=== PATIENT | female | born 1940 | race Caucasian/White ===

== ENCOUNTER 2017-08-13 21:44 | Observation (INO) | payer MEDICARE ==
[2017-08-14] MEDS ORDERED: Ondansetron ODT 4 MG TAB SL PRN (00:28)
[2017-08-14] MEDS ORDERED: Ondansetron HCl/PF 4 MG/2 ML Vial IVP PRN (00:28)
[2017-08-14] MEDS ORDERED: Acetaminophen 325 MG TAB PO PRN ×2 (00:28→07:30)
[2017-08-14] MEDS ORDERED: Dextrose 5 % And 0.9 % NaCl 1,000 ML IV SCH (00:30)
[2017-08-14 01:04] VITALS: BMI 38.5
[2017-08-14] MEDS ORDERED: Dextrose 50% Abboject 50 ML SYRINGE ONE (05:57)
[2017-08-14] MEDS ORDERED: Dextrose 50% Abboject 50 ML SYRINGE SLOW IVP SCH (06:15)
[2017-08-14] MEDS ORDERED: Dextrose 5% in Water 1,000 ML IV SCH (06:15)
[2017-08-14] MEDS ORDERED: Dextrose 10% in Water 1,000 ML IV SCH (06:30)
[2017-08-14] MEDS ORDERED: Dextrose 50% Abboject 50 ML SYRINGE SLOW IVP PRN (07:30)
[2017-08-14] MEDS ORDERED: Ondansetron ODT 4 MG TAB PO PRN (07:30)
[2017-08-14] MEDS ORDERED: Dextrose 5% in Water 1,000 ML IV PRN (07:30)
--- NOTE | 2017-08-14 08:16 | HP ---
Transferred from [place], referred to [facility] by [facility]. PRIMARY CARE PROVIDER: Dr. Campbell ADMITTING DIAGNOSES: Hypoglycemia, nasal fracture. HISTORY OF PRESENT ILLNESS: The patient is alert, oriented x3. She states she is very dehydrated, h as had no liquids for 2 days and she is remarkably uncooperative with questioning. When asked about her medical problems she says "she has everything" Based on emergency room records, she was first se en in the [place] ER for a fall from standing and discharged home. She returned the same day with merlyn luation of hypoglycemia. Apparently had fallen in a parking lot, has been unable to wake her up, fou nd her glucose to be very low. The patient was unable to describe onset of symptoms at that time, sh e received glucagon and then D50 in the emergency room with a failure of her mental status to improve . In the emergency room second visit in [place] her CBC was really unremarkable except for a minor an emia of 11.6 grams of hemoglobin. Her blood sugars were 59 and 57 and eventually increased to 148, c reatinine kinase was modestly elevated at 181, creatinine 1.26, BUN 31, CO2 32, sodium, potassium and chloride normal. Urinalysis was clear. She was transferred to [facility] where she was found to have serial blood sugars of 102, 80 and 143, admitted to the hospital where she currentl y is. As I mentioned before, as I attempted to discuss with her, she just kept saying that she was d ehydrated and the IV fluids she was getting was a joke and that she knew what was wrong with her and her final statement was, "the reason I don't come to the hospital is you people can kill me". PAST MEDICAL HISTORY: She kept saying everything, but I did get out of her that she has diabetes ras litus type 2, insulin-dependent, that she has a cardiomyopathy from Adriamycin given for breast cance r 30 years ago, she had a right mastectomy and an axillary dissection, has subsequently received chem otherapy. MEDICATIONS: The only medication I was able to get out of her is Lantus, she refused to help me any further She did say she took tramadol. Her old records revealed glyburide, metformin, clonazepam, Ambien, torsemide, spironolactone, lisinopril, levothyroxine, Prevacid, Lamotrigine, Combivent, Lantu s 175 units in the p.m. She told me she took 22 in the morning, digoxin, Cymbalta, Flexeril, Plavix, Clemastine, Coreg and Lipitor. These have not been confirmed. ALLERGIES: She states she is allergic to ALL INHALED POLLENS. Her medical allergies listed in the c figueredo are CODEINE and VERAPAMIL. PAST SURGICAL HISTORY: I was able to get out of her she has had a total knee replacement, bilateral and sinus surgery in the past. FAMILY HISTORY: Mother and father both , she states she does not know why. SOCIAL HISTORY: , full code status. No tobacco, no alcohol. No family at bedside. REVIEW OF SYSTEMS: Attempted, as I said before, she is remarkably uncooperative. GENERAL: She says she has had multiple falls, I was not able to get out of her whether she had dizzi ness. EYES: She gave me no history there. ENT: She gave me no history there. CARDIAC: She said she had had no chest pain or smothering spells. RESPIRATIONS: She has no cough or wheezing. GASTROINTESTINAL: She says she has had no nausea, vomiting, abdominal pain or diarrhea. GENITOURINARY: She states she could not make any urine because she was severely dehydrated. MUSCULOSKELETAL: Refused to comment. NEUROLOGICAL: Refused to comment. PSYCHIATRIC: Refused to comment. SKIN: Refused to comment. HEME/LYMPH: Refused to comment. PHYSICAL EXAMINATION: GENERAL: Currently she is alert, oriented. VITAL SIGNS: Blood pressure 136/71, pulse 93, respirations 20, O2 sat 93 on room air, temperature 98 .9. HEENT: Revealed a bloody nose. Pupils grossly equal, round, and reactive. Extraocular movements gr ossly intact. Tympanic membranes; she would not let me examine her ears. Nose revealed dried blood. Oral mucous membranes are dry. NECK: No jugular venous distention, adenopathy or thyromegaly. CHEST: Clear to auscultation and percussion. HEART: Had a regular rate and rhythm. First and second heart sounds were clear. I appreciated no m urmurs or gallops. ABDOMEN: Soft, bowel sounds are normal. There is no hepatosplenomegaly, no mass, no rebound. EXTREMITIES: She had trace edema with no cyanosis or clubbing. PULSES: Carotid, radial, femoral, and dorsalis pedis pulses were palpable. SKIN: Warm and dry. The only lesion noted was her nose. HEME/LYMPH: No tender or swollen lymph nodes in axilla, inguinal or cervical area. NEUROLOGIC: Cranial nerves II-XII are intact. Deep tendon reflexes grossly symmetric. Moves all ex tremities. EKG shows paced rhythm, dual chamber pacing. X-RAY FINDINGS: Chest x-ray: Pacemaker in left upper chest, surgical clips in the right axilla from previous surgery, cardiomegaly, questionable pulmonary vascular congestion, reviewed by me. LABORATORY DATA: Reviewed as given in the present illness. ASSESSMENT: 1. Multiple falls. 2. Hypoglycemia. 3. Diabetes mellitus type 2, insulin-dependent. 4. Cardiomyopathy. 5. Chronic kidney disease stage 3. Accu-Cheks q.4h. will be given. At this time her insulin will be held until we get a firm list of me dicines. She will be placed in the hospital on an observation basis. She will be fed with a consist ent carbohydrate diet. She will be given D5 1/4 normal saline. CBC and basic metabolic profile will be repeated in the morning or later today if appropriate.
[2017-08-14] MEDS: D5 1/4 NS 1,000 ML IV SCH ×3 (08:46→22:02)
[2017-08-14] MEDS ORDERED: clonazePAM 0.5 MG TAB PO PRN (09:24)
[2017-08-14] MEDS ORDERED: Zolpidem Tartrate 5 MG TAB PO PRN (09:51)
[2017-08-14] MEDS: Cyclobenzaprine 10 MG TAB PO PRN ×2 (12:07→22:02)
[2017-08-14] MEDS: traMADol HCl 50 MG TAB PO PRN ×3 (12:07→22:02)
[2017-08-14] MEDS ORDERED: traMADol HCl 50 MG TAB PO PRN (12:36)
[2017-08-14] MEDS ORDERED: [UNRECOGNIZED DRUG - OTHER] PO SCH (21:00)
[2017-08-14] MEDS ORDERED: Carvedilol 25 MG TAB PO SCH (21:00)
[2017-08-14] MEDS ORDERED: Atorvastatin Calcium 40 MG TAB PO SCH (21:00)
[2017-08-14] MEDS: DULoxetine 60 MG CAP PO SCH (21:46)
[2017-08-15 05:29] LABS: Anion Gap 8 mmol/L (10-20); BUN (Urea Nitrogen) 11 mg/dL (9.8-20.1); Calc. Creatinine Clearance 126 mL/min (70-130); Calcium 10.1 mg/dL (7.8-10.44); Carbon Dioxide 30 mmol/L (23-31); Chloride 106 mmol/L (98-107); Estimated GFR-MDRD 87
[2017-08-15] MEDS ORDERED: Levothyroxine Sodium 100 MCG TAB PO SCH (06:00)
[2017-08-15 06:11] LABS: Band 1 % (5-11); Mean Platelet Volume 7.1 fL (7.4-10.4); Neutrophil 38 % (42-75); Red Blood Cell (RBC) Count 3.78 mill/uL (4.20-5.40); White Blood Cell (WBC) Count 5.7 thou/uL (4.8-10.8)
[2017-08-15] MEDS ORDERED: Budesonide 0.5 MG/2 ML NEB NEB SCH (07:00)
[2017-08-15] MEDS ORDERED: Non-Formulary Item 1 EACH (Glyburide/Metformin Hcl [Glyburide/Metformin] 1 TABLET) PO SCH (08:00)
[2017-08-15] MEDS ORDERED: metFORMIN 500 MG TAB PO SCH (08:00)
[2017-08-15] MEDS ORDERED: glyBURIDE 2.5 MG TAB PO SCH (08:00)
[2017-08-15] MEDS ORDERED: ICOSAPENT ETHYL PO SCH (08:00)
[2017-08-15 08:17] VITALS: BP 116/60; TEMP 98.5
[2017-08-15] MEDS: D5 1/4 NS 1,000 ML IV SCH (08:40)
[2017-08-15] MEDS ORDERED: Non-Formulary Item 1 EACH (Ipratropium-Albuterol [Combivent] 2 PUFF) INH SCH (09:00)
[2017-08-15] MEDS ORDERED: Spironolactone 25 MG TAB PO SCH ×2 (09:00)
[2017-08-15] MEDS ORDERED: Clopidogrel Bisulfate 75 MG TAB PO SCH (09:00)
[2017-08-15] MEDS ORDERED: Torsemide 20 MG TAB PO SCH ×2 (09:00)
[2017-08-15] MEDS ORDERED: lamoTRIgine 100 MG TAB PO SCH (09:00)
[2017-08-15] MEDS ORDERED: Digoxin 0.125 MG TAB PO SCH (09:00)
[2017-08-15] MEDS ORDERED: Lisinopril 10 MG TAB PO SCH (09:00)
[2017-08-15] MEDS ORDERED: OMEGA ACID ETHYL ESTERS PO SCH ×2 (09:00)
[2017-08-15] MEDS ORDERED: Montelukast Sodium 10 mg Tablet PO SCH (09:00)
[2017-08-15] MEDS ORDERED: Loratadine 10 MG TAB PO SCH (09:00)
[2017-08-15] MEDS ORDERED: Pregabalin 75 MG CAP PO SCH (09:00)
[2017-08-15] MEDS ORDERED: Carvedilol 25 MG TAB PO SCH (09:00)
[2017-08-15] MEDS: DULoxetine 60 MG CAP PO SCH (10:20)
--- NOTE | 2017-08-15 11:14 | DIS ---
TRANSFER OF CARE NOTE DATE OF ADMISSION: 08/13/2017 DATE OF DISCHARGE: 08/15/2017 DISCHARGE DISPOSITION: Home. PRIMARY CARE PROVIDER: Dr. Campbell FINAL DIAGNOSES: 1. Hypoglycemia. 2. Falls. 3. Altered mental status. 4. Diabetes mellitus type 2 with chronic kidney disease stage 3. 5. Cardiomyopathy. 6. Ill-defined psychiatric problem. 7. History of breast cancer post-resection and chemotherapy. DISCHARGE MEDICATIONS: Lantus 210 units a day has been held. Tramadol 100 mg p.o. t.i.d. p.r.n., Du oNeb 3 mL q.6 p.r.n., Combivent 2 puffs q.i.d., Demadex 40 mg a day, spironolactone 25 mg a day, lis inopril 30 mg a day, Flexeril 10 mg t.i.d. p.r.n., digoxin 125 mcg a day, Lamotrigine 200 mg a day, I mdur 30 mg a day, clemastine fumarate 2.68 mg p.o. b.i.d., Coreg 25 mg twice a day, Pulmicort 0.5 mg nebulized daily, Prevacid 30 mg a day, Vascepa 2 grams b.i.d., Lipitor 80 mg a day, levothyroxine 20 0 mcg a day, glyburide/metformin 1.25/250 once a day, trazodone 100 mg at bedtime, Lyrica 75 mg 3 asya es a day, Cymbalta 60 mg a day. ALLERGIES: CODEINE, ORANGE JUICE and VERAPAMIL. PENDING AT THE TIME OF DISCHARGE: Nothing. CODE STATUS: FULL. HOSPITAL COURSE: The patient transferred to [facility] from [facility] after fal ling, suffering a nasal fracture, noted to have marked hypoglycemia. She was a difficult historian a nd it took a while to get her medicine list from her. Her initial laboratory at [facility] reve aled blood sugars below 60, creatinine 1.26, BUN 31. CK 181. CBC was essentially unremarkable. Her insulin was held. She was fed given D5 after being given D50 and D10. Subsequently, with her insul in being held her blood sugars are 203, 142, 63, 98. Her Hemoglobin A1c was 7. She is being dischar [facility] home which she is agreeable with. She has been told to not take her Lantus to see Dr. Jenni gonzalez within the next 1-2 days to discuss continuing therapy. CONSULTATIONS: None. PROCEDURES: None. CONDITION AT THE TIME OF DISCHARGE: In addition to the laboratory, she had a facial bone study which showed some comminuted, but not displaced nasal fractures. She has marked bruising on her face, but has no active bleeding. I do not think she needs any further evaluation, but she is comfortable wit h seeing Dr. Campbell to decide whether she needs to see ENT or not.
== END 2017-08-15 13:43 | disposition home or self-care (01) ==
LOC: ERS 21:44 → 2SE 22:45
PROVIDERS: ADMIT Internal Medicine; ATTEND Internal Medicine
DX: E11.649 Type 2 diabetes mellitus with hypoglycemia without coma (principal); E11.22 Type 2 diabetes mellitus with diabetic chronic kidney disease; N18.3 Chronic kidney disease, stage 3 (moderate); R41.82 Altered mental status, unspecified; I42.9 Cardiomyopathy, unspecified; F99 Mental disorder, not otherwise specified; Z88.5 Allergy status to narcotic agent; Z88.8 Allergy status to other drugs, medicaments and biological substances; Z91.018 Allergy to other foods; Z79.4 Long term (current) use of insulin; Z79.899 Other long term (current) drug therapy; Z98.890 Other specified postprocedural states; Z91.81 History of falling; Z85.3 Personal history of malignant neoplasm of breast; Z92.21 Personal history of antineoplastic chemotherapy
CPT/HCPCS: 80048; 82962 ×3; 83036; 85025; 96361; 96365; 96366; 96375; 99285; G0378; 36415; 36416; A4216

== ENCOUNTER 2017-08-21 18:07 | Emergency (ER) | payer MEDICARE ==
--- NOTE | 2017-08-21 21:56 | RAD ---
PORTABLE CHEST 08/21/17 PROVIDED CLINICAL HISTORY: Altered mental status. FINDINGS: Comparison 08/13/17. The cardiac and mediastinal silhouette is unchanged in appearance. The left subclavian cardiac pacing device is redemonstrated. No focal consolidation, pleural fluid or pneumothorax apparent. IMPRESSION: No evidence for an acute cardiopulmonary process. POS: [facility]
--- NOTE | 2017-08-21 21:59 | CT ---
CT OF BRAIN 08/21/17 PROVIDED CLINICAL HISTORY: Fall. FINDINGS: Comparison 08/13/17. The ventricular system appears normal in size and morphology. There is no evidence for intracranial h emorrhage or mass effect. The extracranial soft tissues and osseous structures demonstrate No acute a bnormality. IMPRESSION: No evidence for intracranial hemorrhage or mass effect. POS: [facility]
--- NOTE | 2017-08-21 22:01 | CT ---
CT CERVICAL SPINE 08/21/17 PROVIDED CLINICAL HISTORY: FALL. FINDINGS: There is no evidence for fracture or traumatic subluxation. Advanced multilevel degenerative changes are seen. 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 No prev ertebral soft tissue swelling apparent. The visualized lung apices appear clear. IMPRESSION: No evidence for fracture or traumatic subluxation. POS: [facility]
--- NOTE | 2017-08-21 22:17 | CT ---
CT FACIAL BONES 08/21/17 PROVIDED CLINICAL HISTORY: Face pain status post fall. FINDINGS: Correlation is made with prior brain CT of 08/13/17. Comminuted nondisplaced fracture involving the right and left aspects of the nasal bone is redemonstr ated, similar to prior study. No additional fracture is evident. The globes and other orbital content s appear unremarkable. IMPRESSION: Nasal bone fracture is redemonstrated. No evidence for an acute osseous abnormality. POS: [facility]
[2017-08-21 22:22] LABS: Hematocrit 37.9 % (36.0-47.0); Mean Platelet Volume 6.9 fL (7.4-10.4); Red Blood Cell (RBC) Count 4.09 mill/uL (4.20-5.40); White Blood Cell (WBC) Count 6.5 thou/uL (4.8-10.8)
[2017-08-21 22:29] LABS: Neutrophil 31 % (42-75)
[2017-08-21 22:39] LABS: ALT (SGPT) 26 U/L (8-55); AST (SGOT) 22 U/L (5-34); Alkaline Phosphatase 50 U/L (40-150); Anion Gap 14 mmol/L (10-20); BUN (Urea Nitrogen) 24 mg/dL (9.8-20.1); Bilirubin, Total 0.4 mg/dL (0.2-1.2); Calc. Creatinine Clearance 0 mL/min (70-130); Calcium 10.8 mg/dL (7.8-10.44); Carbon Dioxide 26 mmol/L (23-31); Chloride 102 mmol/L (98-107); Estimated GFR-MDRD 56; Globulin 3.6 g/dL (2.4-3.5); Protein, Total 7.7 g/dL (6.0-8.3)
[2017-08-21 22:43] LABS: Troponin I Less than 0.010 ng/mL (< 0.028)
[2017-08-22 03:56] LABS: Bilirubin Negative (Negative); Blood, Urine Negative (Negative); Glucose, Urine (Dipstick) Negative (Negative); Ketone, Urine Negative (Negative); Nitrite Negative (Negative); Protein, Urine (Dipstick) Negative (Neg-Trace); Urobilinogen 0.2 mg/dL (0.2-1.0)
[2017-08-22 03:59] LABS: Bacteria/HPF None Seen HPF (None Seen); Hyaline Casts/LPF 0-3 HYALINE CAST LPF (0-3 Hyaline); RBC/HPF 0-3 HPF (0-3)
== END 2017-08-22 04:28 ==
LOC: ERS 18:07
DX: S02.2XXA Fracture of nasal bones, initial encounter for closed fracture (principal); E78.5 Hyperlipidemia, unspecified; I11.0 Hypertensive heart disease with heart failure; I50.9 Heart failure, unspecified; E03.9 Hypothyroidism, unspecified; E11.9 Type 2 diabetes mellitus without complications; F31.9 Bipolar disorder, unspecified; Z87.891 Personal history of nicotine dependence; Z79.899 Other long term (current) drug therapy; Z91.81 History of falling; W19.XXXA Unspecified fall, initial encounter
CPT/HCPCS: 70450; 70486; 71010; 72125; 80053; 81003; 81015; 82553; 84484; 85025; 87086; 93005

== ENCOUNTER 2017-11-17 22:59 | Inpatient (IN) | payer MEDICARE ==
[2017-11-17 23:41] LABS: #Basophils 0.1 thou/uL (0.0-0.2); #Lymphocytes 0.6 thou/uL (1.20-3.40); #Monocytes 0.5 thou/uL (0.11-0.59); #Neutrophils 7.7 thou/uL (1.40-6.50); %Basophils 0.7 % (0.0-1.0); %Eosinophils 0.3 % (0.0-10.0); %Lymphocytes 7.1 % (21.0-51.0); %Monocytes 5.7 % (0.0-10.0); %Neutrophils 86.1 % (42.0-75.0); Hemoglobin 12.3 g/dL (12.0-16.0); Mean Corpuscular HGB CONC 32.9 g/dL (32.0-36.0); Mean Corpuscular Hemoglobin 29.9 pg (27.0-31.0); Mean Corpuscular Volume 90.7 fl (81.0-99.0); Mean Platelet Volume 7.3 fL (7.4-10.4); Platelet Count 169 thou/uL (130-400); RBC Distribution Width 12.9 % (11.5-14.5); Red Blood Cell (RBC) Count 4.13 mill/uL (4.20-5.40)
[2017-11-17] MEDS ORDERED: Acetaminophen 500 MG TAB ONE (23:50)
[2017-11-17 23:53] LABS: ALT (SGPT) 24 U/L (8-55); AST (SGOT) 31 U/L (5-34); Albumin 3.9 g/dL (3.4-4.8); Alkaline Phosphatase 70 U/L (40-150); Anion Gap 19 mmol/L (10-20); BUN (Urea Nitrogen) 27 mg/dL (9.8-20.1); Bilirubin, Total 0.6 mg/dL (0.2-1.2); Calc. Creatinine Clearance 0 mL/min (70-130); Carbon Dioxide 18 mmol/L (23-31); Chloride 99 mmol/L (98-107); Estimated GFR-MDRD 35; Globulin 3.5 g/dL (2.4-3.5); Potassium 4.7 mmol/L (3.5-5.1); Protein, Total 7.4 g/dL (6.0-8.3); Sodium 131 mmol/L (136-145)
[2017-11-17 23:54] LABS: Bilirubin Negative (Negative); Blood, Urine Moderate (Negative); Clarity CLOUDY (Clear); Glucose, Urine (Dipstick) >=1000 mg/dL (Negative); Leukocyte Moderate (Negative); Nitrite Negative (Negative); Protein, Urine (Dipstick) 100 mg/dL (Neg-Trace); Specific Gravity, Urine 1.027 (1.002-1.036); Urobilinogen 0.2 mg/dL (0.2-1.0); pH, Urine 5.5 (5.0-9.0)
[2017-11-17 23:55] LABS: Glucose 584 mg/dL (83-110)
[2017-11-17 23:57] LABS: Bacteria/HPF Rare-Few HPF (None Seen); Pathc Cast-AUWi Flag 1.62 (0-2.49); Squamous Epithelial 0-3 HPF (0-3)
[2017-11-17 23:57] LABS: Actual Bicarbonate (HCO3a) 20.1 mEq/L (22-26); Base Excess (BEa) -4.4 mEq/L (0 (+/-) 2.5); CO2 Tension 34.9 mmHg (35.0-45.0); Hematocrit-ABG 40.2 % (36.0-47.0); Hemoglobin (Hb) 11.8 g/dL (12.0-16.0); O2 Tension (PaO2) 90.6 mmHg (80.0-100.0); pH, Arterial 7.38 (7.35-7.45)
[2017-11-17 23:58] LABS: Analyzer IN Cardio ER; Calcium, Ionized 1.3 mmol/L (1.12-1.30); Puncture Site RR
[2017-11-18 00:10] LABS: Crystals/HPF 1+ AMORPH URATES HPF (Negative); Hyaline Casts/LPF NONE SEEN LPF (0-3 Hyaline)
[2017-11-18] MEDS ORDERED: Magnesium Sulfate 2 GM/100 ML BAG ONE (00:11)
[2017-11-18] MEDS ORDERED: Bacitracin Zinc 1 Packet ONE (00:29)
[2017-11-18] MEDS ORDERED: Sodium Chloride 0.9% 1,000 ML IV SCH ×3 (01:59→10:15)
[2017-11-18] MEDS ORDERED: traMADol HCl 50 MG TAB PO PRN ×2 (03:20→03:52)
[2017-11-18] MEDS ORDERED: Cyclobenzaprine 10 MG TAB PO PRN (03:20)
[2017-11-18] MEDS ORDERED: Non-Formulary Item 1 EACH (Trazodone [Trazodone] 100 MG) PO PRN (03:20)
[2017-11-18] MEDS ORDERED: HumaLOG 300 UNITS/3 ML VIAL SC PRN (03:22)
[2017-11-18] MEDS ORDERED: Dextrose 50% Abboject 50 ML SYRINGE SLOW IVP PRN (03:22)
[2017-11-18] MEDS ORDERED: Dextrose 5% in Water 1,000 ML IV PRN (03:22)
[2017-11-18 03:26] LABS: Lactic Acid 3.3 mmol/L (0.5-2.2)
[2017-11-18] MEDS ORDERED: Gentamicin 80 MG/2 ML VIAL IVPB SCH (03:30)
[2017-11-18] MEDS ORDERED: GENTAMICIN IVPB PRN (03:35)
[2017-11-18] MEDS ORDERED: Magnesium 2 GM/NS 0.9% 100 ML 2 GM in Premix Bag 1 BAG IVPB SCH (03:45)
[2017-11-18] MEDS ORDERED: Gentamicin Sulfate 380 MG in Sodium Chloride 0.9% 100 ML IVPB SCH (03:45)
[2017-11-18] MEDS: Sodium Chloride 0.9% 1,000 ML IV SCH ×3 (04:31→23:57)
[2017-11-18 04:33] LABS: #Lymphocytes 1.3 thou/uL (1.20-3.40); #Monocytes 0.5 thou/uL (0.11-0.59); #Neutrophils 10.6 thou/uL (1.40-6.50); %Basophils 0.1 % (0.0-1.0); %Eosinophils 0.2 % (0.0-10.0); %Lymphocytes 10.3 % (21.0-51.0); %Monocytes 4.3 % (0.0-10.0); %Neutrophils 85.1 % (42.0-75.0); Hemoglobin 11.8 g/dL (12.0-16.0); Mean Corpuscular HGB CONC 33.5 g/dL (32.0-36.0); Mean Corpuscular Hemoglobin 30.2 pg (27.0-31.0); Mean Corpuscular Volume 90.2 fl (81.0-99.0); Mean Platelet Volume 7.4 fL (7.4-10.4); Platelet Count 162 thou/uL (130-400); RBC Distribution Width 12.9 % (11.5-14.5); Red Blood Cell (RBC) Count 3.91 mill/uL (4.20-5.40); White Blood Cell (WBC) Count 12.4 thou/uL (4.8-10.8)
[2017-11-18 04:35] LABS: Hemoglobin A1c 7.2 % (4.0-6.0)
[2017-11-18] MEDS: Budesonide 0.5 MG/2 ML NEB NEB SCH (04:49)
[2017-11-18 04:50] LABS: Digoxin 0.29 ng/mL (0.8-2.0)
[2017-11-18 04:51] LABS: ALT (SGPT) 23 U/L (8-55); AST (SGOT) 28 U/L (5-34); Albumin 3.6 g/dL (3.4-4.8); Alkaline Phosphatase 59 U/L (40-150); Anion Gap 16 mmol/L (10-20); BUN (Urea Nitrogen) 26 mg/dL (9.8-20.1); Bilirubin, Total 0.4 mg/dL (0.2-1.2); Calc. Creatinine Clearance 62 mL/min (70-130); Calcium 9.8 mg/dL (7.8-10.44); Carbon Dioxide 20 mmol/L (23-31); Chloride 99 mmol/L (98-107); Estimated GFR-MDRD 43; Globulin 3.5 g/dL (2.4-3.5); Glucose 411 mg/dL (83-110); Magnesium 2.1 mg/dL (1.6-2.6); Potassium 4.3 mmol/L (3.5-5.1); Protein, Total 7.1 g/dL (6.0-8.3); Sodium 131 mmol/L (136-145)
[2017-11-18 04:59] LABS: Troponin I 1.652 ng/mL (< 0.028)
[2017-11-18] MEDS ORDERED: Nitroglycerin 0.4 MG TAB (25 Tab Bottle) SL PRN (05:06)
--- NOTE | 2017-11-18 05:07 | HP ---
CHIEF COMPLAINT: Decreased mental status. HISTORY OF PRESENT ILLNESS: This is a 77-year-old female with a known history of significant cardiovascular disease along with a permanent pacemaker with overdrive pacing for ventricular tachycardia, depressed systolic ejection fraction, insulin-dependent diabetes, who presents with decreased mental status. At the time of my evaluation, patient is actually already awake, conversant, and is able to recall entirety of her history. It appears that her initial decreased mental status has been resolved. She was initially transferred to our facility from an outlying emergency department as well. It appears that at this outside facility, she is felt to have urinary tract infection. The patient does recall a history of burning with urination for the past 4 days. She had been trying to self-treat at home with cranberry juice. At the time of my evaluation, the patient is complaining predominantly of chronic shortness of breath for which she typically uses combivent at home; she hasn't received her daily dose yet. She is requesting to use her Combivent and requesting to be placed back on her cardiac medication regimen as she states, " I have the bad heart." REVIEW OF SYSTEMS: As per HPI. Constitutional: The patient denies any overt fevers and chills at home, although she is documented to have a fever in the emergency department upon arrival of 104.5. HEENT: Patient denies any new headaches or vision changes or any recent episodes of dizziness. Cardiovascular : Denies any overt chest pressure, chest pain, shortness of breath as noted above, right now. No recent cough, congestion, postnasal drip. Respiratory: As per above with some shortness of breath. No overt wheezing. Gastrointestinal: Denies any nausea, vomiting, abdominal pain. Denies any diarrhea or constipation issues. Genitourinary: Endorses dysuria as above. Does not notice a significant change in the amount of urine output or the odor of her urine. Musculoskeletal: Denies any new arthralgias or myalgias. PAST MEDICAL HISTORY: As per above. 1. Insulin-dependent type 2 diabetes. 2. Breast cancer, status post right mastectomy, axillary dissection, and chemotherapy. 3. Patient thinks that her heart disease and her diabetes were all secondary to her chemotherapy some years ago. 4. Pulmonary disease, which she states is secondary to her lung disease without diagnosis, but she has a prior echo that demonstrates an EF of 35%, so I suspect she has a component of cardiovascular disease. 5. History of ventricular tachycardia was appropriate, status post permanent pacemaker, is currently overdrive paced. 6. Status post permanent pacemaker. 7. Status post mastectomy. 8. Status post sinus surgery. 9. Status post total knee replacement. HOME MEDICATIONS: Please see the EMR for full details. Patient denies any changes to her home medication regimen in the last month. Does not recall the full list, but is able to tell me that she does use Combivent. She needs her lisinopril, digoxin, carvedilol for her heart. ALLERGIES: CODEINE, which causes emesis, ORANGE JUICE causes nausea and unknown reaction to VERAPAMIL. FAMILY HISTORY: Patient does not provide family history of recurrent infections or cardiovascular disease. SOCIAL HISTORY: Patient denies any alcohol, tobacco, or illicit drug use. She is and indicates her will be her medical decision maker, if she is unable to make her own medical decisions. At this point in time, she is not sure if she wishes to be FULL CODE OR NOT, but has said she "does not want to be a science experiment." Patient currently is presumed to be FULL CODE until she states otherwise. It does not appear that she has any preexisting out of hospital DNR or advanced directive paperwork completed. PHYSICAL EXAMINATION: VITAL SIGNS: Temperature of 98.2, heart rate 110, respirations 20, satting 96% on 2 liters nasal cannula, blood pressure 116/62. GENERAL: Patient is awake, conversant, in no acute distress, lying in the hospital bed. HEENT: Moist mucous membranes. Equal ocular motions are intact. Cranial nerves II-XII grossly intact. Normocephalic, atraumatic. CARDIOVASCULAR: S1, S2. Pulses 2+ bilateral in upper extremities. No pitting pedal edema. Soft heart tones. RESPIRATORY: Diminished throughout. No overt wheezes, rales, or rhonchi. Marginal air movement. Patient currently having very mild conversational dyspnea. ABDOMEN: Positive bowel sounds, large, nontender to palpation. NEUROLOGIC: Moving all 4 extremities and able to self-reposition in the bed without difficulty or assistance. LABORATORY DATA AND IMAGING: WBC 9.0, hemoglobin 12.2, hematocrit 37.4, platelets 164. ABG: pH is 7.38, pCO2 of 34.9 on 2 liters nasal cannula. Chemistry: Sodium 131, potassium 4.7, chloride 99, bicarbonate 18, BUN 27, creatinine 1.47, glucose 584. Lactic acid 4.4, magnesium 1.4, total bilirubin 0.6, AST 31, ALT 24, alkaline phosphatase 70. BNP 213.2. UA significant for 100 of protein, greater than 1000 glucose, moderate blood, and moderate leukoesterase, rbc's 11-20, wbc's greater than 50. Beta-hydroxybutyrate 0.14. Chest x-ray on 11/17/2017, no formal read available at the time of my evaluation demonstrates some cardiomegaly pacemaker noted with some prominent vascular congestion bilaterally. ASSESSMENT AND PLAN: This is 77-year-old lady who initially presented with altered mental status. 1. Altered mental status secondary to sepsis suspected source of urinary tract infection, currently significantly improved. Patient's mental status is currently significantly improved. I would even go as far as to say mostly resolved. Likely termite control representative of metabolic encephalopathy secondary to sepsis. 2. Sepsis with an elevated lactate, temperature, and tachycardia. On presentation to the emergency department, currently significantly improved. Continue with IV fluid and empiric antibiotics. Suspected source is the patient 's urine. Patient does tell me she has a personal history of methicillin- resistant Staphylococcus aureus in the past. We will continue on empiric gentamicin and vancomycin. I would like to deescalate antibiotics as soon as possible. Urine culture has already been obtained. Blood cultures are pending as well. Trend lactate. Patient has reasonably poor skin turgor. No peripheral cyanosis of her digits. 3. Hyperglycemia in the setting of insulin-dependent diabetes. Patient has elevated blood sugars 584 that have been persistent. Patient is insulin- dependent, but patient is not in diabetic ketoacidosis at this point in time. We will initiate IV insulin to improve blood glucose control. Once within reason, patient could be transitioned back to her home regimen, this was discussed with the patient. 4. History of ventricular tachycardia and permanent pacemaker that appears to be overdrive paced at this point in time. Patient is currently on telemetry with no further episodes of V-tach while in the IM so far. Patient does also have some noted hypomagnesemia on admission. She will be given magnesium with repeat daily magnesium-serum concentration monitoring. 5. History of congestive heart failure, currently appears to be stable. Cautious IV fluids. Continue the patient on her home regimen otherwise, I appreciate Cardiology consult. 6. History of pulmonary disease. Patient is evasive when discussing whether or not she truly has chronic obstructive pulmonary disease or emphysema, but states that she thinks it is related to her chemotherapy. We will closely monitor her respiratory status. Resume her home Combivent and DuoNebs. I appreciate Pulmonary and senior electrical project manager consultation with further guidance on her acute illness and respiratory status. 7. Elevated creatinine, unclear if this represents the patient's baseline. Cautious hydration and recheck BMP in the morning with a low threshold to request a renal consultation if needed. 8. Hypothyroidism. Check a TSH. Continue patient on her home levothyroxine. 9. Acute kidney injury. Hold home lisinopril. Patient is presumed FULL CODE, admitted inpatient to the [facility]. DIET: Cardiac. ACTIVITY: As tolerated. Deep venous thrombosis prophylaxis with Lovenox. Greater than 30 minutes critical care time spent coordinating admission for the patient. Thank you for asking me to care for the patient. Questions or concerns, please contact me at [facility]. ANDRE
[2017-11-18] MEDS ORDERED: Heparin 25,000 units/D5W 500 ML IVPB SCH (05:15)
[2017-11-18] MEDS ORDERED: Heparin 10,000 UNITS/ 10 ML VIAL SLOW IVP SCH (05:15)
[2017-11-18 05:58] LABS: Hemoglobin 12.2 g/dL (12.0-16.0); Platelet Count 129 thou/uL (130-400)
[2017-11-18] MEDS ORDERED: Levothyroxine Sodium 100 MCG TAB PO SCH (06:00)
[2017-11-18 06:15] LABS: PTT 33.4 SEC (22.9-36.1)
--- NOTE | 2017-11-18 06:20 | PDOC.EVN ---
Event Note - Event Note Event Note: pt with sudden episode of shaking and accompanying back pain pt states back pain consisstent with known hx of back pain and that she often "wakes up with this" referring to the back pain but has NOT had the accompanying whole body shaking since last august when they took her off lyrica this is approx 20 min s/p breathing treatment which she feels helped pt is still a&ox3 elev HR (120s) elev SBP (170s) during this episode intermittent resolution of shaking with resumption of home regimen
[2017-11-18 06:34] LABS: Troponin I 1.794 ng/mL (< 0.028)
[2017-11-18] MEDS ORDERED: Promethazine HCl 25 MG/ML VIAL IM/IV PRN (06:46)
--- NOTE | 2017-11-18 06:56 | RAD ---
PORTABLE UPRIGHT FRONTAL CHEST RADIOGRAPH: 11/17/2017 HISTORY: Hypoglycemia. Altered mental status. COMPARISON: 08/21/2017 FINDINGS: Stable multilead AICD inserted via a left-sided approach. No pneumothorax or pleural fluid. No foca l consolidation or alveolar edema. Mild pulmonary vascular prominence noted. There is bilateral donaldo ulder degenerative change. There are multiple clips in the right axilla. IMPRESSION: No acute findings. POS: [facility]
[2017-11-18] MEDS: Lorazepam 2 MG/ML VIAL SLOW IVP SCH ×2 (07:35→09:28)
[2017-11-18] MEDS ORDERED: Carvedilol 25 MG TAB PO SCH (08:00)
[2017-11-18] MEDS ORDERED: ICOSAPENT ETHYL 1 GM PO SCH (08:00)
[2017-11-18] MEDS ORDERED: Spironolactone 25 MG TAB PO SCH (08:00)
[2017-11-18 08:16] LABS: Free T4 (Free Thyroxine) 1.14 ng/dL (0.70-1.48)
[2017-11-18] MEDS ORDERED: Heparin 5,000 UNITS/ML VIAL SC SCH (09:00)
[2017-11-18] MEDS ORDERED: Torsemide 20 MG TAB PO SCH (09:00)
[2017-11-18] MEDS ORDERED: Digoxin 0.125 MG TAB PO SCH (09:00)
[2017-11-18] MEDS ORDERED: OMEGA ACID ETHYL ESTERS PO SCH (09:00)
[2017-11-18] MEDS ORDERED: Non-Formulary Item 1 EACH (Lamotrigine [Lamotrigine] 200 MG) PO SCH (09:00)
[2017-11-18] MEDS ORDERED: [UNRECOGNIZED DRUG - OTHER] PO SCH (09:00)
[2017-11-18] MEDS ORDERED: Pregabalin 75 MG CAP PO SCH (09:00)
[2017-11-18] MEDS ORDERED: Non-Formulary Item 1 EACH (Lansoprazole [Prevacid] 30 MG) PO SCH (09:00)
[2017-11-18] MEDS ORDERED: Loratadine 10 MG TAB PO SCH (09:00)
[2017-11-18] MEDS ORDERED: LISINOPRIL 30 MG PO SCH (09:00)
[2017-11-18] MEDS: cefTRIAXone\\ROCEPHIN 2 GM in Sodium Chloride 0.9% 100 ML IVPB SCH (09:28)
[2017-11-18] MEDS ORDERED: Norepinephrine 8 MG/0.9% NS 250 ML IVPB SCH (10:15)
[2017-11-18 10:26] LABS: INR-International Normal Ratio 1.1; Prothrombin Time 14.3 SEC (12.0-14.7)
[2017-11-18] MEDS ORDERED: Midazolam HCl 2 mg/2 ml Vial ONE (10:49)
--- NOTE | 2017-11-18 10:49 | CON ---
DATE OF CONSULTATION: 11/18/2017 CONSULTING PHYSICIAN: Dr. Dunn from the hospitalist group. Following encompassed one-hour critical care time. Total time for my consultation, 70 minutes, of th is 70 minutes greater than 50% of the time was spent either with the patient or on the patient's unit . CHIEF COMPLAINT: Decreased mental status. HISTORY OF PRESENT ILLNESS: This is a 77-year-old female, who was admitted to the hospitalist group last night with altered mental status, which was thought secondary to sepsis. She was also noted to be profoundly hyperglycemic when she was brought in. Intermittently, during the night, she has been having episodes of altered mental status where she has been agitated to the point where the staff in the IMCU thought she needed to be intubated. When I saw her, she actually could answer some question s and did not appear to be in any overt respiratory distress. PAST MEDICAL HISTORY: 1. Insulin-dependent diabetes mellitus, but type 2 in nature. 2. Breast cancer, requiring right mastectomy with axillary node dissection and subsequent chemothera py. 3. Heart disease. 4. Low EF, approximately 35%. 5. Some type of chronic pulmonary disease - is seeing Dr. Bradford at [facility] in the past. Records not available for review. 6. Ventricular tachycardia. 7. Pacemaker placement. 8. Sinus surgery. 9. Total knee replacement. MEDICATIONS PRIOR TO ADMISSION: Tramadol 50 mg 2 tablets 3 times daily as needed, atorvastatin 80 mg daily, Flexeril 10 mg t.i.d., digoxin 125 mcg daily, Vascepa 2 capsules twice daily, isosorbide mono nitrate 30 mg daily, DuoNeb every 6 hours as needed, Combivent 2 puffs every 6 hours as needed, lisin opril 30 mg daily, Synthroid 200 mcg daily, lamotrigine 200 mg daily, Aldactone 25 mg daily, trazodon e 100 mg nightly, Demadex 2 tablets daily, Lyrica 75 mg t.i.d., Prevacid 30 mg daily, fexofenadine 18 0 mg daily, Pulmicort 0.5 mg daily, Coreg 25 mg b.i.d. ALLERGIES: INHALED POLLENS, CODEINE, and VERAPAMIL. SOCIAL HISTORY: Apparently does not smoke, does not consume alcohol. She is . clayton ntly not here to speak. REVIEW OF SYSTEMS: Twelve-point review of systems cannot be obtained, because the patient is uncoope rative and refuses to give answers. PHYSICAL EXAMINATION: VITAL SIGNS: Temperature 98.2, pulse 112, respirations 24, O2 sat 96% on 3 liters, blood pressure 11 6/62. GENERAL: She is actually awake and sometimes answers questions. HEENT: Pupils react. Sclerae icteric. Oropharynx dry. NECK: No JVD. LUNGS: Fairly clear without wheezing or rhonchi. CARDIOVASCULAR: S1 and S2, slightly tachycardic and irregularly irregular. ABDOMEN: Soft, nontender, nondistended. EXTREMITIES: No clubbing, cyanosis, or edema. NEUROLOGIC EXAM: Moves all 4 extremities. SKIN: No obvious lesions. LABORATORY AND X-RAY FINDINGS: White blood cell count 12.4, hemoglobin 11.9, hematocrit 35.3, platel et count 129. PTT 33.4, pH 7.3, pCO2 of 34, pO2 of 90. Sodium 131, potassium 4.3, chloride 99, CO2 of 20, anion gap 16, BUN 26, creatinine 1.2, glucose 411. TSH 0.003. Urinalysis showed glucosuria, too numerous to count white blood cells. Toxicology showed digoxin level 0.29, beta-hydroxybutyrate is 0.14. Chest x-ray demonstrates chronic interstitial changes, pacemaker noted. No acute mass or i nfiltrate. ASSESSMENT: 1. Sepsis syndrome - urosepsis. 2. Hyperglycemia - nonketotic hyperosmolar hyperglycemia. 3. History of ventricular tachycardia. 4. History of congestive heart failure. 5. Question of underlying chronic obstructive pulmonary disease. 6. Depressed TSH on a patient currently on levothyroxine. 7. Slightly elevated BUN and creatinine. PLAN: 1. Judicious hydration. 2. Insulin drip. 3. I would go ahead and cover her empirically with antibiotic therapy - given her renal insufficienc y, I would avoid aminoglycosides, and instead probably lean towards cephalosporin. 4. She is not in need of intubation at this time, but we will continue to monitor for this. 5. Decrease the dose of levothyroxine. 6. Follow with you.
[2017-11-18] MEDS ORDERED: Sedation Protocol FS ONE (11:04)
[2017-11-18] MEDS ORDERED: Vecuronium 10 MG VIAL IVP PRN (11:04)
[2017-11-18] MEDS ORDERED: CCU Electrolyte Replacement 1 EACH FS ONE (11:04)
[2017-11-18] MEDS ORDERED: Midazolam HCl 2 mg/2 ml Vial SLOW IVP SCH (11:15)
[2017-11-18] MEDS ORDERED: Succinylcholine Chloride 200 MG/10 ML VIAL IVP SCH (11:15)
[2017-11-18] MEDS ORDERED: Potassium Chloride 20 MEQ TAB PO PRN (11:16)
[2017-11-18] MEDS ORDERED: Fentanyl BOLUS 250 ML IVPB PRN (11:16)
[2017-11-18] MEDS ORDERED: Potassium Chloride 40 MEQ in Sodium Chloride 0.9% 250 ML 250 ML IVPB PRN (11:16)
[2017-11-18] MEDS ORDERED: Magnesium Oxide 400 MG TAB PO PRN ×2 (11:16)
[2017-11-18] MEDS ORDERED: Magnesium 2 GM/NS 0.9% 100 ML 2 GM in Premix Bag 1 BAG IVPB PRN (11:16)
[2017-11-18] MEDS ORDERED: Potassium Phosphate 9 MMOL in Sodium Chloride 0.9% 100 ML IVPB PRN (11:16)
[2017-11-18] MEDS ORDERED: CCU ELECTROLYTE REPLACEMENT PROTOCOL FS PRN (11:16)
[2017-11-18] MEDS ORDERED: DISCONTINUE PREVIOUS NARCOTIC PAIN MEDICATIONS AND BENZODIAZEPINES FS SCH (11:16)
[2017-11-18] MEDS ORDERED: Morphine 2 MG/ML SYRINGE SLOW IVP PRN (11:16)
[2017-11-18] MEDS ORDERED: fentaNYL Citrate/PF 2,000 MCG in Sodium Chloride 0.9% 60 ML IV SCH (11:16)
[2017-11-18] MEDS ORDERED: Potassium Phosphate 12 MMOL in Sodium Chloride 0.9% 250 ML 250 ML IV PRN (11:16)
[2017-11-18] MEDS ORDERED: Potassium Phosphate 15 MMOL in Sodium Chloride 0.9% 250 ML 250 ML IV PRN (11:16)
[2017-11-18] MEDS ORDERED: Propofol 1,000 MG/100 ML VIAL IV ONE (11:18)
[2017-11-18] MEDS ORDERED: Morphine 4 MG/ML VIAL SLOW IVP PRN (11:30)
--- NOTE | 2017-11-18 11:46 | OP ---
DATE OF SERVICE: 11/18/2017 PROCEDURE: Central line placement, right femoral. PREOPERATIVE DIAGNOSIS: Poor IV access, need for vasopressor. POSTOPERATIVE DIAGNOSES: Successful central line placement. Consent obtained from the patient's [facility] verbally over the phone by Dr. Lawson. DESCRIPTION OF PROCEDURE: The patient's right groin was scrubbed with chlorhexidine and draped steri yolie. It took four nurses to hold the patient and she was thrashing during the procedure. The entry site was first identified with ultrasound and then anesthetized with 1% lidocaine without epinephrin e. Using the modified Seldinger technique, the right femoral vein was entered on the first attempt a nd central line was placed. Three ports flushed venous blood. The line was sutured into position. Sterile barrier with protective antibiotic codeine was placed on top of the central line. The proced ure was tolerated well. PROCEDURE (2): Endotracheal intubation. PREOPERATIVE DIAGNOSIS: Delirium with agitation interfering with medical therapy. POSTOPERATIVE DIAGNOSIS: Delirium with agitation interfering with medical therapy. ANESTESIA: She was given a total of 4 mg of Versed and 100 mg succinylcholine. Succinylcholine was actually given after the intubation. Using a GlideScope, I first attempted to intubate her orally with a 7.5 endotracheal tube, but could not get the tube to go to the vocal cord. I downsized it to a 7.0 endotracheal tube and this was eas jud passed to the vocal cords. The tube was secured at 22 cm at the lip. The placement was confirme d by auscultation and by monitoring O2 sats. Postoperative x-ray is pending.
[2017-11-18] MEDS ORDERED: Succinylcholine Chloride 200 MG/10 ML VIAL ONE (11:56)
[2017-11-18 11:59] LABS: Base Excess (BEa) -6.9 mEq/L (0 (+/-) 2.5); CO2 Tension 39.6 mmHg (35.0-45.0); Hematocrit-ABG 30.7 % (36.0-47.0); Hemoglobin (Hb) 9.9 g/dL (12.0-16.0)
[2017-11-18 12:00] LABS: Calcium, Ionized 1.2 mmol/L (1.12-1.30); Puncture Site LRA
[2017-11-18 12:01] LABS: Actual Bicarbonate (HCO3a) 16.8 mEq/L (22-26); CO2 Tension 33.5 mmHg (35.0-45.0); O2 Tension (PaO2) 79.8 mmHg (80.0-100.0); pH, Arterial 7.32 (7.35-7.45)
[2017-11-18 12:02] LABS: Base Excess (BEa) -8.4 mEq/L (0 (+/-) 2.5); Calcium, Ionized 1.2 mmol/L (1.12-1.30); Hematocrit-ABG 37.9 % (36.0-47.0); Hemoglobin (Hb) 11.1 g/dL (12.0-16.0); Puncture Site LFA
[2017-11-18 12:03] LABS: ALV-art Gradient 163.525 (0-20)
[2017-11-18] MEDS: Levothyroxine 100 MCG SDV IVP SCH (13:00)
--- NOTE | 2017-11-18 13:33 | RAD ---
SINGLE VIEW CHEST: HISTORY: Intubated patient with respiratory failure. COMPARISON: 11/17/2017 FINDINGS: A single view of the chest shows a normal sized cardiomediastinal silhouette. There is an endotrache al tube with its tip just below the lower border of the clavicles. An NG tube courses off the inferi or aspect of the film. There is a left subclavian pacemaker, unchanged in position. There is no stephani dence of consolidation, mass, or pleural effusion. Surgical clips are seen in the right axilla. Deg enerative changes are seen in the spine and shoulders. IMPRESSION: Appropriate position of lines and tubes. POS: [facility]
[2017-11-18] MEDS: Lorazepam 2 MG/ML VIAL SLOW IVP PRN ×2 (14:15→23:39)
[2017-11-18] MEDS ORDERED: Norepinephrine 8 MG, Admixture Fee 1 EACH in Sodium Chloride 0.9% 250 ML 250 ML IVPB PRN (14:36)
[2017-11-18] MEDS: Famotidine 40 MG/4 ML VIAL SLOW IVP SCH (18:00)
--- NOTE | 2017-11-18 18:38 | CON ---
DATE OF CONSULTATION: 11/18/2017 REASON FOR CONSULTATION: Cardiomyopathy and a recent sepsis. PRIMARY PROMOTIONS EXECUTIVE PRODUCER: Dr. Marito Burroughs. HISTORY OF PRESENT ILLNESS: Ms. Sommer is a 77-year-old woman who recently was admitted for mental status changes. She also developed respiratory failure and has since required intubation. The histo ry is limited to the chart. No family available. She has been diagnosed with urosepsis causing hypo tension. PAST MEDICAL HISTORY: Hyperlipidemia, diabetes mellitus, noncardiomyopathy with an angiogram perform ed in 2013 with a mild CAD present. Last echo dated 04/02/2017 with LVEF of 30% to 35%. Ventricular tachycardia, hypercholesterolemia, asthma, status post ICD. ALLERGIES: None. HOME MEDICATIONS: Include Ultram, DuoNeb, vitamin D3, Raisa, torsemide, Pulmicort, trazodone, Adva ir, Aldactone, lisinopril, Lipitor, Synthroid, Coreg, Combivent, Lantus, Prevacid, Flexeril, Glucovan ce, Cymbalta, Vascepa, digoxin, isosorbide. REVIEW OF SYSTEMS: Unobtainable. She is currently intubated. PHYSICAL EXAMINATION: GENERAL: Patient is a pleasant female who is in no acute distress. The patient appears her stated a ge. She is currently intubated and sedated. VITAL SIGNS: Blood pressure 116/70, pulse 95, temperature afebrile. She is currently on Levophed. NEUROLOGIC: The patient is alert and oriented times 3 with no focal neurologic deficits. HEENT: Sclerae without icterus. Mouth has moist mucous membranes with normal pallor. NECK: No JVD. Carotid upstroke brisk. No bruits bilaterally. LUNGS: Clear to auscultation with unlabored respirations. BACK: No scoliosis or kyphosis. CARDIAC: Regular rate and rhythm with normal S1 and S2. No S3 or S4 noted. No significant rubs, murmurs, thrills, or gallops noted throughout the precordium. PMI is not displa cara. There is no parasternal heave. ABDOMEN: Soft, nontender, nondistended. No peritoneal signs present. No hepatosplenomegaly. No ab normal striae. EXTREMITIES: 2+ femoral and 2+ dorsalis pedis pulses. No cyanosis, clubbing, or edema. SKIN: No gross abnormalities. PERTINENT LABORATORY DATA: Hemoglobin 11.8, troponin 1.794, creatinine 1.47. IMPRESSION: 1. Elevated troponin. 2. Sepsis requiring pressure support. 3. Respiratory failure. 4. Nonischemic cardiomyopathy. RECOMMENDATIONS: Ms. Sommer's last angio was in 2013. She may have developed underlying coronary a rtery disease that is worse over the last 4 years, although her elevated troponin likely related to d emand ischemia. At this point, we would continue supportive care. We would recommend heparin x24 ho urs. We will discontinue in a.m. then proceed with DVT prophylaxis. She is on antibiotic therapy an d pressor support. Further recommendations per Dr. Marito Burroughs in a.m.
--- NOTE | 2017-11-18 20:04 | EKG ---
Test Reason : STAT Blood Pressure : / mmHG Vent. Rate : 117 BPM Atrial Rate : 117 BPM P-R Int : 144 ms QRS Dur : 108 ms QT Int : 332 ms P-R-T Axes : 065 -56 070 degrees QTc Int : 463 ms Atrial-sensed ventricular-paced rhythm with frequent Premature ventricular complexes Biventricular pacemaker detected Abnormal ECG When compared with ECG of 21-AUG-2017 21:14, Premature ventricular complexes are now Present Vent. rate has increased BY 44 BPM Confirmed by DESMOND ZHENG, SNeal ([id number]) on 11/18/2017 8:03:35 PM Referred By: PETRA Confirmed By:DR. Terri LOGAN MD
[2017-11-18] MEDS ORDERED: Atorvastatin Calcium 40 MG TAB PO SCH (21:00)
[2017-11-18] MEDS: Propofol 1,000 MG/100 ML VIAL IV PRN (22:15)
[2017-11-18] MEDS ORDERED: Vancomycin HCl 1 GM in Premix Bag 1 BAG IVPB SCH (23:59)
[2017-11-19] MEDS: Lorazepam 2 MG/ML VIAL SLOW IVP PRN ×4 (02:33→15:01)
[2017-11-19 06:08] LABS: ALT (SGPT) 906 U/L (8-55); AST (SGOT) 627 U/L (5-34); Alkaline Phosphatase 50 U/L (40-150); Anion Gap 9 mmol/L (10-20); BUN (Urea Nitrogen) 20 mg/dL (9.8-20.1); Bilirubin, Total 0.3 mg/dL (0.2-1.2); Calc. Creatinine Clearance 87 mL/min (70-130); Calcium 8.8 mg/dL (7.8-10.44); Carbon Dioxide 23 mmol/L (23-31); Cardiac Risk 7.9 (Less than 4.5); Chloride 110 mmol/L (98-107); Cholesterol 119 mg/dl (< 200 Desired); Estimated GFR-MDRD 63; Globulin 2.9 g/dL (2.4-3.5); Glucose 153 mg/dL (83-110); HDL Cholesterol 15 mg/dL (>60 Neg Risk); LDL Cholesterol, Calculated 67 mg/dL; Magnesium 2.1 mg/dL (1.6-2.6); Potassium 4.1 mmol/L (3.5-5.1); Protein, Total 5.9 g/dL (6.0-8.3); Sodium 138 mmol/L (136-145); Triglycerides 185 mg/dL (Less than 150)
[2017-11-19] MEDS: Propofol 1,000 MG/100 ML VIAL IV PRN ×3 (06:16→23:09)
[2017-11-19 06:22] LABS: #Lymphocytes 2.9 thou/uL (1.20-3.40); #Monocytes 0.8 thou/uL (0.11-0.59); #Neutrophils 6.6 thou/uL (1.40-6.50); %Basophils 0.3 % (0.0-1.0); %Eosinophils 0.3 % (0.0-10.0); %Lymphocytes 28.1 % (21.0-51.0); %Monocytes 7.4 % (0.0-10.0); %Neutrophils 63.9 % (42.0-75.0); Mean Corpuscular HGB CONC 32.9 g/dL (32.0-36.0); Mean Corpuscular Volume 91.1 fl (81.0-99.0); PLT Morphology Comment Appears Decreased; Platelet Count 116 thou/uL (130-400); RBC Distribution Width 13.3 % (11.5-14.5); Red Blood Cell (RBC) Count 3.32 mill/uL (4.20-5.40); White Blood Cell (WBC) Count 10.4 thou/uL (4.8-10.8)
[2017-11-19] MEDS: Budesonide 0.5 MG/2 ML NEB NEB SCH (07:25)
[2017-11-19 07:45] LABS: Actual Bicarbonate (HCO3a) 20.4 mEq/L (22-26); Base Excess (BEa) -4.4 mEq/L (0 (+/-) 2.5); CO2 Tension 36.3 mmHg (35.0-45.0); Hematocrit-ABG 28.7 % (36.0-47.0); Hemoglobin (Hb) 9.6 g/dL (12.0-16.0); O2 Tension (PaO2) 87.1 mmHg (80.0-100.0); pH, Arterial 7.37 (7.35-7.45)
[2017-11-19 07:46] LABS: Calcium, Ionized 1.3 mmol/L (1.12-1.30); Puncture Site L.R.
[2017-11-19 07:47] LABS: ALV-art Gradient 152.725 (0-20)
[2017-11-19] MEDS: Sodium Chloride 0.9% 1,000 ML IV SCH ×2 (08:02→15:17)
--- NOTE | 2017-11-19 08:32 | RAD ---
CHEST 1 VIEW: Date: 11/19/17 HISTORY: Ventilated patient. COMPARISON: Chest radiograph from prior day. FINDINGS: The patient is intubated with endotracheal tube tip at the level of the clavicles in good position. E nteric tube tip below diaphragm, although out of field of view. Cardiac silhouette and mediastinal contours are similar. There is nodular appearance of the hilum domitila aterally. Right axillary surgical clips. Severe degenerative disease of both shoulders. No new air space consolidation. IMPRESSION: No significant change in radiographic appearance of chest. POS: [facility]
--- NOTE | 2017-11-19 09:00 | PRG ---
DATE OF SERVICE: 11/19/2017 Thirty-five minutes critical care time. The patient remains intubated on mechanical ventilation. She will wake up and move around, but will not follow commands specifically. PHYSICAL EXAMINATION: VITAL SIGNS: Temperature is 98.4 with a T-max of 101.3, pulse 91, blood pressure 110/61. Total inta ke for 24 hours 6746, output 1925. She has been weaned off the Levophed drip this morning. NEURO: Neurologically pupils are reactive. Sclerae icteric. She has a gag reflex. She moves all 4 extremities. She is currently on propofol drip. HEENT: Otherwise, unremarkable. NECK: No JVD, no bruits. LUNGS: Clear. CARDIOVASCULAR: S1, S2 regular. ABDOMEN: Soft, nontender, no hepatosplenomegaly. EXTREMITIES: No clubbing, cyanosis, or edema. SKIN: No acute lesions. LABORATORY: White blood cell count 10.4, hematocrit 30.2, platelet count 116 with 63% neutrophils, P TT was 65.8. ABG; pH 7.37, pCO2 36, pO2 87, SIMV rate 14, tidal volume 500, PEEP 5, pressure 15, FiO 2 40%. Sodium 138, potassium 4.1, chloride 110, CO2 of 23, BUN 20, creatinine 0.8, glucose 153, AST 627, ALT 906, triglyceride level 185. Free T4 1.14. ASSESSMENT: 1. Septic shock secondary to urosepsis. 2. Acute respiratory failure requiring mechanical ventilation. 3. Uncontrolled type 2 diabetes mellitus with hyperosmolar nonketotic state when she presented. 4. Low ejection fraction - approximately 35%. 5. Elevated liver function tests likely secondary to the hypotension and ischemic hepatitis. 6. Elevated troponin. 7. History of ventricular tachycardia. 8. Depressed TSH with normal T4. PLAN: 1. Stop the heparin drip and start Lovenox for DVT prophylaxis. 2. Cut back on the hydration and start tube feeds. . 3. Check acute hepatitis panel, although I do not think this is viral hepatitis. 4. Probably leave intubated for another 24 hours until her mental status is more reliable. 5. Continue IV antibiotics.
[2017-11-19] MEDS: Digoxin 0.5 MG/2 ML AMP SLOW IVP SCH (09:24)
[2017-11-19] MEDS: cefTRIAXone\\ROCEPHIN 2 GM in Sodium Chloride 0.9% 100 ML IVPB SCH (09:24)
[2017-11-19] MEDS: Enoxaparin Sodium 40 MG/0.4 ML SYRINGE SC SCH (09:24)
[2017-11-19] MEDS: Levothyroxine 100 MCG SDV IVP SCH (09:24)
[2017-11-19] MEDS: Famotidine 40 MG/4 ML VIAL SLOW IVP SCH (09:49)
[2017-11-19 09:56] LABS: Hep B Surf Ag Non-Reactive S/CO (NonReactive); Hep C IgG Ab Non-Reactive (NonReactive); Hep C Index 0.09 S/CO (0-0.79)
[2017-11-19 09:57] LABS: Hep A IgM AB Non-Reactive (NonReactive); Hep A IgM S/CO 0.06 S/CO (0-0.79)
[2017-11-19 09:58] LABS: HBCM Index 0.08 S/CO (0-0.79); Hepatitis B Core IGM Abs Non-Reactive (NonReactive)
--- NOTE | 2017-11-19 10:09 | PRG ---
DATE OF SERVICE: 11/19/2017 SUBJECTIVE: Ms. Sommer is intubated and sedated. REVIEW OF SYSTEMS: Not obtainable. PHYSICAL EXAMINATION: VITAL SIGNS: Blood pressure 126/63 and pulse 98 and regular. LUNGS: Clear. CARDIAC: Normal S1 and normal S2. No murmur, rub, or gallop. ABDOMEN: Soft, nontender. EXTREMITIES: Warm and dry. No clubbing, cyanosis, or edema. PERTINENT LABORATORY: AST has gone up to 627 and the ALT 906. Alkaline phosphatase is 50. Hemoglobin is 10 and WBC 10.4. ASSESSMENT: 1. History of congestive heart failure, systolic, chronic. 2. Respiratory failure. 3. ?Sepsis. 4. Dramatic increase in liver function tests. 5. Previous pacemaker/defibrillator. PLAN: 1. The patient is on low-dose anticoagulation, but the PTT is very high at 65.8. 2. Does not appear to be volume overloaded currently. 3. Continue to monitor. 4. Intravenous antibiotics. 5. She is on norepinephrine. 6. We will review echocardiogram. 7. Blood culture so far negative.
--- NOTE | 2017-11-19 20:25 | PDOC.PN ---
- Subjective Encounter Start Date: 11/19/17 Encounter Start Time: 17:30 -: non-verbal Subjective: f/u acute hypoxic resp failure, septic shock due to likely UTI with E. coli -: tx with Rocephin and Vancomycin. Remains mech ventilated with agitation. - Objective Resuscitation Status: Resuscitation Status FULL:Full Resuscitation MAR Reviewed: Yes Vital Signs & Weight: Vital Signs (12 hours) Temp Pulse Pulse Pulse Resp BP BP 11/19/17 20:00 30 H 11/19/17 19:00 99.5 F 35 H 11/19/17 18:13 106 H 44 H 11/19/17 18:00 42 H 11/19/17 16:14 107 H 146/71 H 11/19/17 16:00 100.2 F H 42 H 11/19/17 15:00 41 H 11/19/17 14:00 38 H 11/19/17 13:00 27 H 11/19/17 12:00 99.4 F 38 H 11/19/17 11:00 29 H 11/19/17 10:00 108 H 23 H 127/68 11/19/17 09:24 91 11/19/17 08:50 90 87 108/56 L BP Pulse Ox Pulse Ox Pulse Ox 11/19/17 20:00 11/19/17 19:00 11/19/17 18:13 97 11/19/17 18:00 11/19/17 16:14 11/19/17 16:00 11/19/17 15:00 11/19/17 14:00 11/19/17 13:00 11/19/17 12:00 11/19/17 11:00 11/19/17 10:00 11/19/17 09:24 11/19/17 08:50 126/63 98 97 Weight Admit Weight 220 lb 0.341 oz Weight 220 lb 0.341 oz Most Recent Monitor Data Heart Rate from ECG 99 NIBP 132/70 NIBP BP-Mean 83 Respiration from ECG 29 SpO2 97 I&O: 11/18/17 11/19/17 11/20/17 06:59 06:59 06:59 Intake Total 4000 4746 1175.9 Output Total 1925 1315 Balance 4000 2821 -139.1 Result Diagrams: 11/19/17 05:25 11/19/17 05:25 Additional Labs: Accuchecks 11/19/17 11/19/17 11/19/17 19:43 18:13 17:20 POC Glucose 157 H 152 H 140 H 11/19/17 11/19/17 11/19/17 16:06 15:15 14:15 POC Glucose 136 H 148 H 149 H 11/19/17 11/19/17 11/19/17 13:09 12:04 11:02 POC Glucose 156 H 151 H 158 H 11/19/17 11/19/17 11/19/17 10:15 09:34 08:34 POC Glucose 167 H 164 H 164 H 11/19/17 11/19/17 11/19/17 07:23 06:18 05:28 POC Glucose 165 H 138 H 149 H 11/19/17 11/19/17 11/19/17 03:57 03:13 02:08 POC Glucose 146 H 148 H 145 H 11/19/17 11/19/17 11/18/17 01:18 00:01 23:37 POC Glucose 145 H 126 H 128 H 11/18/17 11/18/17 11/18/17 22:17 21:07 20:01 POC Glucose 130 H 116 H 112 H 11/18/17 11/18/17 19:04 18:17 POC Glucose 138 H 164 H Microbiology 11/17/17 23:15 Nasal swab Influenza Types A,B Direct EIA - Final 11/18/17 04:13 Venous blood - Right Hand Blood Culture - Preliminary Specimen has been received and culture in progress. No Growth to date. 11/18/17 03:42 Venous blood - Left Hand Blood Culture - Preliminary Specimen has been received and culture in progress. No Growth to date. 11/17/17 23:43 Urine Straight Catheter Urine Culture - Preliminary Escherichia coli 11/17/17 23:28 Venous blood - Left Hand Blood Culture - Preliminary Specimen has been received and culture in progress. No Growth to date. 11/17/17 23:18 Venous blood - Left Hand Blood Culture - Preliminary Specimen has been received and culture in progress. No Growth to date. Laboratory Tests 11/17/17 11/17/17 11/17/17 23:18 23:18 23:28 WBC Hemoglobin A1c Lactic Acid 4.4 H* Total Bilirubin 0.6 AST 31 ALT 24 Troponin I Free T4 Free T3 TSH 3rd Generation Digoxin B-Hydroxybutyrate 0.14 Hepatitis A IgM Ab Hep Bs Antigen Hep B Core IgM Ab Hepatitis C Antibody 11/18/17 11/18/17 11/18/17 02:57 04:13 04:13 WBC Hemoglobin A1c Lactic Acid 3.3 H Total Bilirubin 0.4 AST 28 ALT 23 Troponin I 1.652 H* Free T4 Free T3 TSH 3rd Generation Digoxin B-Hydroxybutyrate Hepatitis A IgM Ab Hep Bs Antigen Hep B Core IgM Ab Hepatitis C Antibody 11/18/17 11/18/17 11/18/17 04:13 04:13 04:13 WBC 12.4 H Hemoglobin A1c 7.2 H Lactic Acid Total Bilirubin AST ALT Troponin I Free T4 Free T3 TSH 3rd Generation Digoxin 0.29 L B-Hydroxybutyrate Hepatitis A IgM Ab Hep Bs Antigen Hep B Core IgM Ab Hepatitis C Antibody 11/18/17 11/18/17 11/18/17 04:13 04:13 05:32 WBC Hemoglobin A1c Lactic Acid Total Bilirubin AST ALT Troponin I 1.794 H* Free T4 1.14 Free T3 1.86 TSH 3rd Generation 0.0030 L Digoxin B-Hydroxybutyrate Hepatitis A IgM Ab Hep Bs Antigen Hep B Core IgM Ab Hepatitis C Antibody 11/19/17 11/19/17 05:25 08:34 WBC Hemoglobin A1c Lactic Acid Total Bilirubin 0.3 AST 627 H ALT 906 H Troponin I Free T4 Free T3 TSH 3rd Generation Digoxin B-Hydroxybutyrate Hepatitis A IgM Ab Non-Reactive Hep Bs Antigen Non-Reactive Hep B Core IgM Ab Non-Reactive Hepatitis C Antibody Non-Reactive Radiology Reviewed by me: Yes (PCXR - no acute infiltrates, lines/tubes in place ) EKG Reviewed by me: Yes (Tele - SR) Phys Exam - Physical Examination sedate on [facility] ventilation ETT/OGT in place HEENT: oral pharynx no lesions Neck: no JVD, supple Respiratory: no wheezing, clear to auscultation bilateral Cardiovascular: RRR Gastrointestinal: soft, non-tender, no distention, positive bowel sounds Musculoskeletal: no edema, pulses present Neurological: moves all 4 limbs sedate on [facility] vent Skin: normal turgor, cap refill <2 seconds Deviation from normal: Price with carmen urine Dx/Plan (1) Septic shock due to Escherichia coli Code(s): A41.51 - SEPSIS DUE TO ESCHERICHIA COLI [E. COLI]; R65.21 - SEVERE SEPSIS WITH SEPTIC SHOCK Status: Acute Comment: Continue Rocephin and Vancomycin, sepsis protocol, low-volume E. coli on Ucx, await final blood cx results (2) Acute respiratory failure with hypoxia Code(s): J96.01 - ACUTE RESPIRATORY FAILURE WITH HYPOXIA Status: Acute Comment: Continue SIMV @40% FIO2, wean per protocol, Pulmonology following (3) Shock liver Code(s): K72.00 - ACUTE AND SUBACUTE HEPATIC FAILURE WITHOUT COMA Status: Acute Comment: Suspected given septic shock, serial monitoring, acute hepatitis panel neg, consider RUQ sono if trending up in next 24h (4) Acute metabolic encephalopathy Code(s): G93.41 - METABOLIC ENCEPHALOPATHY Status: Acute Comment: Unclear if multifactorial including metabolic component, serial monitoring (5) DM hyperosmolarity type II, uncontrolled Code(s): E11.00 - TYPE 2 DIAB W HYPROSM W/O NONKET HYPRGLY-HYPROS COMA ([facility]); E11.65 - TYPE 2 DIABETES MELLITUS WITH HYPERGLYCEMIA Status: Chronic Comment : A1C 7.2, ISS, Insulin gtt, serial accuchecks (6) SULEMAN (acute kidney injury) Code(s): N17.9 - ACUTE KIDNEY FAILURE, UNSPECIFIED Status: Acute Comment: Continue IVF's, avoid nephrotoxic meds and limit contrast exposure (7) CKD (chronic kidney disease) stage 3, GFR 30-59 ml/min Code(s): N18.3 - CHRONIC KIDNEY DISEASE, STAGE 3 (MODERATE) Status: Chronic (8) Cardiomyopathy Code(s): I42.9 - CARDIOMYOPATHY, UNSPECIFIED Status: Acute Comment: EF 25-30 % range, no current acute CHF decompensation (9) Elevated troponin I level Code(s): R74.8 - ABNORMAL LEVELS OF OTHER SERUM ENZYMES Status: Acute Comment: Likely due to demand ischemic state in context of septic shock - Plan continue antibiotics, social worker palliative care, DVT proph w/SCDs Continue critical care and support -: Wean mech ventilation as clinically tolerated and per protocol -: Continue Rocephin/Vancomyin -: Await final Blood cx results -: PCXR in am * Am lab: CMP, CBC, ABG, Mg++
[2017-11-19 23:17] LABS: Vancomycin, Trough 3.2 ug/mL
[2017-11-19] MEDS ORDERED: Vancomycin HCl 1 GM in Premix Bag 1 BAG IVPB SCH (23:59)
[2017-11-19] MEDS ORDERED: Vancomycin HCl 1.5 GM in Sodium Chloride 0.9% 250 ML 300 ML IVPB SCH (23:59)
[2017-11-20] MEDS: Lorazepam 2 MG/ML VIAL SLOW IVP PRN ×2 (00:09→11:09)
[2017-11-20 04:43] LABS: #Lymphocytes 1.5 thou/uL (1.20-3.40); #Monocytes 0.5 thou/uL (0.11-0.59); %Basophils 0.1 % (0.0-1.0); %Eosinophils 0.5 % (0.0-10.0); %Lymphocytes 25.1 % (21.0-51.0); %Monocytes 8.9 % (0.0-10.0); %Neutrophils 65.4 % (42.0-75.0); Hemoglobin 9.4 g/dL (12.0-16.0); Mean Corpuscular HGB CONC 32.8 g/dL (32.0-36.0); Mean Corpuscular Hemoglobin 29.9 pg (27.0-31.0); Mean Corpuscular Volume 91.2 fl (81.0-99.0); Mean Platelet Volume 8.4 fL (7.4-10.4); Platelet Count 100 thou/uL (130-400); RBC Distribution Width 13.1 % (11.5-14.5); Red Blood Cell (RBC) Count 3.14 mill/uL (4.20-5.40); White Blood Cell (WBC) Count 6.1 thou/uL (4.8-10.8)
[2017-11-20 04:49] LABS: ALT (SGPT) 1074 U/L (8-55); AST (SGOT) 511 U/L (5-34); Albumin 2.9 g/dL (3.4-4.8); Alkaline Phosphatase 67 U/L (40-150); Anion Gap 9 mmol/L (10-20); BUN (Urea Nitrogen) 14 mg/dL (9.8-20.1); Bilirubin, Total 0.4 mg/dL (0.2-1.2); Calc. Creatinine Clearance 106 mL/min (70-130); Calcium 9.5 mg/dL (7.8-10.44); Carbon Dioxide 25 mmol/L (23-31); Chloride 114 mmol/L (98-107); Estimated GFR-MDRD 80; Globulin 2.9 g/dL (2.4-3.5); Glucose 154 mg/dL (83-110); Potassium 4.5 mmol/L (3.5-5.1); Protein, Total 5.8 g/dL (6.0-8.3); Sodium 143 mmol/L (136-145)
[2017-11-20] MEDS: Sodium Chloride 0.9% 1,000 ML IV SCH (05:06)
[2017-11-20] MEDS: Propofol 1,000 MG/100 ML VIAL IV PRN ×4 (05:10→23:36)
[2017-11-20] MEDS: Budesonide 0.5 MG/2 ML NEB NEB SCH (06:39)
[2017-11-20 07:28] LABS: Actual Bicarbonate (HCO3a) 22.2 mEq/L (22-26); Base Excess (BEa) -2.6 mEq/L (0 (+/-) 2.5); CO2 Tension 38.4 mmHg (35.0-45.0); Hematocrit-ABG 27.6 % (36.0-47.0); Hemoglobin (Hb) 9.6 g/dL (12.0-16.0); pH, Arterial 7.38 (7.35-7.45)
[2017-11-20 07:29] LABS: Calcium, Ionized 1.3 mmol/L (1.12-1.30); Puncture Site L.R.
[2017-11-20] MEDS ORDERED: Dextrose 5% in Water 1,000 ML IV PRN (07:41)
[2017-11-20] MEDS ORDERED: Dextrose 50% Abboject 50 ML SYRINGE SLOW IVP PRN (07:41)
[2017-11-20] MEDS ORDERED: Sodium Chloride 0.45% 1,000 ML IV SCH (07:45)
--- NOTE | 2017-11-20 08:28 | PRG ---
DATE OF SERVICE: 11/20/2017 The patient remains intubated on mechanical ventilation. There have been no acute issues overnight. PHYSICAL EXAMINATION: VITAL SIGNS: Her temperature is 99.5 with a T-max of 100.2, pulse 96, blood pressure 121/68. 24 surya r intake 2078, output 2365. HEENT: Pupils react. Sclerae icteric. Oropharynx clear. NECK: No JVD. LUNGS: Fairly clear. CARDIAC: S1, S2, slightly tachycardic without murmur. ABDOMEN: Soft, nontender, nondistended. EXTREMITIES: No clubbing, cyanosis. She has trace edema. LABORATORY DATA: Sodium 143, potassium 4.5, chloride 114, CO2 25, BUN 14, creatinine 0.7, glucose 15 4, AST 511, ALT 1074. Albumin 2.9, pH 7.38, pCO2 38, pO2 112 on SIMV rate 10, tidal volume 500, PEEP 5, pressure support 10, FiO2 40%. White blood cell count 6.1, hemoglobin 9.4, hematocrit 28.6, plat elet count 100. Her urine culture is growing out E. coli which is sensitive to all organisms. ASSESSMENT: 1. Acute respiratory failure requiring mechanical ventilation. 2. Urosepsis. 3. Septic shock which has resolved. 4. Low ejection fraction - approximately 35%. 5. Uncontrolled type 2 diabetes mellitus at the time of admission, which is now improved. 6. Elevated liver function tests, which are likely secondary to hypotension at the time of admission and ischemic hepatitis - serologies for viral hepatitis are all negative. 7. Elevated troponin. 8. History of ventricular tachycardia. PLAN: 1. The plan today would be to lighten her sedation and see if we could move towards extubating the p atient. I have stopped the vancomycin as she is not growing anything on cultures that would need van comycin for coverage. 2. Change IV fluids to half normal saline. 3. Add Reglan as it appears she is not tolerating her tube feeds well. 4. Stop the insulin drip and start subcutaneous insulin and decrease Accu-Cheks to q.4h. The above encompassed 35 minutes critical care time.
[2017-11-20] MEDS: Metoclopramide HCl 10 MG/2 ML VIAL IVP SCH ×3 (09:06→19:46)
--- NOTE | 2017-11-20 09:17 | RAD ---
FRONTAL RADIOGRAPH CHEST: Date: 11-20-17 Comparison: 11-19-17 History: Ventilated CCU patient. FINDINGS: Endotracheal tube and nasogastric tube in stable proper position. Stable prominence of the cardiac si lhouette. Patchy opacity persists in the right perihilar region and the left lung base. There is no p neumothorax evident. There is a stable multi-lead AICD. Aeration has slightly worsened within the lef t lung base when compared to the prior exam. IMPRESSION: Lines and tubes as above. Hazy nonspecific increased pulmonary parenchymal opacity in the right perih ilar region in the right lung base as detailed above. POS: [facility]
[2017-11-20] MEDS: Furosemide 20 MG/2 ML VIAL SLOW IVP SCH (09:23)
[2017-11-20] MEDS: Insulin Detemir 100 UNITS/ML 40 UNITS in Pre-Filled Syringe 1 EACH SC SCH (09:24)
[2017-11-20] MEDS: Enoxaparin Sodium 40 MG/0.4 ML SYRINGE SC SCH (09:25)
[2017-11-20] MEDS: Digoxin 0.5 MG/2 ML AMP SLOW IVP SCH (09:25)
[2017-11-20] MEDS: cefTRIAXone\\ROCEPHIN 2 GM in Sodium Chloride 0.9% 100 ML IVPB SCH (09:31)
[2017-11-20] MEDS: Levothyroxine 100 MCG SDV IVP SCH (09:32)
[2017-11-20] MEDS: Famotidine 40 MG/4 ML VIAL SLOW IVP SCH (09:36)
--- NOTE | 2017-11-20 11:22 | PRG ---
DATE OF SERVICE: 11/18/2017 CARDIOLOGY FOLLOWUP SUBJECTIVE: Ms. Sommer is sedated now. She is off all the pressors. She looks comfortable. PHYSICAL EXAMINATION: VITAL SIGNS: Her blood pressure 119/64, pulse 96, it is sinus. LUNGS: Clear. CARDIAC: Normal S1 and normal S2. ABDOMEN: Soft, nontender. EXTREMITIES: Mild edema. SKIN: Warm and dry. PERTINENT LABORATORY DATA: Potassium is 4.5 and hemoglobin is 9.4. ASSESSMENT: 1. Sepsis pattern, improved. 2. Respiratory failure. 3. History of congestive heart failure. PLAN: 1. We will give a dose of intravenous Lasix and probably has received a lot of fluid in the last few days in view of the septic shock. 2. We will check iron levels and anemia may benefit from intravenous iron. 3. Liver function test is slightly improved that was probably related to hypoperfusion I suspect. T he AST is slightly better and ALT is not improved. Bilirubin is still in the normal range.
[2017-11-20] MEDS ORDERED: Vancomycin HCl 1 GM in Premix Bag 1 BAG IVPB SCH (12:00)
[2017-11-20] MEDS: Insulin Regular 300 UNITS/3 ML VIAL SC PRN ×4 (13:42→23:53)
--- NOTE | 2017-11-20 19:37 | PDOC.PN ---
- Subjective Encounter Start Date: 11/20/17 Encounter Start Time: 19:00 Subjective: f/u for septic shock likely due to UTI with E. coli and acute resp failure -: on mech ventilation. Remains unweanable after trial off Propofol. Agitates -: easily per nursing. Off Insulin gtt and glucose stabilizing. - Objective Resuscitation Status: Resuscitation Status FULL:Full Resuscitation MAR Reviewed: Yes Vital Signs & Weight: Vital Signs (12 hours) Temp Pulse Pulse Pulse Resp BP BP 11/20/17 19:08 100 28 H 11/20/17 18:00 17 11/20/17 17:19 94 140/71 11/20/17 16:00 99.2 F 18 11/20/17 14:50 112 H 116 H 115/65 11/20/17 14:00 18 11/20/17 13:17 110 H 11/20/17 13:16 109 H 36 H 11/20/17 12:00 18 11/20/17 11:04 107 H 141/77 H 11/20/17 10:09 121 H 11/20/17 10:00 32 H 11/20/17 09:25 98 11/20/17 08:00 98.6 F 107 H 18 BP Pulse Ox Pulse Ox Pulse Ox 11/20/17 19:08 98 11/20/17 18:00 11/20/17 17:19 11/20/17 16:00 11/20/17 14:50 166/91 H 97 98 11/20/17 14:00 11/20/17 13:17 11/20/17 13:16 98 11/20/17 12:00 11/20/17 11:04 11/20/17 10:09 11/20/17 10:00 11/20/17 09:25 11/20/17 08:00 110 H Weight Admit Weight 220 lb 0.341 oz Weight 220 lb 0.341 oz Most Recent Monitor Data Heart Rate from ECG 105 NIBP 130/72 NIBP BP-Mean 95 Respiration from ECG 31 SpO2 98 I&O: 11/19/17 11/20/17 11/21/17 06:59 06:59 06:59 Intake Total 4746 2789.9 1761.3 Output Total 1925 2365 2750 Balance 2821 424.9 -988.7 Result Diagrams: 11/20/17 04:28 11/20/17 04:28 Additional Labs: Accuchecks 11/20/17 11/20/17 11/20/17 17:36 12:21 09:01 POC Glucose 201 H 200 H 168 H 11/20/17 11/20/17 11/20/17 06:12 04:07 03:20 POC Glucose 170 H 149 H 138 H 11/20/17 11/20/17 11/20/17 02:19 01:22 00:23 POC Glucose 158 H 132 H 136 H 11/19/17 11/19/17 11/19/17 23:10 22:10 21:41 POC Glucose 112 H 115 H 114 H 11/19/17 11/19/17 20:24 19:43 POC Glucose 123 H 157 H Microbiology 11/17/17 23:43 Urine Straight Catheter Urine Culture - Final Escherichia coli 11/17/17 23:15 Nasal swab Influenza Types A,B Direct EIA - Final 11/18/17 04:13 Venous blood - Right Hand Blood Culture - Preliminary Specimen has been received and culture in progress. No Growth to date. 11/18/17 04:13 Venous blood - Right Hand Blood Culture - Preliminary NO GROWTH AT 48 HOURS 11/18/17 03:42 Venous blood - Left Hand Blood Culture - Preliminary Specimen has been received and culture in progress. No Growth to date. 11/18/17 03:42 Venous blood - Left Hand Blood Culture - Preliminary NO GROWTH AT 48 HOURS 11/17/17 23:43 Urine Straight Catheter Urine Culture - Preliminary Escherichia coli 11/17/17 23:28 Venous blood - Left Hand Blood Culture - Preliminary Specimen has been received and culture in progress. No Growth to date. 11/17/17 23:28 Venous blood - Left Hand Blood Culture - Preliminary NO GROWTH AT 48 HOURS 11/17/17 23:18 Venous blood - Left Hand Blood Culture - Preliminary Specimen has been received and culture in progress. No Growth to date. 11/17/17 23:18 Venous blood - Left Hand Blood Culture - Preliminary NO GROWTH AT 48 HOURS Laboratory Tests 11/17/17 11/17/17 11/17/17 23:18 23:18 23:28 WBC Hemoglobin A1c Lactic Acid 4.4 H* Total Bilirubin 0.6 AST 31 ALT 24 Alkaline Phosphatase Troponin I Free T4 Free T3 TSH 3rd Generation Digoxin B-Hydroxybutyrate 0.14 Hepatitis A IgM Ab Hep Bs Antigen Hep B Core IgM Ab Hepatitis C Antibody 11/18/17 11/18/17 11/18/17 02:57 04:13 04:13 WBC Hemoglobin A1c Lactic Acid 3.3 H Total Bilirubin 0.4 AST 28 ALT 23 Alkaline Phosphatase Troponin I 1.652 H* Free T4 Free T3 TSH 3rd Generation Digoxin B-Hydroxybutyrate Hepatitis A IgM Ab Hep Bs Antigen Hep B Core IgM Ab Hepatitis C Antibody 11/18/17 11/18/17 11/18/17 04:13 04:13 04:13 WBC 12.4 H Hemoglobin A1c 7.2 H Lactic Acid Total Bilirubin AST ALT Alkaline Phosphatase Troponin I Free T4 Free T3 TSH 3rd Generation Digoxin 0.29 L B-Hydroxybutyrate Hepatitis A IgM Ab Hep Bs Antigen Hep B Core IgM Ab Hepatitis C Antibody 11/18/17 11/18/17 11/18/17 04:13 04:13 05:32 WBC Hemoglobin A1c Lactic Acid Total Bilirubin AST ALT Alkaline Phosphatase Troponin I 1.794 H* Free T4 1.14 Free T3 1.86 TSH 3rd Generation 0.0030 L Digoxin B-Hydroxybutyrate Hepatitis A IgM Ab Hep Bs Antigen Hep B Core IgM Ab Hepatitis C Antibody 11/19/17 11/19/17 11/20/17 05:25 08:34 04:28 WBC Hemoglobin A1c Lactic Acid Total Bilirubin 0.3 AST 627 H 511 H ALT 906 H 1074 H Alkaline Phosphatase 67 Troponin I Free T4 Free T3 TSH 3rd Generation Digoxin B-Hydroxybutyrate Hepatitis A IgM Ab Non-Reactive Hep Bs Antigen Non-Reactive Hep B Core IgM Ab Non-Reactive Hepatitis C Antibody Non-Reactive Radiology Reviewed by me: Yes (PCXR - hazy densities R lung base/perihilar region, lines/tubes in place) EKG Reviewed by me: Yes (Tele - SR in 90's) Phys Exam - Physical Examination sedate, mech ventilation HEENT: oral pharynx no lesions Neck: no JVD, supple Respiratory: no wheezing, clear to auscultation bilateral Cardiovascular: RRR Gastrointestinal: soft, non-tender, no distention, positive bowel sounds Musculoskeletal: no edema, pulses present ext movement with stimulation/agitation or tube adjustments Neurological: moves all 4 limbs Skin: normal turgor, cap refill <2 seconds Dx/Plan (1) Septic shock due to Escherichia coli Code(s): A41.51 - SEPSIS DUE TO ESCHERICHIA COLI [E. COLI]; R65.21 - SEVERE SEPSIS WITH SEPTIC SHOCK Status: Acute Comment: Sepsis resolving, Continue Rocephin, sepsis protocol, low-volume E. coli on Ucx, await final blood cx results (2) Acute respiratory failure with hypoxia Code(s): J96.01 - ACUTE RESPIRATORY FAILURE WITH HYPOXIA Status: Acute Comment: Continue SIMV @40% FIO2, wean per protocol, Pulmonology following (3) Shock liver Code(s): K72.00 - ACUTE AND SUBACUTE HEPATIC FAILURE WITHOUT COMA Status: Acute Comment: Improved, Suspected given septic shock, serial monitoring, acute hepatitis panel neg, consider RUQ sono if trending up in next 24h (4) Acute metabolic encephalopathy Code(s): G93.41 - METABOLIC ENCEPHALOPATHY Status: Acute Comment: Unclear if multifactorial including metabolic component, serial monitoring (5) DM hyperosmolarity type II, uncontrolled Code(s): E11.00 - TYPE 2 DIAB W HYPROSM W/O NONKET HYPRGLY-HYPROS COMA ([facility]); E11.65 - TYPE 2 DIABETES MELLITUS WITH HYPERGLYCEMIA Status: Chronic Comment : A1C 7.2, ISS, Detemir 40u sc qam, serial accuchecks (6) SULEMAN (acute kidney injury) Code(s): N17.9 - ACUTE KIDNEY FAILURE, UNSPECIFIED Status: Acute Comment: resolving, Continue IVF's, avoid nephrotoxic meds and limit contrast exposure (7) CKD (chronic kidney disease) stage 3, GFR 30-59 ml/min Code(s): N18.3 - CHRONIC KIDNEY DISEASE, STAGE 3 (MODERATE) Status: Chronic (8) Cardiomyopathy Code(s): I42.9 - CARDIOMYOPATHY, UNSPECIFIED Status: Acute Comment: EF 25-30 % range, no current acute CHF decompensation (9) Elevated troponin I level Code(s): R74.8 - ABNORMAL LEVELS OF OTHER SERUM ENZYMES Status: Acute Comment: Likely due to demand ischemic state in context of septic shock - Plan continue antibiotics, social sciences professor, respiratory therapy, DVT proph w/SCDs Continue critical support -: Mech ventilation with attempts at weaning per Pulmonology -: Continue Rocephin 2gm IV daily -: Vancomycin d/c'd -: PCXR in am * AM lab: CMP, CBC, Mg++, Iron studies
[2017-11-21] MEDS: Metoclopramide HCl 10 MG/2 ML VIAL IVP SCH ×4 (02:04→20:48)
[2017-11-21] MEDS: Insulin Regular 300 UNITS/3 ML VIAL SC PRN ×4 (03:47→21:08)
[2017-11-21 04:14] LABS: #Eosinphils 0.1 thou/uL (0.0-0.7); #Lymphocytes 1.3 thou/uL (1.20-3.40); #Monocytes 0.6 thou/uL (0.11-0.59); #Neutrophils 2.6 thou/uL (1.40-6.50); %Basophils 0.2 % (0.0-1.0); %Eosinophils 1.5 % (0.0-10.0); %Lymphocytes 28.1 % (21.0-51.0); %Monocytes 12.3 % (0.0-10.0); %Neutrophils 57.8 % (42.0-75.0); Hemoglobin 9.2 g/dL (12.0-16.0); Mean Corpuscular HGB CONC 33.4 g/dL (32.0-36.0); Mean Corpuscular Hemoglobin 30.4 pg (27.0-31.0); Mean Corpuscular Volume 90.9 fl (81.0-99.0); Platelet Count 117 thou/uL (130-400); RBC Distribution Width 13.1 % (11.5-14.5); Red Blood Cell (RBC) Count 3.04 mill/uL (4.20-5.40); White Blood Cell (WBC) Count 4.5 thou/uL (4.8-10.8)
[2017-11-21 04:17] LABS: Iron 34 ug/dL (50-170); Iron Binding Capacity, Total 169 mcg/dL (265-497)
[2017-11-21] MEDS: Propofol 1,000 MG/100 ML VIAL IV PRN (04:17)
[2017-11-21 04:18] LABS: ALT (SGPT) 707 U/L (8-55); AST (SGOT) 130 U/L (5-34); Albumin 2.8 g/dL (3.4-4.8); Alkaline Phosphatase 58 U/L (40-150); Anion Gap 9 mmol/L (10-20); BUN (Urea Nitrogen) 16 mg/dL (9.8-20.1); Bilirubin, Total 0.3 mg/dL (0.2-1.2); Calc. Creatinine Clearance 102 mL/min (70-130); Calcium 9.5 mg/dL (7.8-10.44); Carbon Dioxide 26 mmol/L (23-31); Chloride 113 mmol/L (98-107); Estimated GFR-MDRD 76; Globulin 2.9 g/dL (2.4-3.5); Glucose 233 mg/dL (83-110); Iron 35 ug/dL (50-170); Magnesium 1.7 mg/dL (1.6-2.6); Potassium 4.1 mmol/L (3.5-5.1); Protein, Total 5.7 g/dL (6.0-8.3); Sodium 144 mmol/L (136-145)
[2017-11-21] MEDS: Budesonide 0.5 MG/2 ML NEB NEB SCH (05:56)
[2017-11-21 06:21] LABS: Actual Bicarbonate (HCO3a) 23.9 mEq/L (22-26); Base Excess (BEa) -0.5 mEq/L (0 (+/-) 2.5); CO2 Tension 38.4 mmHg (35.0-45.0); Hemoglobin (Hb) 9.5 g/dL (12.0-16.0); O2 Tension (PaO2) 105.3 mmHg (80.0-100.0); pH, Arterial 7.41 (7.35-7.45)
[2017-11-21 06:22] LABS: Analyzer IN Cardio ER; Calcium, Ionized 1.4 mmol/L (1.12-1.30)
[2017-11-21] MEDS: Enoxaparin Sodium 40 MG/0.4 ML SYRINGE SC SCH (08:43)
[2017-11-21] MEDS: Furosemide 20 MG/2 ML VIAL SLOW IVP SCH ×2 (08:43→14:38)
[2017-11-21] MEDS: Famotidine 40 MG/4 ML VIAL SLOW IVP SCH ×2 (08:43→21:05)
[2017-11-21] MEDS: Digoxin 0.5 MG/2 ML AMP SLOW IVP SCH (08:44)
[2017-11-21] MEDS: Levothyroxine 100 MCG SDV IVP SCH (08:44)
[2017-11-21] MEDS ORDERED: Furosemide 40 MG/4 ML VIAL SLOW IVP SCH (08:45)
--- NOTE | 2017-11-21 09:03 | PRG ---
DATE OF SERVICE: 11/21/2017 Forty five minutes critical care time. SUBJECTIVE: The patient remains intubated on mechanical ventilation. Attempts were made to wean her yesterday, but she did develop respiratory distress and severe agitation during those trials. PHYSICAL EXAMINATION: VITAL SIGNS: Temperature 98.8, pulse 100, blood pressure 143/75. A 24 hour intake 3236, output 3695 , weight 220 pounds. HEENT: Pupils react. Sclerae anicteric. Oropharynx clear. NECK: No adenopathy or JVD. LUNGS: Clear. CARDIAC: S1 and S2 regular without murmur. ABDOMEN: Soft and nontender. EXTREMITIES: No edema. LABORATORY DATA AND IMAGING DATA: White blood cell count 4.5, hemoglobin 9.2, hematocrit 27.6, plate let count 117. A pH 7.41, pCO2 of 30, pO2 105 on SIMV rate 10, tidal of 500, PEEP 5, pressure suppor t 10, and FIO2 40%. Sodium 144, potassium 4.1, chloride 113, CO2 26, BUN 16, creatinine 0.7, glucose 233, AST 130, ALT 707. Chest x-ray shows no acute changes. IMPRESSION: 1. Acute respiratory failure secondary to sepsis syndrome. 2. Urosepsis. 3. Resolved septic shock. 4. Low ejection fraction. 5. Diabetes mellitus type 2. 6. Elevated liver function tests, which are secondary to shock liver and appeared to be improving. 7. Elevated troponin. 8. History of ventricular tachycardia. PLAN: I will make another attempt today to try to extubate her by weaning her sedation. If for some reason she becomes too agitated or develops respiratory distress, then I think Precedex may need to be used for of sedative instead. Further disposition to follow.
[2017-11-21] MEDS: cefTRIAXone\\ROCEPHIN 2 GM in Sodium Chloride 0.9% 100 ML IVPB SCH (09:12)
[2017-11-21] MEDS: Insulin Detemir 100 UNITS/ML 40 UNITS in Pre-Filled Syringe 1 EACH SC SCH (09:12)
--- NOTE | 2017-11-21 09:48 | RAD ---
PORTABLE CHEST: HISTORY: Respiratory distress. COMPARISON: 11/20/2017 FINDINGS: Endotracheal and NG tubes are in satisfactory position. Heart size is enlarged with a pacemaker in p lace. Parenchymal lung changes are similar to the prior exam. Postoperative changes of the right ax illa and right breast region are again noted. IMPRESSION: Essentially stable exam. POS: LORENZO
[2017-11-21] MEDS ORDERED: Furosemide 20 MG/2 ML VIAL SLOW IVP SCH (13:30)
[2017-11-21] MEDS: Lisinopril 5 MG TAB PO SCH ×2 (13:50→21:21)
[2017-11-21] MEDS: Enalaprilat Dihydrate 1.25 MG/ML VIAL SLOW IVP SCH ×2 (13:50→17:28)
[2017-11-21] MEDS: Spironolactone 25 MG TAB PO SCH ×2 (13:50→17:29)
[2017-11-21] MEDS: Metoprolol Tartrate 5 MG/5 ML VIAL IVP SCH ×2 (13:51→20:02)
--- NOTE | 2017-11-21 14:22 | PRG ---
DATE OF SERVICE: 11/21/2017 SUBJECTIVE: Ms. Sommer is on the ventilator. When she tried to be weaned yesterday, she became tac hypneic and cannot be weaned. PHYSICAL EXAMINATION: VITAL SIGNS: Her blood pressure 150/70, pulse 103. LUNGS: Clear. CARDIAC: She is tachycardic for rest with a heart rate of 100. ABDOMEN: Soft and nontender. ASSESSMENT: 1. Congestive heart failure, systolic, chronic. I suspect she probably is in heart failure to some degree. 2. Respiratory failure. PLAN: 1. We are going to check OptiVol to see if there is evidence of heart failure. 2. Treat with furosemide. She is on MANN inhibitor and spironolactone. Further recommendations base d on optimal findings.
--- NOTE | 2017-11-21 16:44 | PDOC.PN ---
- Subjective Encounter Start Date: 11/21/17 Encounter Start Time: 16:25 Subjective: f/u for resp failure s/p mech vent and extubation this am around 0900 -: Nsg reports pt agitated, not following commands and moving all limbs -: spontaneously. No fever noted but elevated BP, HR and RR noted. - Objective Resuscitation Status: Resuscitation Status FULL:Full Resuscitation MAR Reviewed: Yes Vital Signs & Weight: Vital Signs (12 hours) Temp Pulse Pulse Pulse Resp BP BP 11/21/17 14:14 102 H 96 165/78 H 11/21/17 13:50 122 H 161/80 H 11/21/17 12:00 98.6 F 11/21/17 11:35 122 H 30 H 11/21/17 08:44 103 H 11/21/17 08:10 103 H 153/74 H 11/21/17 08:00 97.9 F 103 H 18 11/21/17 06:00 23 H 11/21/17 05:59 100 118/62 11/21/17 05:56 82 28 H BP Pulse Ox Pulse Ox Pulse Ox 11/21/17 14:14 141/77 H 95 95 11/21/17 13:50 11/21/17 12:00 93 L 11/21/17 11:35 97 11/21/17 08:44 11/21/17 08:10 11/21/17 08:00 98 11/21/17 06:00 11/21/17 05:59 11/21/17 05:56 100 Weight Admit Weight 220 lb 0.341 oz Weight 220 lb 0.341 oz Most Recent Monitor Data Heart Rate from ECG 114 NIBP 152/95 NIBP BP-Mean 108 Respiration from ECG 26 SpO2 95 I&O: 11/20/17 11/21/17 11/22/17 06:59 06:59 06:59 Intake Total 2789.9 3236.3 Output Total 2365 3695 2450 Balance 424.9 -458.7 -2450 Result Diagrams: 11/21/17 03:35 11/21/17 03:35 Additional Labs: Accuchecks 11/21/17 11/21/17 11/21/17 14:36 08:56 03:45 POC Glucose 221 H 234 H 236 H 03/21/18 03/21/18 03/21/18 23:53 20:28 17:36 POC Glucose 200 H 218 H 201 H Microbiology 11/17/17 23:43 Urine Straight Catheter Urine Culture - Final Escherichia coli 11/17/17 23:15 Nasal swab Influenza Types A,B Direct EIA - Final 11/18/17 04:13 Venous blood - Right Hand Blood Culture - Preliminary Specimen has been received and culture in progress. No Growth to date. 11/18/17 04:13 Venous blood - Right Hand Blood Culture - Preliminary NO GROWTH AT 48 HOURS 11/18/17 03:42 Venous blood - Left Hand Blood Culture - Preliminary Specimen has been received and culture in progress. No Growth to date. 11/18/17 03:42 Venous blood - Left Hand Blood Culture - Preliminary NO GROWTH AT 48 HOURS 11/17/17 23:43 Urine Straight Catheter Urine Culture - Preliminary Escherichia coli 11/17/17 23:28 Venous blood - Left Hand Blood Culture - Preliminary Specimen has been received and culture in progress. No Growth to date. 11/17/17 23:28 Venous blood - Left Hand Blood Culture - Preliminary NO GROWTH AT 48 HOURS 11/17/17 23:18 Venous blood - Left Hand Blood Culture - Preliminary Specimen has been received and culture in progress. No Growth to date. 11/17/17 23:18 Venous blood - Left Hand Blood Culture - Preliminary NO GROWTH AT 48 HOURS Laboratory Tests 11/17/17 11/17/17 11/17/17 23:18 23:18 23:28 WBC Hemoglobin A1c Lactic Acid 4.4 H* Iron TIBC % Saturation Ferritin Total Bilirubin 0.6 AST 31 ALT 24 Alkaline Phosphatase Troponin I Free T4 Free T3 TSH 3rd Generation Digoxin B-Hydroxybutyrate 0.14 Hepatitis A IgM Ab Hep Bs Antigen Hep B Core IgM Ab Hepatitis C Antibody 11/18/17 11/18/17 11/18/17 02:57 04:13 04:13 WBC Hemoglobin A1c Lactic Acid 3.3 H Iron TIBC % Saturation Ferritin Total Bilirubin 0.4 AST 28 ALT 23 Alkaline Phosphatase Troponin I 1.652 H* Free T4 Free T3 TSH 3rd Generation Digoxin B-Hydroxybutyrate Hepatitis A IgM Ab Hep Bs Antigen Hep B Core IgM Ab Hepatitis C Antibody 11/18/17 11/18/17 11/18/17 04:13 04:13 04:13 WBC 12.4 H Hemoglobin A1c 7.2 H Lactic Acid Iron TIBC % Saturation Ferritin Total Bilirubin AST ALT Alkaline Phosphatase Troponin I Free T4 Free T3 TSH 3rd Generation Digoxin 0.29 L B-Hydroxybutyrate Hepatitis A IgM Ab Hep Bs Antigen Hep B Core IgM Ab Hepatitis C Antibody 11/18/17 11/18/17 11/18/17 04:13 04:13 05:32 WBC Hemoglobin A1c Lactic Acid Iron TIBC % Saturation Ferritin Total Bilirubin AST ALT Alkaline Phosphatase Troponin I 1.794 H* Free T4 1.14 Free T3 1.86 TSH 3rd Generation 0.0030 L Digoxin B-Hydroxybutyrate Hepatitis A IgM Ab Hep Bs Antigen Hep B Core IgM Ab Hepatitis C Antibody 11/19/17 11/19/17 11/20/17 05:25 08:34 04:28 WBC Hemoglobin A1c Lactic Acid Iron TIBC % Saturation Ferritin Total Bilirubin 0.3 AST 627 H 511 H ALT 906 H 1074 H Alkaline Phosphatase 67 Troponin I Free T4 Free T3 TSH 3rd Generation Digoxin B-Hydroxybutyrate Hepatitis A IgM Ab Non-Reactive Hep Bs Antigen Non-Reactive Hep B Core IgM Ab Non-Reactive Hepatitis C Antibody Non-Reactive 11/21/17 11/21/17 11/21/17 03:35 03:35 03:35 WBC Hemoglobin A1c Lactic Acid Iron 35 L 34 L TIBC 169 L % Saturation 20 Ferritin 754.17 H Total Bilirubin AST 130 H ALT 707 H Alkaline Phosphatase Troponin I Free T4 Free T3 TSH 3rd Generation Digoxin B-Hydroxybutyrate Hepatitis A IgM Ab Hep Bs Antigen Hep B Core IgM Ab Hepatitis C Antibody Radiology Reviewed by me: Yes (PCXR - mild haziness, cephalization, lines/tubes in place) EKG Reviewed by me: Yes (Tele - sinus tachycardia) Phys Exam - Physical Examination moves spontaneously in bed, does not follow commands or open eyes to name HEENT: oral pharynx no lesions Neck: no JVD, supple Respiratory: no wheezing, clear to auscultation bilateral tachycardia Gastrointestinal: soft, non-tender, no distention, positive bowel sounds Musculoskeletal: no edema, pulses present does not track or open eyes to name or stimulation Neurological: moves all 4 limbs Skin: normal turgor, cap refill <2 seconds Deviation from normal: Pirce with clear urine Dx/Plan (1) Septic shock due to Escherichia coli Code(s): A41.51 - SEPSIS DUE TO ESCHERICHIA COLI [E. COLI]; R65.21 - SEVERE SEPSIS WITH SEPTIC SHOCK Status: Acute Comment: Sepsis resolving, Continue Rocephin, sepsis protocol, low-volume E. coli on Ucx, await final blood cx results (2) Acute respiratory failure with hypoxia Code(s): J96.01 - ACUTE RESPIRATORY FAILURE WITH HYPOXIA Status: Acute Comment: Extubated 11/21/17, Pulmonology following (3) Shock liver Code(s): K72.00 - ACUTE AND SUBACUTE HEPATIC FAILURE WITHOUT COMA Status: Acute Comment: Improved, Suspected given septic shock, serial monitoring, acute hepatitis panel neg, consider RUQ sono if trending up in next 24h (4) Acute metabolic encephalopathy Code(s): G93.41 - METABOLIC ENCEPHALOPATHY Status: Acute Comment: Unclear if multifactorial including metabolic component, serial monitoring, CT brain today to r/o central process, ?withdrawal symptoms (5) DM hyperosmolarity type II, uncontrolled Code(s): E11.00 - TYPE 2 DIAB W HYPROSM W/O NONKET HYPRGLY-HYPROS COMA ([facility]); E11.65 - TYPE 2 DIABETES MELLITUS WITH HYPERGLYCEMIA Status: Chronic Comment : A1C 7.2, ISS, Detemir 40u sc qam, serial accuchecks (6) SULEMAN (acute kidney injury) Code(s): N17.9 - ACUTE KIDNEY FAILURE, UNSPECIFIED Status: Acute Comment: resolving, Continue IVF's, avoid nephrotoxic meds and limit contrast exposure (7) CKD (chronic kidney disease) stage 3, GFR 30-59 ml/min Code(s): N18.3 - CHRONIC KIDNEY DISEASE, STAGE 3 (MODERATE) Status: Chronic (8) Cardiomyopathy Code(s): I42.9 - CARDIOMYOPATHY, UNSPECIFIED Status: Acute Comment: EF 25-30 % range, no current acute CHF decompensation (9) Elevated troponin I level Code(s): R74.8 - ABNORMAL LEVELS OF OTHER SERUM ENZYMES Status: Acute Comment: Likely due to demand ischemic state in context of septic shock - Plan continue antibiotics, social media manager, respiratory therapy, DVT proph w/SCDs Continue close monitoring -: IV Metoprolol and Vasotec for BP and HR control -: CT brain today -: Ativan prn agitation -: AM lab: CMP, CBC * Continue Rocephin 2gm IV daily
[2017-11-21] MEDS ORDERED: Lorazepam 2 MG/ML VIAL ONE (16:51)
--- NOTE | 2017-11-21 18:56 | CT ---
CT BRAIN NONCONTRAST: 11/21/17 HISTORY: 77-year-old female with persistent altered mental status and agitation. FINDINGS: There is no midline shift or any other mass effect. There is no evidence of acute intracranial hemor rhage, large cortical infarct, obstructive hydrocephalus, or extraaxial fluid collection. The calvar ium is intact. IMPRESSION: No acute intracranial findings. jn [] POS: LORENZO
[2017-11-21] MEDS ORDERED: hydrALAZINE 20 MG/ML VIAL SLOW IVP PRN (21:49)
[2017-11-21 22:25] LABS: CO2 Tension 39.9 mmHg (35.0-45.0); pH, Arterial 7.41 (7.35-7.45)
[2017-11-21 22:26] LABS: ALV-art Gradient 106.085 (0-20); Actual Bicarbonate (HCO3a) 24.8 mEq/L (22-26); Base Excess (BEa) 0.3 mEq/L (0 (+/-) 2.5); Hemoglobin (Hb) 11.7 g/dL (12.0-16.0); O2 Tension (PaO2) 70.6 mmHg (80.0-100.0); Puncture Site LRA
[2017-11-22] MEDS: Enalaprilat Dihydrate 1.25 MG/ML VIAL SLOW IVP SCH ×5 (00:17→23:48)
[2017-11-22] MEDS: Insulin Regular 300 UNITS/3 ML VIAL SC PRN ×5 (00:37→22:06)
[2017-11-22] MEDS: Metoprolol Tartrate 5 MG/5 ML VIAL IVP SCH ×6 (04:33→19:27)
[2017-11-22] MEDS: Metoclopramide HCl 10 MG/2 ML VIAL IVP SCH (04:35)
[2017-11-22 05:39] LABS: #Lymphocytes 1.2 thou/uL (1.20-3.40); #Monocytes 0.7 thou/uL (0.11-0.59); #Neutrophils 4.1 thou/uL (1.40-6.50); %Basophils 0.2 % (0.0-1.0); %Eosinophils 0.3 % (0.0-10.0); %Lymphocytes 20.4 % (21.0-51.0); %Monocytes 11.3 % (0.0-10.0); %Neutrophils 67.8 % (42.0-75.0); Hemoglobin 11.2 g/dL (12.0-16.0); Mean Corpuscular HGB CONC 33.2 g/dL (32.0-36.0); Mean Corpuscular Volume 90.4 fl (81.0-99.0); Mean Platelet Volume 8.3 fL (7.4-10.4); Platelet Count 154 thou/uL (130-400); RBC Distribution Width 12.9 % (11.5-14.5); Red Blood Cell (RBC) Count 3.71 mill/uL (4.20-5.40); White Blood Cell (WBC) Count 6.1 thou/uL (4.8-10.8)
[2017-11-22 05:45] LABS: INR-International Normal Ratio 1.3; PTT 29.6 SEC (22.9-36.1); Prothrombin Time 16.1 SEC (12.0-14.7)
[2017-11-22] MEDS: Furosemide 20 MG/2 ML VIAL SLOW IVP SCH ×2 (05:50→14:13)
[2017-11-22 05:53] LABS: ALT (SGPT) 504 U/L (8-55); AST (SGOT) 66 U/L (5-34); Albumin 3.2 g/dL (3.4-4.8); Alkaline Phosphatase 64 U/L (40-150); Anion Gap 13 mmol/L (10-20); BUN (Urea Nitrogen) 20 mg/dL (9.8-20.1); Bilirubin, Total 0.6 mg/dL (0.2-1.2); Calc. Creatinine Clearance 103 mL/min (70-130); Calcium 10.2 mg/dL (7.8-10.44); Carbon Dioxide 26 mmol/L (23-31); Chloride 114 mmol/L (98-107); Estimated GFR-MDRD 78; Globulin 3.5 g/dL (2.4-3.5); Glucose 239 mg/dL (83-110); Magnesium 1.6 mg/dL (1.6-2.6); Potassium 3.5 mmol/L (3.5-5.1); Protein, Total 6.7 g/dL (6.0-8.3); Sodium 149 mmol/L (136-145)
[2017-11-22] MEDS: Budesonide 0.5 MG/2 ML NEB NEB SCH (05:55)
[2017-11-22 06:24] LABS: Actual Bicarbonate (HCO3a) 27.9 mEq/L (22-26); Base Excess (BEa) 2.9 mEq/L (0 (+/-) 2.5); CO2 Tension 44.8 mmHg (35.0-45.0); Hemoglobin (Hb) 10.7 g/dL (12.0-16.0); O2 Tension (PaO2) 100.5 mmHg (80.0-100.0); pH, Arterial 7.41 (7.35-7.45)
[2017-11-22 06:25] LABS: Puncture Site RRA
[2017-11-22] MEDS: Potassium Chloride 40 MEQ in Premix Bag 1 BAG IVPB PRN (06:45)
[2017-11-22] MEDS: Spironolactone 25 MG TAB PO SCH ×2 (08:20→15:58)
[2017-11-22] MEDS: Lisinopril 5 MG TAB PO SCH (08:21)
--- NOTE | 2017-11-22 08:24 | RAD ---
UPRIGHT PORTABLE CHEST ONE VIEW: HISTORY: A 77-year-old female with a history of respiratory insufficiency. COMPARISON: 11/21/2017 FINDINGS: Monitor leads overly the chest. Left ICD. Surgical clips, right axilla. Borderline heart size with increased linear and interstitial markings bilaterally, stable. IMPRESSION: Stable mild cardiomegaly and vascular congestion with increased linear and interstitial parenchymal c hanges and small pleural effusions bilaterally. Continued short term followup for clearing or stabil ity. POS: OFF
--- NOTE | 2017-11-22 09:16 | PRG ---
DATE OF SERVICE: 11/22/2017 SUBJECTIVE: The patient remains in the CCU. She was extubated yesterday, but has been grossly encep halopathic throughout the day yesterday. Today, I can get her to open her eyes and follow commands b y moving her hands and feet. She will not speak to me. She had a brain CT yesterday that was negati ve. PHYSICAL EXAMINATION: VITAL SIGNS: Temperature is 98.2, pulse 108, blood pressure 126/59, O2 sat 100%. Total intake for 2 4 hours 3236, output 3695. HEENT: Unremarkable. NECK: No JVD. LUNGS: Fairly clear anteriorly. CARDIOVASCULAR: S1, S2 regular without audible murmur. ABDOMEN: Soft, obese, nontender. EXTREMITIES: No clubbing, cyanosis, or edema. LABORATORY DATA AND X-RAY FINDINGS: Her chest x-ray shows cardiomegaly and chronic interstitial jacinto ges. CBC: White blood cell count 6.1, hemoglobin 11.2, hematocrit 33.6, platelet count 154. INR 1. 3. A pH 7.41, pCO2 of 44, pO2 of 100 on BiPAP 14/8. Sodium 149, potassium 3.5, chloride 114, CO2 of 26, BUN 20, creatinine 0.7, glucose 239, AST 66, ALT 504, albumin 3.2. ASSESSMENT: 1. Metabolic encephalopathy which is slowly improving. Some of this may be sepsis, but I think most defect is residual effects of the sedation she was on for endotracheal intubation. 2. Status post acute respiratory failure. 3. Urosepsis. 4. Septic shock which is resolved. 5. Low ejection fraction. 6. Diabetes mellitus type 2. 7. Elevated liver function tests secondary to shock liver, which continue to improve. 8. History of ventricular tachycardia. RECOMMENDATIONS: 1. Discontinue all sedative medications. 2. Up in a chair as tolerated. 3. She can probably come off BiPAP while she is not sleeping. 4. We would hold the diuretics today if at all possible because her sodium is increasing. 5. I have been in constant discussion with the patient's daughter.
--- NOTE | 2017-11-22 09:33 | PRG ---
DATE OF SERVICE: 11/22/2017 Ms. Sommer remains on the CPAP. PHYSICAL EXAMINATION: VITAL SIGNS: Her blood pressure 110/60, pulse 84 regular. LUNGS: Clear anteriorly and laterally. CARDIAC: Normal S1 and S2. The device which reads impedance in the lungs, indicating she is in congestive heart failure. ASSESSMENT: 1. Cardiomyopathy. 2. Respiratory failure. 3. Possible pneumonia. 4. Currently unable to eat. She is n.p.o. PLAN: 1. She is receiving intravenous MANN inhibitor. 2. We will continue intravenous diuretics. 3. Cannot take spironolactone currently. 4. She is on intravenous beta torsten to control heart rate. 5. In view of the high sodium we will give her some free water half normal saline, may need to give D5W.
[2017-11-22] MEDS: Sodium Chloride 0.45% 1,000 ML IV SCH ×2 (11:02→22:10)
[2017-11-22] MEDS: cefTRIAXone\\ROCEPHIN 2 GM in Sodium Chloride 0.9% 100 ML IVPB SCH (11:07)
[2017-11-22] MEDS: Enoxaparin Sodium 40 MG/0.4 ML SYRINGE SC SCH (11:08)
[2017-11-22] MEDS: Levothyroxine 100 MCG SDV IVP SCH (11:08)
[2017-11-22] MEDS: Digoxin 0.5 MG/2 ML AMP SLOW IVP SCH (11:10)
[2017-11-22] MEDS: Famotidine 40 MG/4 ML VIAL SLOW IVP SCH ×2 (11:11→22:00)
[2017-11-22] MEDS: Insulin Detemir 100 UNITS/ML 40 UNITS in Pre-Filled Syringe 1 EACH SC SCH (11:14)
[2017-11-22] MEDS ORDERED: Lorazepam 2 MG/ML VIAL SLOW IVP PRN (14:10)
--- NOTE | 2017-11-22 18:46 | PDOC.PN ---
- Subjective Encounter Start Date: 11/22/17 Encounter Start Time: 17:10 Subjective: f/u s/p resp failure and septic shock with E. coli UTI. Off mech vent and -: remains encephalopathic, agitated now in wrist restraints. CT brain negativ - Objective Resuscitation Status: Resuscitation Status FULL:Full Resuscitation MAR Reviewed: Yes Vital Signs & Weight: Vital Signs (12 hours) Temp Pulse Resp BP Pulse Ox 11/22/17 18:22 110 H 23 H 100 11/22/17 17:46 148/74 H 11/22/17 14:14 138/85 11/22/17 12:00 98.6 F 95 11/22/17 11:37 99 20 100 11/22/17 11:10 81 11/22/17 08:21 81 114/62 11/22/17 08:00 97.5 F L 81 20 100 11/22/17 07:00 97.5 F L Weight Admit Weight 220 lb 0.341 oz Weight 225 lb 8 oz Most Recent Monitor Data Heart Rate from ECG 96 NIBP 142/82 NIBP BP-Mean 100 Respiration from ECG 13 SpO2 100 I&O: 11/21/17 11/22/17 11/23/17 06:59 06:59 06:59 Intake Total 3236.3 0 Output Total 1275 5767 2100 Balance -458.7 -8145 -2100 Result Diagrams: 11/22/17 05:14 11/22/17 05:14 Additional Labs: Accuchecks 11/22/17 11/22/17 11/22/17 17:42 11:22 05:17 POC Glucose 230 H 206 H 236 H 11/22/17 11/21/17 00:32 21:02 POC Glucose 168 H 183 H Microbiology 11/17/17 23:43 Urine Straight Catheter Urine Culture - Final Escherichia coli 11/17/17 23:15 Nasal swab Influenza Types A,B Direct EIA - Final 11/18/17 04:13 Venous blood - Right Hand Blood Culture - Preliminary Specimen has been received and culture in progress. No Growth to date. 11/18/17 04:13 Venous blood - Right Hand Blood Culture - Preliminary NO GROWTH AT 48 HOURS 11/18/17 03:42 Venous blood - Left Hand Blood Culture - Preliminary Specimen has been received and culture in progress. No Growth to date. 11/18/17 03:42 Venous blood - Left Hand Blood Culture - Preliminary NO GROWTH AT 48 HOURS 11/17/17 23:43 Urine Straight Catheter Urine Culture - Preliminary Escherichia coli 11/17/17 23:28 Venous blood - Left Hand Blood Culture - Preliminary Specimen has been received and culture in progress. No Growth to date. 11/17/17 23:28 Venous blood - Left Hand Blood Culture - Preliminary NO GROWTH AT 48 HOURS 11/17/17 23:18 Venous blood - Left Hand Blood Culture - Preliminary Specimen has been received and culture in progress. No Growth to date. 11/17/17 23:18 Venous blood - Left Hand Blood Culture - Preliminary NO GROWTH AT 48 HOURS Laboratory Tests 11/17/17 11/17/17 11/17/17 23:18 23:18 23:28 WBC Sodium Hemoglobin A1c Lactic Acid 4.4 H* Iron TIBC % Saturation Ferritin Total Bilirubin 0.6 AST 31 ALT 24 Alkaline Phosphatase Troponin I Free T4 Free T3 TSH 3rd Generation Digoxin B-Hydroxybutyrate 0.14 Hepatitis A IgM Ab Hep Bs Antigen Hep B Core IgM Ab Hepatitis C Antibody 11/18/17 11/18/17 11/18/17 02:57 04:13 04:13 WBC Sodium Hemoglobin A1c Lactic Acid 3.3 H Iron TIBC % Saturation Ferritin Total Bilirubin 0.4 AST 28 ALT 23 Alkaline Phosphatase Troponin I 1.652 H* Free T4 Free T3 TSH 3rd Generation Digoxin B-Hydroxybutyrate Hepatitis A IgM Ab Hep Bs Antigen Hep B Core IgM Ab Hepatitis C Antibody 11/18/17 11/18/17 11/18/17 04:13 04:13 04:13 WBC 12.4 H Sodium Hemoglobin A1c 7.2 H Lactic Acid Iron TIBC % Saturation Ferritin Total Bilirubin AST ALT Alkaline Phosphatase Troponin I Free T4 Free T3 TSH 3rd Generation Digoxin 0.29 L B-Hydroxybutyrate Hepatitis A IgM Ab Hep Bs Antigen Hep B Core IgM Ab Hepatitis C Antibody 11/18/17 11/18/17 11/18/17 04:13 04:13 05:32 WBC Sodium Hemoglobin A1c Lactic Acid Iron TIBC % Saturation Ferritin Total Bilirubin AST ALT Alkaline Phosphatase Troponin I 1.794 H* Free T4 1.14 Free T3 1.86 TSH 3rd Generation 0.0030 L Digoxin B-Hydroxybutyrate Hepatitis A IgM Ab Hep Bs Antigen Hep B Core IgM Ab Hepatitis C Antibody 11/19/17 11/19/17 11/20/17 05:25 08:34 04:28 WBC Sodium Hemoglobin A1c Lactic Acid Iron TIBC % Saturation Ferritin Total Bilirubin 0.3 AST 627 H 511 H ALT 906 H 1074 H Alkaline Phosphatase 67 Troponin I Free T4 Free T3 TSH 3rd Generation Digoxin B-Hydroxybutyrate Hepatitis A IgM Ab Non-Reactive Hep Bs Antigen Non-Reactive Hep B Core IgM Ab Non-Reactive Hepatitis C Antibody Non-Reactive 11/21/17 11/21/17 11/21/17 03:35 03:35 03:35 WBC Sodium 144 Hemoglobin A1c Lactic Acid Iron 35 L 34 L TIBC 169 L % Saturation 20 Ferritin 754.17 H Total Bilirubin AST 130 H ALT 707 H Alkaline Phosphatase Troponin I Free T4 Free T3 TSH 3rd Generation Digoxin B-Hydroxybutyrate Hepatitis A IgM Ab Hep Bs Antigen Hep B Core IgM Ab Hepatitis C Antibody 11/22/17 05:14 WBC Sodium Hemoglobin A1c Lactic Acid Iron TIBC % Saturation Ferritin Total Bilirubin AST 66 H ALT 504 H Alkaline Phosphatase 64 Troponin I Free T4 Free T3 TSH 3rd Generation Digoxin B-Hydroxybutyrate Hepatitis A IgM Ab Hep Bs Antigen Hep B Core IgM Ab Hepatitis C Antibody Radiology Reviewed by me: Yes (PCXR - vascular prominence bilat) EKG Reviewed by me: Yes (Tele - V-paced) Phys Exam - Physical Examination opens eyes briefly to name then goes to sleep, restless and agitated HEENT: PERRLA, oral pharynx no lesions Neck: no JVD, supple diminished in bases, few basilar crackles Cardiovascular: RRR Gastrointestinal: soft, non-tender, no distention, positive bowel sounds mild LE edema Musculoskeletal: pulses present opens eyes briefly to name, mumbles, does not follow commands Neurological: moves all 4 limbs Skin: normal turgor, cap refill <2 seconds Deviation from normal: Merrill with clear urine Dx/Plan (1) Acute metabolic encephalopathy Code(s): G93.41 - METABOLIC ENCEPHALOPATHY Status: Acute Comment: Likely multifactorial including metabolic component, serial monitoring, CT brain negative, ? withdrawal symptoms, minimize psychotropic meds (2) Acute hypernatremia Code(s): E87.0 - HYPEROSMOLALITY AND HYPERNATREMIA Status: Acute Comment: Continue IVF D51/2NS at 80ml/h, serial Na+ monitoring (3) Septic shock due to Escherichia coli Code(s): A41.51 - SEPSIS DUE TO ESCHERICHIA COLI [E. COLI]; R65.21 - SEVERE SEPSIS WITH SEPTIC SHOCK Status: Acute Comment: Sepsis resolving, Continue Rocephin, sepsis protocol, low-volume E. coli on Ucx, await final blood cx results (4) Acute respiratory failure with hypoxia Code(s): J96.01 - ACUTE RESPIRATORY FAILURE WITH HYPOXIA Status: Acute Comment: Extubated 11/21/17, Pulmonology following, supplemental O2 via NC (5) Shock liver Code(s): K72.00 - ACUTE AND SUBACUTE HEPATIC FAILURE WITHOUT COMA Status: Acute Comment: Improved, Suspected given septic shock, serial monitoring, appears to be resolving (6) DM hyperosmolarity type II, uncontrolled Code(s): E11.00 - TYPE 2 DIAB W HYPROSM W/O NONKET HYPRGLY-HYPROS COMA ([facility]); E11.65 - TYPE 2 DIABETES MELLITUS WITH HYPERGLYCEMIA Status: Chronic Comment : A1C 7.2, ISS, Detemir 40u sc qam, serial accuchecks (7) SULEMAN (acute kidney injury) Code(s): N17.9 - ACUTE KIDNEY FAILURE, UNSPECIFIED Status: Acute Comment: resolving, Continue IVF's, avoid nephrotoxic meds and limit contrast exposure (8) CKD (chronic kidney disease) stage 3, GFR 30-59 ml/min Code(s): N18.3 - CHRONIC KIDNEY DISEASE, STAGE 3 (MODERATE) Status: Chronic (9) Cardiomyopathy Code(s): I42.9 - CARDIOMYOPATHY, UNSPECIFIED Status: Acute Comment: EF 25-30 % range, Lasix 20mg IV q12h (10) Elevated troponin I level Code(s): R74.8 - ABNORMAL LEVELS OF OTHER SERUM ENZYMES Status: Acute Comment: Likely due to demand ischemic state in context of septic shock - Plan merrill catheter, continue antibiotics, PT/OT, social group worker, speech therapy, respiratory therapy, DVT proph w/SCDs Continue supportive measures -: Continue Rocephin 2gm IV daily -: Limit psychotropic medications -: GI consulted for transaminitis per family requests, appears to be resolving -: AM lab: CMP * .
--- NOTE | 2017-11-22 21:16 | CON ---
DATE OF CONSULTATION: 11/22/2017 REASON FOR CONSULTATION: Elevated liver function tests. CONSULTING PHYSICIAN: Dr. Dedrick Townsend. HISTORY OF PRESENT ILLNESS: The patient is a 77-year-old female with past medical history of diabete s, breast cancer, status post right mastectomy ventricular tachycardia, status post pacemaker placeme nt, coronary artery disease with an ejection fraction of 35% and chronic pulmonary disease initially presenting with urosepsis and hypotension. The patient is unable to contribute any meaningful histor y, so all information obtained through chart review. The patient was admitted to the hospital on initially with complaints of altered mental status. She was initially evaluated at an [facility] facility and found to have urinary tract infection primarily due to dysuria that she had been exper iencing 4 days prior to admission. Shortly after admission, she experienced profound hypotension, fe lt to be secondary to urosepsis that requires administration of IV fluids, although she was never j luis cara on pressor support; however, also shortly after admission, she experienced respiratory distress w as ultimately placed on mechanical ventilation. Over the course of the last few days, she has been r ecovering slowly with improvement of her respiratory status to the point where she was ultimately ext ubated; however, she continues to have an altered mental status with CT of the brain negative for str uctural abnormalities. Also noted on her labs on admission, she had normal LFTs, but after the episo de of hypotension was noted to have a significant elevation in her liver function tests. Over the la st few days, her liver function tests have been downtrending with the current conservative management of care. Currently, the patient is lying comfortably in bed in no acute distress, but unable to contribute any meaningful answers to interview; however, she is able to ask simple questions and has been able to p are back phrases that she has heard when discussions were made directly with her. REVIEW OF SYSTEMS: A 10-category review of systems could not be obtained due to the patient's altere d mental status. PAST MEDICAL HISTORY: As per HPI. PAST SURGICAL HISTORY: Pacemaker placement, right mastectomy, sinus surgery, total knee replacement. FAMILY HISTORY: No history of GI malignancy per chart review. SOCIAL HISTORY: Patient on admission denied any tobacco, alcohol, or illicit drug use. OUTPATIENT MEDICATIONS: Reviewed. INPATIENT MEDICATIONS: Reviewed. ALLERGIES: CODEINE, ORANGE JUICE, and VERAPAMIL. PHYSICAL EXAMINATION: VITAL SIGNS: Temperature 98.6, pulse 110, blood pressure 148/74, respiratory rate 23, satting 100% o n 4 liters nasal cannula. GENERAL: Patient is lying in bed in no acute distress. She is alert, but not oriented to self, plac e, or situation. NECK: Supple. No JVD noted. CARDIOVASCULAR: Regular rate and rhythm with no discernible murmurs, gallops, or rubs. RESPIRATORY: Clear to auscultation bilaterally with no discernible wheezes or rales. ABDOMEN: Normoactive bowel sounds, soft, nontender, nondistended, obese abdomen. EXTREMITIES: No cyanosis, clubbing, or edema. LABORATORY DATA: CBC with a white blood cell count of 6.1, hemoglobin of 11.2, hematocrit 33.6, plat elets 154. INR 1.3. Chemistry with sodium of 149, potassium 3.5, chloride 114, CO2 of 26, BUN 20, c reatinine 0.73, glucose 239. AST 66, ALT 504, alkaline phosphatase 64, total bilirubin 0.6, magnesiu m 1.6. IMAGING DATA: CT head obtained on 11/21/2017 showed no midline shift or any other mass effect. Ther e is no evidence of acute intracranial hemorrhage, large cortical infarct, obstructive hydrocephalus, or extra-axial fluid collection. Chest x-ray obtained on 11/22/2017 showed mild cardiomegaly with v ascular congestion with increased linear and interstitial parenchymal changes and small bilateral ple ural effusions. ASSESSMENT AND PLAN: Patient is a 77-year-old female with past medical history of diabetes, breast c ancer status post mastectomy, ventricular tachycardia, status post pacemaker placement, coronary estefany ry disease with congestive heart failure, and ejection fraction of 35%, and chronic pulmonary disease presenting with elevated LFTs/shock liver. Elevated liver function tests/shock liver: The patient initially presented with acute altered mental status as well as history of dysuria with a urinary tract infection diagnosed at an outside institution. Shortly after admission, she experienc ed profound hypotension that was felt to be secondary to urosepsis and from her urinary tract infecti on. She was ultimately resuscitated with IV fluids, but did not require pressor support, but she did require mechanical intubation due to respiratory distress. When trending her liver function test, t hey were normal on admission, but correlate well with the significant hypotension and a significant r ise in AST, ALT, and alkaline phosphatase during that time. Over the last few days, her LFTs have co ntinued to downtrend with stabilization of her blood pressure, indicating that the most likely source of her shock liver or elevated liver function test was due to hypotension and poor perfusion on the liver parenchyma. She is currently on third-generation cephalosporin, which could potentially genera te elevated LFTs, but usually does so in a cholestatic pattern with elevation in alkaline phosphatase and/or total bilirubin making this less likely to be a source of her current elevated LFTs. RECOMMENDATIONS: 1. Would continue to trend LFTs daily along with INR for assessment of liver function. 2. Would avoid any potential hepatotoxins. 3. Would continue to maintain normotensive blood pressure and avoid any episodes of hypotension, whi ch could further contribute to liver ischemia. 4. Continue to monitor clinically for improvement in her metabolic encephalopathy. Would avoid any potentially mind altering substances including benzodiazepines. Would also continue to attempt to re orient the patient daily with standard delirium per protocol. We will continue to follow. Please call with any questions.
[2017-11-23] MEDS: Insulin Regular 300 UNITS/3 ML VIAL SC PRN ×6 (00:17→20:55)
[2017-11-23] MEDS: Metoprolol Tartrate 5 MG/5 ML VIAL IVP SCH ×4 (02:20→20:54)
[2017-11-23 04:47] LABS: ALT (SGPT) 324 U/L (8-55); AST (SGOT) 33 U/L (5-34); Albumin 3.1 g/dL (3.4-4.8); Alkaline Phosphatase 54 U/L (40-150); Anion Gap 12 mmol/L (10-20); BUN (Urea Nitrogen) 22 mg/dL (9.8-20.1); Bilirubin, Total 0.5 mg/dL (0.2-1.2); Calc. Creatinine Clearance 117 mL/min (70-130); Calcium 10.1 mg/dL (7.8-10.44); Carbon Dioxide 27 mmol/L (23-31); Chloride 116 mmol/L (98-107); Estimated GFR-MDRD 87; Globulin 3.4 g/dL (2.4-3.5); Glucose 191 mg/dL (83-110); Potassium 3.5 mmol/L (3.5-5.1); Protein, Total 6.5 g/dL (6.0-8.3); Sodium 151 mmol/L (136-145)
[2017-11-23] MEDS: Potassium Chloride 40 MEQ in Premix Bag 1 BAG IVPB PRN (05:06)
[2017-11-23] MEDS: Enalaprilat Dihydrate 1.25 MG/ML VIAL SLOW IVP SCH ×3 (05:09→17:47)
[2017-11-23] MEDS: Furosemide 20 MG/2 ML VIAL SLOW IVP SCH (05:21)
[2017-11-23] MEDS: Budesonide 0.5 MG/2 ML NEB NEB SCH (06:11)
[2017-11-23 08:42] LABS: INR-International Normal Ratio 1.3; Prothrombin Time 16.4 SEC (12.0-14.7)
[2017-11-23] MEDS: Levothyroxine 100 MCG SDV IVP SCH (08:51)
[2017-11-23] MEDS: Insulin Detemir 100 UNITS/ML 40 UNITS in Pre-Filled Syringe 1 EACH SC SCH (08:54)
[2017-11-23] MEDS: Enoxaparin Sodium 40 MG/0.4 ML SYRINGE SC SCH (08:54)
[2017-11-23] MEDS: cefTRIAXone\\ROCEPHIN 2 GM in Sodium Chloride 0.9% 100 ML IVPB SCH (08:55)
[2017-11-23] MEDS: Famotidine 40 MG/4 ML VIAL SLOW IVP SCH (09:23)
[2017-11-23] MEDS: Sodium Chloride 0.45% 1,000 ML IV SCH (09:24)
--- NOTE | 2017-11-23 09:31 | RAD ---
PORTABLE CHEST: Date: 11/23/17 PROVIDED CLINICAL HISTORY: Respiratory insufficiency. FINDINGS/IMPRESSION: Comparison with 11/22/17. Significant interval change with respect to the prior examination is not apparent. Mild limitations d ue to exclusion of the inferior right costophrenic angle. POS: [facility]
[2017-11-23] MEDS: Dextrose 5% in Water 1,000 ML IV SCH (09:55)
--- NOTE | 2017-11-23 10:42 | PRG ---
DATE OF SERVICE: 11/23/2017 SUBJECTIVE: Today, the patient is somewhat conversant. Her answers are not always appropriate, but she is definitely more alert than she has been. OBJECTIVE: VITAL SIGNS: Temperature is 98.1, pulse 97, blood pressure 159/96, O2 sat 100%. A 24-hour intake 28 80, output 3520. Weight 219 pounds. HEENT: Pupils react. Sclerae icteric. Oropharynx clear. NECK: No JVD. LUNGS: Clear bilaterally. CARDIOVASCULAR: S1 and S2 regular, without audible murmur, rub or gallop. ABDOMEN: Soft and nontender. EXTREMITIES: No clubbing, cyanosis, but she has trace edema. IMAGING: Her chest x-ray showed no significant findings other than cardiomegaly and the pacemaker. LABORATORY DATA: White blood cell count 6.1, hematocrit 33.6, platelet count 154. INR 1.3. Sodium 151, potassium 3.5, chloride 116, CO2 of 27, BUN 22, creatinine 0.6, glucose 191, AST 33, ALT 324. ASSESSMENT: 1. Urosepsis, which is resolving. 2. Encephalopathy, improved. 3. Shock liver, which is resolving. 4. Low ejection fraction. 5. Developing hypernatremia secondary to diuresis. 6. History of ventricular tachycardia. PLAN: 1. Up in a chair. 2. Reevaluate with speech to see if she can eat. 3. Start low dose D5W and hold diuretics today to see if we can improve the sodium. 4. Continue ICU care for the time being.
[2017-11-23] MEDS: Digoxin 0.5 MG/2 ML AMP SLOW IVP SCH (11:05)
--- NOTE | 2017-11-23 15:02 | ULT ---
RIGHT UPPER QUADRANT ULTASOUND: Date: 11/23/17 PROVIDED CLINICAL HISTORY: Elevated LFTs. FINDINGS: The liver demonstrates no evidence for mass or intrahepatic biliary ductal dilatation. No peripheral nodularity is seen to the hepatic contour to suggest cirrhosis. Right-sided pleural effusion is parti ally visualized. The common duct is not dilated. Gallbladder demonstrates no stones, wall thickening, or pericholecystic fluid. Right kidney demonstrates no hydronephrosis or mass. The spleen and IVC ar e largely obscured. IMPRESSION: Right-sided pleural effusion. Otherwise unremarkable right upper quadrant ultrasound with limitations as above. POS: [facility]
--- NOTE | 2017-11-23 16:18 | PDOC.PN ---
- Subjective Encounter Start Date: 11/23/17 Encounter Start Time: 14:00 Patient is seen today,lethargic, No other Concrerns noted. Discussed with Family about hand sutures can be removed as they are skin sutures and good healing noted. - Objective Resuscitation Status: Resuscitation Status FULL:Full Resuscitation MAR Reviewed: Yes Vital Signs & Weight: Vital Signs (12 hours) Temp Pulse Pulse Pulse Resp BP BP 11/23/17 12:07 166/82 H 11/23/17 12:00 98.7 F 11/23/17 11:05 97 11/23/17 09:45 98 98 148/100 H 11/23/17 08:00 98.7 F 88 20 11/23/17 06:09 81 25 H 11/23/17 05:09 146/93 H BP Pulse Ox Pulse Ox 11/23/17 12:07 11/23/17 12:00 11/23/17 11:05 11/23/17 09:45 138/86 93 L 11/23/17 08:00 100 11/23/17 06:09 94 L 11/23/17 05:09 Weight Admit Weight 220 lb 0.341 oz Weight 219 lb 5 oz Most Recent Monitor Data Heart Rate from ECG 83 NIBP 146/74 NIBP BP-Mean 99 Respiration from ECG 18 SpO2 100 I&O: 11/22/17 11/23/17 11/24/17 06:59 06:59 06:59 Intake Total 2880 473 Output Total [address] [facility] -3715 -640 -702 Result Diagrams: 11/22/17 05:14 11/23/17 04:25 Additional Labs: Accuchecks 11/23/17 11/23/17 11/23/17 13:21 08:30 04:44 POC Glucose 244 H 189 H 167 H 11/23/17 11/22/17 11/22/17 00:16 21:03 17:42 POC Glucose 191 H 180 H 230 H Radiology Reviewed by me: Yes Phys Exam - Physical Examination HEENT: PERRLA Neck: no nodes, no JVD Respiratory: no wheezing, no rales Cardiovascular: RRR, no significant murmur Gastrointestinal: soft, non-tender Musculoskeletal: no edema, pulses present Neurological: non-focal, normal sensation Lymphatic: no nodes Psychiatric: normal affect Dx/Plan (1) SULEMAN (acute kidney injury) Code(s): N17.9 - ACUTE KIDNEY FAILURE, UNSPECIFIED Status: Acute Comment: resolving, Continue IVF's, avoid nephrotoxic meds and limit contrast exposure (2) Acute hypernatremia Code(s): E87.0 - HYPEROSMOLALITY AND HYPERNATREMIA Status: Acute Comment: changed to D5W by Dr. Palm. will monitor [place]. pt has Free water deficitis (3) Acute metabolic encephalopathy Code(s): G93.41 - METABOLIC ENCEPHALOPATHY Status: Acute Comment: Likely multifactorial including metabolic component, serial monitoring, CT brain negative, ? withdrawal symptoms, minimize psychotropic meds (4) Acute respiratory failure with hypoxia Code(s): J96.01 - ACUTE RESPIRATORY FAILURE WITH HYPOXIA Status: Acute Comment: Extubated 11/21/17, Pulmonology following, supplemental O2 via NC (5) Septic shock due to Escherichia coli Code(s): A41.51 - SEPSIS DUE TO ESCHERICHIA COLI [E. COLI]; R65.21 - SEVERE SEPSIS WITH SEPTIC SHOCK Status: Acute Comment: Sepsis resolving, Continue Rocephin, sepsis protocol, low-volume E. coli on Ucx, await final blood cx results (6) Shock liver Code(s): K72.00 - ACUTE AND SUBACUTE HEPATIC FAILURE WITHOUT COMA Status: Acute Comment: Improved, Suspected given septic shock, serial monitoring, appears to be resolving (7) DM hyperosmolarity type II, uncontrolled Code(s): E11.00 - TYPE 2 DIAB W HYPROSM W/O NONKET HYPRGLY-HYPROS COMA ([facility]); E11.65 - TYPE 2 DIABETES MELLITUS WITH HYPERGLYCEMIA Status: Chronic Comment : A1C 7.2, ISS, Detemir 40u sc qam, serial accuchecks - Plan cont current plan of care, plan discussed w/ family, PT/OT, geriatric social worker, incentive spirometry, out of bed/ambulate, DVT proph w/lovenox * . - Discharge Day Encounter end time: 14:35 Review of Systems - Review of Systems Other: Unable to get ROS, as patient is very lethhargic. - Medications/Allergies Allergies/Adverse Reactions: Allergies Allergy/AdvReac Type Severity Reaction Status Date / Time codeine Allergy Emesis Verified 11/18/17 02:23 orange juice Allergy Nausea Verified 11/18/17 02:23 verapamil [Verapamil] Allergy Verified 10/01/13 07:04 Medications: Current Medications Acetaminophen (Tylenol) 325 mg PO Q6H PRN PRN Reason: Headache/Fever or Pain Albuterol/Ipratropium (Duoneb) 3 ml NEB [id number] [facility] Last Admin: 11/23/17 13:33 Dose: Not Given Budesonide (Pulmicort Neb Solution) 0.5 mg NEB DAILY-RT [facility] Last Admin: 11/23/17 06:11 Dose: 0.5 mg Dextrose/Water (Dextrose 50%) 25 gm SLOW IVP PRN PRN PRN Reason: Hypoglycemia Digoxin (Lanoxin) 0.125 mg SLOW IVP DAILY [facility] Last Admin: 11/23/17 11:05 Dose: 0.125 mg Enalaprilat (Vasotec) 1.25 mg SLOW IVP Q6HR [facility] Last Admin: 11/23/17 12:07 Dose: 1.25 mg Enoxaparin Sodium (Lovenox) 40 mg SC 0900 [facility] Last Admin: 11/23/17 08:54 Dose: 40 mg Famotidine (Pepcid) 20 mg SLOW IVP Q12HR [facility] Furosemide (Lasix) 20 mg SLOW IVP 0600,1400 [facility] Last Admin: 11/23/17 05:21 Dose: 20 mg Glucagon (Glucagon) 1 mg IM PRN PRN PRN Reason: Hypoglycemia Hydralazine HCl (Apresoline) 20 mg SLOW IVP Q6H PRN PRN Reason: SBP > 180 Dextrose/Water (D5w) 1,000 mls @ 0 mls/hr IV .Q0M PRN; As Directed PRN Reason: Hypoglycemia Ceftriaxone Sodium 2 gm/ (Sodium Chloride) 100 mls @ 200 mls/hr IVPB 0900 [facility] Last Admin: 11/23/17 08:55 Dose: 100 mls Potassium Chloride 40 meq/ (Sodium Chloride) 270 mls @ 135 mls/hr IVPB ASDIR PRN PRN Reason: FOR SERUM K+ 2.5 - 3.5 Potassium Chloride 40 meq/ (Device) 100 mls @ 50 mls/hr IVPB ASDIR PRN PRN Reason: FOR SERUM K+ 2.5 - 3.5 Last Admin: 11/23/17 05:06 Dose: 100 mls Magnesium Sulfate 1 gm/ Sodium (Chloride) 102 mls @ 102 mls/hr IV PRN PRN PRN Reason: MAG LEVEL 1.4 - 2.0 Last Admin: 11/23/17 06:25 Dose: 102 mls Magnesium Sulfate 2 gm/ Device 100 mls @ 100 mls/hr IVPB ASDIR PRN PRN Reason: MAGNESIUM < 1.4 Potassium Phosphate 9 mmol/ (Sodium Chloride) 103 mls @ 25.75 mls/hr IVPB ASDIR PRN PRN Reason: Phosphate 1.0-1.8 Potassium Phosphate 12 mmol/ (Sodium Chloride) 254 mls @ 63.5 mls/hr IV ASDIR PRN PRN Reason: Serum phosphate 0.5-0.9 Potassium Phosphate 15 mmol/ (Sodium Chloride) 255 mls @ 63.75 mls/hr IV ASDIR PRN PRN Reason: Serum Phos < 0.5 Insulin Detemir 40 units/ (Miscellaneous Medication) 0.4 mls @ 0 mls/hr SC QAM [facility] Last Admin: 11/23/17 08:54 Dose: 0.4 mls Sodium Chloride (1/2 Normal Saline) 1,000 mls @ 80 mls/hr IV .[id number] [facility] Last Admin: 11/23/17 09:24 Dose: Not Given Dextrose/Water (D5w) 1,000 mls @ 50 mls/hr IV .Q20H [facility] Last Admin: 11/23/17 09:55 Dose: 1,000 mls Insulin Human Regular (Humulin R) 0 units SC .AGGRESSIVE SLIDING PRN PRN Reason: Aggressive Sliding Scale Last Admin: 11/23/17 13:34 Dose: 6 unit Isosorbide Mononitrate (Imdur Er) 30 mg PO DAILY [facility] Last Admin: 11/23/17 09:57 Dose: Not Given Levothyroxine Sodium (Synthroid) 100 mcg IVP DAILY [facility] Last Admin: 11/23/17 08:51 Dose: 100 mcg Magnesium Oxide (Magnesium Oxide) 400 mg PO BIDPRN PRN PRN Reason: FOR SERUM MAG 1.4 - 2.0 Magnesium Oxide (Magnesium Oxide) 800 mg PO PRN PRN PRN Reason: FOR SERUM MAG < 1.4 Metoprolol Tartrate (Lopressor) 5 mg IVP 0300,0900,1500,2100 [facility] Last Admin: 11/23/17 15:11 Dose: 5 mg Miscellaneous Medication (Phos-Nak) 1 pkt PO TIDPRN PRN PRN Reason: FOR PHOS LEVEL 1.0 - 1.8 Miscellaneous Medication (Phos-Nak) 2 pkt PO TIDPRN PRN PRN Reason: FOR PHOS LEVEL 0.5 - 1.0 Nitroglycerin (Nitrostat) 0.4 mg SL Q5MIN PRN PRN Reason: Chest Pain Discontinue Previous Narcotic Pain Medications And Benzodiazepines 1 each FS .ONE [facility] Stop: 12/18/17 11:16 Ccu Electrolyte (Replacement Protocol) 0 each FS PRN PRN PRN Reason: FOR ELECTROLYTE REPLACEMENT Potassium Chloride (K-Dur) 40 meq PO ASDIR PRN PRN Reason: FOR SERUM K+ 2.5 - 3.5 Potassium Chloride (Klor-Con) 40 meq PER TUBE ASDIR PRN PRN Reason: FOR SERUM K+ 2.5-3.5 Sodium Chloride (Flush - Normal Saline) 10 ml IVF Q12HR [facility] Last Admin: 11/23/17 08:58 Dose: 10 ml Sodium Chloride (Flush - Normal Saline) 10 ml IVF PRN PRN PRN Reason: Saline Flush Last Admin: 11/23/17 09:06 Dose: 10 ml
--- NOTE | 2017-11-23 17:51 | PRG ---
DATE OF SERVICE: 11/23/2017 REASON FOR CONSULTATION: Elevated liver function tests. SUBJECTIVE: No events or problems overnight. This morning, the patient seems to be more alert and o riented and able to answer simple questions and responded in simple sentences; however, she does also continue to have some mild altered sensorium with perseverance and certain phrases of words. Per [facility] staff, no nausea or vomiting, abdominal pain or pain in general, jaundice or GI bleeding noted. I met with family this morning as well and explained to them her current clinical situation and per t he patient's daughter and , there was some question about underlying mental dysfunction prior to this admission with the patient forgetting certain medications as well as getting lost driving nadeen e on her own she had taken for many years prior. Per the patient's daughter (who is a gastroenterolo gist in [place]), there may be some concern for underlying liver disease contributing to encephalopa thy and her current clinical situation. OBJECTIVE: VITAL SIGNS: Temperature 98.6, heart rate 77, blood pressure 155/82, respiratory rate 24 and satting 100% on 3 liters on room air. GENERAL: The patient is lying in a chair at bedside in, no acute distress, able to answer simple que stions and alert, but not oriented to self, place, date or situation. CARDIOVASCULAR: Regular rate and rhythm with no discernible murmurs, gallops or rubs. RESPIRATORY: Clear to auscultation bilaterally with no discernible wheezes or rales. ABDOMEN: Normoactive bowel sounds, soft, nontender and nondistended. Obese abdomen. EXTREMITIES: No cyanosis, clubbing or edema. LABORATORY DATA: Chemistry with a sodium of 151, potassium 3.5, chloride 116, CO2 of 27, BUN 22, cre atinine 0.66 and glucose 191. INR 1.3, AST 33, ALT 324, alkaline phosphatase 54 and total bilirubin 0.5. IMAGING DATA: Right upper quadrant ultrasound obtained on 11/23/2017 showed no mass or common bile d uct dilatation, no peripheral nodularity to the contour of the liver to suggest cirrhosis and there w as no cholelithiasis or cholecystitis seen on that examination. ASSESSMENT AND PLAN: The patient is a 77-year-old female with past medical history of diabetes, cornel[address] [facility] cancer, status post mastectomy, ventricular tachycardia, status post pacemaker placement, coronary artery disease with congestive heart failure and an ejection fraction of 35% and chronic pulmonary a nd chronic obstructive pulmonary disease, presenting with elevated liver function tests/shock liver. Elevated liver function tests/shock liver. The patient initially presented with acute altered mental status as well as a history of dysuria with a diagnosis of urosepsis made shortly after admission. Also, shortly after admission, she experienced profound hypotension, felt to be secondary to urosepsi s, which I think contributed to the significant elevation in her liver function tests since maintaini ng normotensive pressures and resuscitation with IV fluids. Her liver function tests have been downt rending ever since with all her liver function tests normal except for an elevated ALT at this point. However, per patient's daughter and , there was some question about underlying liver disease further contributing to the elevation in liver function tests and/or metabolic encephalopathy. Righ t upper quadrant ultrasound performed today did not show any cirrhotic morphology and when coupled wi th abnormal platelet count, it is less likely to be indicative of cirrhosis of the liver which could then further contribute to something like hepatic encephalopathy. At this point, her metabolic encep halopathy may be due to either ICU delirium or the previous administration of sedation medications co ntributing to altered mental status. Lastly, she is also on a third generation cephalosporin, which could potentially generate elevated liver function tests, but primarily does so with an elevation in alkaline phosphatase, or total bilirubin which is not currently seen on her labs. RECOMMENDATIONS: 1. We will continue to trend LFTs daily along with INR for assessment of liver function. 2. Would avoid any potential hepatotoxins. 3. Would continue to maintain normotensive blood pressures and avoid any episodes of hypotension, wh ich could further contribute to liver ischemia/shock liver. 4. Continue to monitor clinically for improvement in her metabolic encephalopathy. Would avoid any potentially mind altering substances including sedation medications or benzodiazepines. We will continue to follow. Please call with any questions.
[2017-11-23] MEDS: Spironolactone 25 MG TAB PO SCH (18:06)
--- NOTE | 2017-11-23 18:06 | PDOC.CTH ---
Cardiology Progress Note - Subjective She remains confused. Family at bedside. - Objective Vital Signs Temp Pulse Pulse Pulse Resp BP BP 11/23/17 17:47 153/85 H 11/23/17 16:00 98.6 F 11/23/17 12:07 166/82 H 11/23/17 12:00 98.7 F 11/23/17 11:05 97 11/23/17 09:45 98 98 148/100 H 11/23/17 08:00 98.7 F 88 20 11/23/17 06:09 81 25 H BP Pulse Ox Pulse Ox 11/23/17 17:47 11/23/17 16:00 11/23/17 12:07 11/23/17 12:00 11/23/17 11:05 11/23/17 09:45 138/86 93 L 11/23/17 08:00 100 11/23/17 06:09 94 L Admit Weight 220 lb 0.341 oz Weight 219 lb 5 oz 11/22/17 11/23/17 11/24/17 06:59 06:59 06:59 Intake Total 2880 888 Output Total 3710 3520 1350 Balance -2187 -640 -462 - Physical Examination General/Neuro: NAD Neck: no JVD present Lungs: CTA, unlabored respirations Heart: RRR Abdomen: NT/ND Extremities: + edema B (1+) - Telemetry Telemetry Rhythm: NSR - Labs Result Diagrams: 11/22/17 05:14 11/23/17 04:25 Troponin/CKMB Troponin I 1.794 ng/mL (< 0.028) H* 11/18/17 05:32 - Assessment/Plan 1. Cardiomyopathy, EF 25-30%. 2. Respiratory failure 3. Possible pneumonia. 4. AICD in place. 5. AMS PLAN: - More fluid overload today. - Will stop IV fluids and will start to diurese. - Will follow.
[2017-11-23] MEDS: Famotidine/PF 20 mg/2ml Vial SLOW IVP SCH (20:51)
[2017-11-24] MEDS: Enalaprilat Dihydrate 1.25 MG/ML VIAL SLOW IVP SCH ×5 (00:34→23:57)
[2017-11-24] MEDS: Insulin Regular 300 UNITS/3 ML VIAL SC PRN ×7 (00:34→23:52)
[2017-11-24] MEDS: Metoprolol Tartrate 5 MG/5 ML VIAL IVP SCH ×4 (03:12→20:34)
[2017-11-24] MEDS: Dextrose 5% in Water 1,000 ML IV SCH ×2 (03:35→23:56)
[2017-11-24 05:36] LABS: Anion Gap 11 mmol/L (10-20); BUN (Urea Nitrogen) 21 mg/dL (9.8-20.1); Calc. Creatinine Clearance 103 mL/min (70-130); Calcium 10.5 mg/dL (7.8-10.44); Carbon Dioxide 30 mmol/L (23-31); Chloride 114 mmol/L (98-107); Estimated GFR-MDRD 78; Glucose 165 mg/dL (83-110); Magnesium 2.1 mg/dL (1.6-2.6); Potassium 3.6 mmol/L (3.5-5.1); Sodium 151 mmol/L (136-145)
[2017-11-24] MEDS ORDERED: Furosemide 40 MG/4 ML VIAL SLOW IVP SCH (06:00)
[2017-11-24] MEDS: Digoxin 0.5 MG/2 ML AMP SLOW IVP SCH (07:27)
[2017-11-24] MEDS: Levothyroxine 100 MCG SDV IVP SCH (07:28)
[2017-11-24] MEDS: Enoxaparin Sodium 40 MG/0.4 ML SYRINGE SC SCH (07:28)
[2017-11-24] MEDS: Famotidine/PF 20 mg/2ml Vial SLOW IVP SCH ×2 (07:28→20:33)
[2017-11-24] MEDS: Budesonide 0.5 MG/2 ML NEB NEB SCH (08:59)
--- NOTE | 2017-11-24 09:06 | PRG ---
DATE OF SERVICE: 11/24/2017 Thirty five minutes of critical care time. SUBJECTIVE: The patient remains in the CCU. She is more talkative than she was yesterday, but not completely oriented. PHYSICAL EXAMINATION: VITAL SIGNS: Temperature 98.5, pulse 95, blood pressure 148/74. A 24 hour intake 1665, output 1975. HEENT: Pupils react. Sclerae anicteric. Oropharynx clear. NECK: No JVD. LUNGS: Clear to auscultation anteriorly. CARDIAC: S1 and S2 regular. ABDOMEN: Soft, nontender. EXTREMITIES: No edema. LABORATORY DATA: Sodium 151, potassium 3.6, chloride 114, CO2 30, BUN 21, creatinine 0.7, glucose 165, calcium is 10.5. ASSESSMENT: 1. Status post acute respiratory failure related sepsis from urinary tract infection. 2. Metabolic encephalopathy which is barely slowly improving. 3. Hypernatremia, which is secondary to aggressive diuresis. RECOMMENDATION: I would hold diuresis today because of her hypernatremia. We will recheck her labs tomorrow and consider restarting diuresis if her sodium level is appropriate. She is to continue with low dose D5W for the sole purpose of giving her free water. She is getting a liquid diet. She needs to remain in the ICU for the time being. ANDRE
[2017-11-24] MEDS: cefTRIAXone\\ROCEPHIN 2 GM in Sodium Chloride 0.9% 100 ML IVPB SCH (09:53)
[2017-11-24] MEDS: Insulin Detemir 100 UNITS/ML 40 UNITS in Pre-Filled Syringe 1 EACH SC SCH (09:53)
--- NOTE | 2017-11-24 17:07 | PDOC.CTH ---
Cardiology Progress Note - Subjective Remains confused. No new isssues. - Objective Vital Signs Temp Pulse Resp BP Pulse Ox 11/24/17 15:00 98.0 F 11/24/17 13:56 78 16 11/24/17 11:52 99.6 F 11/24/17 11:36 145/75 H 11/24/17 09:02 100 11/24/17 08:59 88 16 11/24/17 08:00 98.6 F 88 16 98 11/24/17 07:27 88 11/24/17 07:00 98.6 F 11/24/17 05:11 147/73 H Admit Weight 220 lb 0.341 oz Weight 219 lb 5 oz 11/23/17 11/24/17 11/25/17 06:59 06:59 06:59 Intake Total 2880 1665 600 Output Total 3520 1975 2120 Balance -986 -800 -7789 - Physical Examination General/Neuro: NAD Neck: no JVD present Lungs: unlabored respirations Heart: RRR Abdomen: NT/ND Extremities: + edema B (1+) - Telemetry Telemetry Rhythm: NSR - Labs Result Diagrams: 11/22/17 05:14 11/24/17 05:05 Troponin/CKMB Troponin I 1.794 ng/mL (< 0.028) H* 11/18/17 05:32 - Assessment/Plan 1. Cardiomyopathy, EF 25-30%. 2. Respiratory failure 3. Possible pneumonia. 4. AICD in place. 5. AMS PLAN: - Agree with holding diuresis due to elevated sodium. - Continue to monitor.
--- NOTE | 2017-11-24 19:39 | PDOC.PN ---
- Subjective Encounter Start Date: 11/24/17 Encounter Start Time: 19:30 Subjective: f/u for encephalopathy after sepsis with UTI and s/p acute resp failure -: Remains confused with mild improvement overall. Elevated Na+ noted -: with dehydration tx with D5W. - Objective Resuscitation Status: Resuscitation Status FULL:Full Resuscitation MAR Reviewed: Yes Vital Signs & Weight: Vital Signs (12 hours) Temp Pulse Resp BP Pulse Ox 11/24/17 19:14 98.3 F 81 19 100 11/24/17 19:06 83 24 H 100 11/24/17 17:59 164/84 H 11/24/17 15:00 98.0 F 11/24/17 13:56 78 16 11/24/17 11:52 99.6 F 11/24/17 11:36 145/75 H 11/24/17 09:02 100 11/24/17 08:59 88 16 11/24/17 08:00 98.6 F 88 16 98 Weight Admit Weight 220 lb 0.341 oz Weight 219 lb 5 oz Most Recent Monitor Data Heart Rate from ECG 80 NIBP 153/88 NIBP BP-Mean 105 Respiration from ECG 21 SpO2 99 I&O: 11/23/17 11/24/17 11/25/17 06:59 06:59 06:59 Intake Total 2880 1665 1629 Output Total 3520 1975 2230 [facility] -409 -201 -190 Result Diagrams: 11/22/17 05:14 11/24/17 05:05 Additional Labs: Accuchecks 11/24/17 11/24/17 11/24/17 15:10 11:39 07:39 POC Glucose 263 H 270 H 179 H 11/24/17 11/24/17 11/23/17 04:31 00:34 19:49 POC Glucose 161 H 171 H 229 H 11/23/17 16:49 POC Glucose 229 H Microbiology 11/17/17 23:43 Urine Straight Catheter Urine Culture - Final Escherichia coli 11/17/17 23:15 Nasal swab Influenza Types A,B Direct EIA - Final 11/18/17 04:13 Venous blood - Right Hand Blood Culture - Preliminary Specimen has been received and culture in progress. No Growth to date. 11/18/17 04:13 Venous blood - Right Hand Blood Culture - Preliminary NO GROWTH AT 48 HOURS 11/18/17 03:42 Venous blood - Left Hand Blood Culture - Preliminary Specimen has been received and culture in progress. No Growth to date. 11/18/17 03:42 Venous blood - Left Hand Blood Culture - Preliminary NO GROWTH AT 48 HOURS 11/17/17 23:43 Urine Straight Catheter Urine Culture - Preliminary Escherichia coli 11/17/17 23:28 Venous blood - Left Hand Blood Culture - Preliminary Specimen has been received and culture in progress. No Growth to date. 11/17/17 23:28 Venous blood - Left Hand Blood Culture - Preliminary NO GROWTH AT 48 HOURS 11/17/17 23:18 Venous blood - Left Hand Blood Culture - Preliminary Specimen has been received and culture in progress. No Growth to date. 11/17/17 23:18 Venous blood - Left Hand Blood Culture - Preliminary NO GROWTH AT 48 HOURS Laboratory Tests 11/17/17 11/17/17 11/17/17 23:18 23:18 23:28 WBC Sodium Hemoglobin A1c Lactic Acid 4.4 H* Calcium Magnesium Iron TIBC % Saturation Ferritin Total Bilirubin 0.6 AST 31 ALT 24 Alkaline Phosphatase Troponin I Free T4 Free T3 TSH 3rd Generation Digoxin B-Hydroxybutyrate 0.14 Hepatitis A IgM Ab Hep Bs Antigen Hep B Core IgM Ab Hepatitis C Antibody 11/18/17 11/18/17 11/18/17 02:57 04:13 04:13 WBC Sodium Hemoglobin A1c Lactic Acid 3.3 H Calcium Magnesium Iron TIBC % Saturation Ferritin Total Bilirubin 0.4 AST 28 ALT 23 Alkaline Phosphatase Troponin I 1.652 H* Free T4 Free T3 TSH 3rd Generation Digoxin B-Hydroxybutyrate Hepatitis A IgM Ab Hep Bs Antigen Hep B Core IgM Ab Hepatitis C Antibody 11/18/17 11/18/17 11/18/17 04:13 04:13 04:13 WBC 12.4 H Sodium Hemoglobin A1c 7.2 H Lactic Acid Calcium Magnesium Iron TIBC % Saturation Ferritin Total Bilirubin AST ALT Alkaline Phosphatase Troponin I Free T4 Free T3 TSH 3rd Generation Digoxin 0.29 L B-Hydroxybutyrate Hepatitis A IgM Ab Hep Bs Antigen Hep B Core IgM Ab Hepatitis C Antibody 11/18/17 11/18/17 11/18/17 04:13 04:13 05:32 WBC Sodium Hemoglobin A1c Lactic Acid Calcium Magnesium Iron TIBC % Saturation Ferritin Total Bilirubin AST ALT Alkaline Phosphatase Troponin I 1.794 H* Free T4 1.14 Free T3 1.86 TSH 3rd Generation 0.0030 L Digoxin B-Hydroxybutyrate Hepatitis A IgM Ab Hep Bs Antigen Hep B Core IgM Ab Hepatitis C Antibody 11/19/17 11/19/17 11/20/17 05:25 08:34 04:28 WBC Sodium Hemoglobin A1c Lactic Acid Calcium Magnesium Iron TIBC % Saturation Ferritin Total Bilirubin 0.3 AST 627 H 511 H ALT 906 H 1074 H Alkaline Phosphatase 67 Troponin I Free T4 Free T3 TSH 3rd Generation Digoxin B-Hydroxybutyrate Hepatitis A IgM Ab Non-Reactive Hep Bs Antigen Non-Reactive Hep B Core IgM Ab Non-Reactive Hepatitis C Antibody Non-Reactive 11/21/17 11/21/17 11/21/17 03:35 03:35 03:35 WBC Sodium 144 Hemoglobin A1c Lactic Acid Calcium Magnesium Iron 35 L 34 L TIBC 169 L % Saturation 20 Ferritin 754.17 H Total Bilirubin AST 130 H ALT 707 H Alkaline Phosphatase Troponin I Free T4 Free T3 TSH 3rd Generation Digoxin B-Hydroxybutyrate Hepatitis A IgM Ab Hep Bs Antigen Hep B Core IgM Ab Hepatitis C Antibody 11/22/17 11/23/17 11/24/17 05:14 04:25 05:05 WBC Sodium 149 H 151 H Hemoglobin A1c Lactic Acid Calcium 10.5 H Magnesium 2.1 Iron TIBC % Saturation Ferritin Total Bilirubin AST 66 H ALT 504 H 324 H Alkaline Phosphatase 64 Troponin I Free T4 Free T3 TSH 3rd Generation Digoxin B-Hydroxybutyrate Hepatitis A IgM Ab Hep Bs Antigen Hep B Core IgM Ab Hepatitis C Antibody Radiology Reviewed by me: Yes (Abd sono - no CBD obstruction, R pleural effusion ) EKG Reviewed by me: Yes (Tele - SR) Phys Exam - Physical Examination Constitutional: NAD opens eyes to name and states a few words HEENT: PERRLA, oral pharynx no lesions Neck: no JVD, supple Respiratory: no wheezing, clear to auscultation bilateral Cardiovascular: RRR Gastrointestinal: soft, non-tender, no distention, positive bowel sounds Musculoskeletal: pulses present, edema present Neurological: normal sensation, moves all 4 limbs A x O x 1 Skin: normal turgor, cap refill <2 seconds Dx/Plan (1) Acute metabolic encephalopathy Code(s): G93.41 - METABOLIC ENCEPHALOPATHY Status: Acute Comment: Likely multifactorial including metabolic component, serial monitoring, CT brain negative, ? withdrawal symptoms, minimize psychotropic meds, slow recovery (2) Acute hypernatremia Code(s): E87.0 - HYPEROSMOLALITY AND HYPERNATREMIA Status: Acute Comment: Continue D5W IV to increase free-H2O, serial Na+ (3) Septic shock due to Escherichia coli Code(s): A41.51 - SEPSIS DUE TO ESCHERICHIA COLI [E. COLI]; R65.21 - SEVERE SEPSIS WITH SEPTIC SHOCK Status: Acute Comment: Sepsis resolving, Continue Rocephin, sepsis protocol, low-volume E. coli on Ucx, await final blood cx results (4) Shock liver Code(s): K72.00 - ACUTE AND SUBACUTE HEPATIC FAILURE WITHOUT COMA Status: Acute Comment: Improved, Suspected given septic shock, serial monitoring, appears to be resolving (5) Acute respiratory failure with hypoxia Code(s): J96.01 - ACUTE RESPIRATORY FAILURE WITH HYPOXIA Status: Acute Comment: Extubated 11/21/17, Pulmonology following, supplemental O2 via NC (6) DM hyperosmolarity type II, uncontrolled Code(s): E11.00 - TYPE 2 DIAB W HYPROSM W/O NONKET HYPRGLY-HYPROS COMA (N[facility]); E11.65 - TYPE 2 DIABETES MELLITUS WITH HYPERGLYCEMIA Status: Chronic Comment : A1C 7.2, ISS, Detemir 40u sc qam, serial accuchecks (7) SULEMAN (acute kidney injury) Code(s): N17.9 - ACUTE KIDNEY FAILURE, UNSPECIFIED Status: Acute Comment: resolving, Continue IVF's, avoid nephrotoxic meds and limit contrast exposure (8) CKD (chronic kidney disease) stage 3, GFR 30-59 ml/min Code(s): N18.3 - CHRONIC KIDNEY DISEASE, STAGE 3 (MODERATE) Status: Chronic (9) Cardiomyopathy Code(s): I42.9 - CARDIOMYOPATHY, UNSPECIFIED Status: Acute Comment: EF 25-30 % range, hold diuretics due to dehydration and hypernatremia (10) Elevated troponin I level Code(s): R74.8 - ABNORMAL LEVELS OF OTHER SERUM ENZYMES Status: Acute Comment: Likely due to demand ischemic state in context of septic shock - Plan continue antibiotics, PT/OT, dialysis social worker, respiratory therapy, DVT proph w/ SCDs Continue supportive mgmt -: Limit psychotropic meds -: Continue D5W for free-H2O replacement -: PT for mobilization -: ? SNF options for d/c planning * AM lab: CMP, CBC
[2017-11-24] MEDS: BESIVANCE 0.6% R EYE SCH (20:34)
[2017-11-24] MEDS: DIFLUPREDNATE 0.05% R EYE SCH (20:35)
--- NOTE | 2017-11-24 21:02 | PRG ---
DATE OF SERVICE: 11/24/2017 REASON FOR CONSULTATION: Elevated liver function test. SUBJECTIVE: No events or problems overnight. This morning, the patient seems to be even more alert and oriented when compared to the previous days mental examination. She was able to ask questions ef fectively and answer in more than short or correct sentences. Currently, she does have some mild alt ered sensorium with orientation x2 and does have some word difficulty searching for words in terms of conversation. Currently, denies any nausea, vomiting, fevers, chills, shortness of breath or abdomi nal pain. OBJECTIVE: VITAL SIGNS: Temperature 98.3, pulse 81, blood pressure 153/88, respiratory rate 19, satting 100% on 2 liters nasal cannula. GENERAL: The patient is lying in bed, in no acute distress, alert and oriented x2. CARDIOVASCULAR: Regular rate and rhythm with no discernible murmurs, gallops or rubs. RESPIRATORY: Clear to auscultation bilaterally with no discernible wheezes or rales. ABDOMEN: Normoactive bowel sounds, soft, nontender, nondistended, obese abdomen. EXTREMITIES: No cyanosis, clubbing or edema. LABORATORY DATA: Chemistry with sodium of 151, potassium 3.6, chloride 114, CO2 30, BUN 21, creatini ne 0.73. IMAGING DATA: No current GI imaging is available for review. ASSESSMENT AND PLAN: The patient is a 77-year-old female with past medical history of diabetes, cor[address] cancer status post mastectomy, ventricular tachycardia status post pacemaker placement, coronary a rtery disease with congestive heart failure and an ejection fraction of 35%, and chronic obstructive pulmonary disease, presenting with elevated liver function tests/shock liver. Elevated liver function tests/shock liver: The patient initially presented with acute altered mental status in light of urinary tract infection and urosepsis with experience profound hypotension shortl y after admission. In correlation with her blood pressure, there was a significant elevation in her liver function test after she experienced hypotension. She was successfully resuscitated with IV flu ids and is now maintaining a more normotensive pressure, which is evidenced in her current downtrendi ng of her LFTs. Per conversation with the patient's daughter and the , there was some questio n about underlying liver disease contributing to the liver function tests and/or encephalopathy. How ever, right upper quadrant ultrasound performed on 11/23/2017, did not show any evidence of cirrhotic morphology and when coupled with a normal platelet count is less likely to be indicative of cirrhosi s of the liver. At this point, her metabolic encephalopathy may be due to either ICU delirium or pro longed use of sedation medications while critically ill. RECOMMENDATIONS: 1. We would continue to trend LFTs daily along with INR for assessment of liver function. 2. Avoid any potential hepatotoxins. 3. We would continue to maintain normotensive blood pressures. 4. Continue to monitor clinically for improvement in metabolic encephalopathy. We will sign off at this time. Please call with any questions.
[2017-11-25] MEDS: Insulin Regular 300 UNITS/3 ML VIAL SC PRN ×2 (03:56→11:43)
[2017-11-25] MEDS: Metoprolol Tartrate 5 MG/5 ML VIAL IVP SCH ×2 (03:56→08:34)
[2017-11-25 04:43] LABS: #Lymphocytes 1.6 thou/uL (1.20-3.40); #Monocytes 0.6 thou/uL (0.11-0.59); #Neutrophils 2.8 thou/uL (1.40-6.50); %Basophils 0.7 % (0.0-1.0); %Eosinophils 0.9 % (0.0-10.0); %Lymphocytes 30.8 % (21.0-51.0); %Monocytes 12.6 % (0.0-10.0); Hemoglobin 11.2 g/dL (12.0-16.0); Mean Corpuscular HGB CONC 33.2 g/dL (32.0-36.0); Mean Corpuscular Hemoglobin 30.6 pg (27.0-31.0); Mean Corpuscular Volume 92.1 fl (81.0-99.0); Mean Platelet Volume 8.4 fL (7.4-10.4); Platelet Count 188 thou/uL (130-400); RBC Distribution Width 13.5 % (11.5-14.5); Red Blood Cell (RBC) Count 3.66 mill/uL (4.20-5.40)
[2017-11-25 04:52] LABS: Anion Gap 10 mmol/L (10-20); BUN (Urea Nitrogen) 19 mg/dL (9.8-20.1); Calc. Creatinine Clearance 104 mL/min (70-130); Calcium 9.8 mg/dL (7.8-10.44); Carbon Dioxide 31 mmol/L (23-31); Chloride 109 mmol/L (98-107); Estimated GFR-MDRD 79; Glucose 210 mg/dL (83-110); Sodium 147 mmol/L (136-145)
[2017-11-25 04:53] LABS: ALT (SGPT) 139 U/L (8-55); AST (SGOT) 18 U/L (5-34); Alkaline Phosphatase 41 U/L (40-150); Bilirubin, Direct 0.1 mg/dL (0.1-0.3); Bilirubin, Total 0.4 mg/dL (0.2-1.2)
[2017-11-25] MEDS: Enalaprilat Dihydrate 1.25 MG/ML VIAL SLOW IVP SCH (05:30)
--- NOTE | 2017-11-25 07:37 | PRG ---
DATE OF SERVICE: 11/25/2017 The patient is argumentative, somewhat agitated. Today I did find her oriented to place, date and pe rson, although she required a little prompting. PHYSICAL EXAMINATION: VITAL SIGNS: On exam temperature is 97.5, pulse 93, blood pressure 165/80. 24 hour intake, 2215, ou tput 2936. HEENT: Unremarkable. NECK: No JVD. CHEST: Clear without wheezing or rhonchi. CARDIAC: S1 and S2 regular. ABDOMEN: Soft. EXTREMITIES: No edema. LABORATORY DATA: White blood cell count 5, hematocrit 33.7, platelet count 188. Sodium 147, potassi um 3.0, chloride 109, CO2 31, BUN 19, creatinine 0.7, glucose 210. ASSESSMENT: 1. Encephalopathy, which is slowly improving. 2. Status post urosepsis/urinary tract infection with Escherichia coli. 3. Status post acute respiratory failure. 4. Improved hypernatremia. 5. Hypokalemia. PLAN: The patient can be transferred out to the floor as long as she has a sitter. Her progress is slow, but in the right direction.
[2017-11-25] MEDS: Digoxin 0.5 MG/2 ML AMP SLOW IVP SCH (08:34)
[2017-11-25] MEDS: Famotidine/PF 20 mg/2ml Vial SLOW IVP SCH (08:34)
[2017-11-25] MEDS: Enoxaparin Sodium 40 MG/0.4 ML SYRINGE SC SCH (08:36)
[2017-11-25] MEDS: Insulin Detemir 100 UNITS/ML 40 UNITS in Pre-Filled Syringe 1 EACH SC SCH (08:36)
[2017-11-25] MEDS: cefTRIAXone\\ROCEPHIN 2 GM in Sodium Chloride 0.9% 100 ML IVPB SCH (08:36)
[2017-11-25] MEDS: Levothyroxine 100 MCG SDV IVP SCH (08:40)
[2017-11-25] MEDS: PROLENSA 0.07% R EYE SCH (08:42)
[2017-11-25] MEDS: DIFLUPREDNATE 0.05% R EYE SCH ×2 (08:43→21:09)
[2017-11-25] MEDS: BESIVANCE 0.6% R EYE SCH ×2 (08:43→21:12)
--- NOTE | 2017-11-25 09:13 | PRG ---
DATE OF SERVICE: 11/25/2017 Ms. Sommer is doing well today. She is alert and oriented, breathing easily. No complaints, no angie st pain or pressure, no shortness of breath. PHYSICAL EXAMINATION: VITAL SIGNS: Blood pressure 146/70, pulse 98, sinus. LUNGS: Clear. There is no wheezing. CARDIAC: Normal S1, normal S2. ABDOMEN: Soft, nontender. EXTREMITIES: No edema. ASSESSMENT: 1. Congestive heart failure, systolic, acute on chronic, improved. 2. Asthma, improved. 3. Sepsis, improved. PLAN: Change to oral medicines. We will give lisinopril and carvedilol. Continue aspirin, continue spironolactone.
[2017-11-25] MEDS: Lisinopril 10 MG TAB PO SCH ×2 (09:44→21:06)
[2017-11-25] MEDS: Carvedilol 6.25 MG TAB PO SCH ×2 (09:44→16:29)
[2017-11-25] MEDS: Famotidine 20 MG TAB PO SCH ×2 (09:45→21:07)
[2017-11-25] MEDS: Spironolactone 25 MG TAB PO SCH ×2 (09:45→16:29)
[2017-11-25 10:01] VITALS: BMI 34.3
[2017-11-25] MEDS: Budesonide 0.5 MG/2 ML NEB NEB SCH (12:42)
[2017-11-25] MEDS: Dextrose 5% in Water 1,000 ML IV SCH (21:06)
--- NOTE | 2017-11-25 22:45 | PDOC.PN ---
- Subjective Encounter Start Date: 11/25/17 Encounter Start Time: 18:00 Subjective: f/u metabolic encephalopathy likely multifactorial and component -: of withdrawal type sx. Overall improved and awake today. Still with -: intermittent confusion. - Objective Resuscitation Status: Resuscitation Status FULL:Full Resuscitation MAR Reviewed: Yes Vital Signs & Weight: Vital Signs (12 hours) Temp Pulse Pulse Pulse Resp BP BP 11/25/17 21:06 125/63 11/25/17 20:00 97.8 F 11/25/17 19:55 96 24 H 11/25/17 16:29 169/80 H 11/25/17 13:09 90 82 127/75 11/25/17 12:41 86 16 BP Pulse Ox Pulse Ox Pulse Ox 11/25/17 21:06 11/25/17 20:00 11/25/17 19:55 100 11/25/17 16:29 11/25/17 13:09 173/93 H 86 L 94 L 11/25/17 12:41 99 Weight Admit Weight 220 lb 0.341 oz Weight 219 lb 5 oz Most Recent Monitor Data Heart Rate from ECG 74 NIBP 148/66 NIBP BP-Mean 93 Respiration from ECG 25 SpO2 100 I&O: 11/24/17 11/25/17 11/26/17 06:59 06:59 06:59 Intake Total 1665 2215 2200 Output Total 1975 2936 720 Balance -310 -721 1480 Result Diagrams: 11/25/17 04:14 11/25/17 04:14 Additional Labs: Accuchecks 11/25/17 11/25/17 11/25/17 20:02 15:50 11:43 POC Glucose 157 H 148 H 224 H 11/25/17 11/24/17 03:56 23:52 POC Glucose 197 H 268 H Microbiology 11/17/17 23:43 Urine Straight Catheter Urine Culture - Final Escherichia coli 11/17/17 23:15 Nasal swab Influenza Types A,B Direct EIA - Final 11/18/17 04:13 Venous blood - Right Hand Blood Culture - Preliminary Specimen has been received and culture in progress. No Growth to date. 11/18/17 04:13 Venous blood - Right Hand Blood Culture - Preliminary NO GROWTH AT 48 HOURS 11/18/17 03:42 Venous blood - Left Hand Blood Culture - Preliminary Specimen has been received and culture in progress. No Growth to date. 11/18/17 03:42 Venous blood - Left Hand Blood Culture - Preliminary NO GROWTH AT 48 HOURS 11/17/17 23:43 Urine Straight Catheter Urine Culture - Preliminary Escherichia coli 11/17/17 23:28 Venous blood - Left Hand Blood Culture - Preliminary Specimen has been received and culture in progress. No Growth to date. 11/17/17 23:28 Venous blood - Left Hand Blood Culture - Preliminary NO GROWTH AT 48 HOURS 11/17/17 23:18 Venous blood - Left Hand Blood Culture - Preliminary Specimen has been received and culture in progress. No Growth to date. 11/17/17 23:18 Venous blood - Left Hand Blood Culture - Preliminary NO GROWTH AT 48 HOURS Laboratory Tests 11/17/17 11/17/17 11/17/17 23:18 23:18 23:28 WBC Hgb Sodium Potassium Hemoglobin A1c Lactic Acid 4.4 H* Calcium Magnesium Iron TIBC % Saturation Ferritin Total Bilirubin 0.6 AST 31 ALT 24 Alkaline Phosphatase Troponin I Free T4 Free T3 TSH 3rd Generation Digoxin B-Hydroxybutyrate 0.14 Hepatitis A IgM Ab Hep Bs Antigen Hep B Core IgM Ab Hepatitis C Antibody 11/18/17 11/18/17 11/18/17 02:57 04:13 04:13 WBC Hgb Sodium Potassium Hemoglobin A1c Lactic Acid 3.3 H Calcium Magnesium Iron TIBC % Saturation Ferritin Total Bilirubin 0.4 AST 28 ALT 23 Alkaline Phosphatase Troponin I 1.652 H* Free T4 Free T3 TSH 3rd Generation Digoxin B-Hydroxybutyrate Hepatitis A IgM Ab Hep Bs Antigen Hep B Core IgM Ab Hepatitis C Antibody 11/18/17 11/18/17 11/18/17 04:13 04:13 04:13 WBC 12.4 H Hgb Sodium Potassium Hemoglobin A1c 7.2 H Lactic Acid Calcium Magnesium Iron TIBC % Saturation Ferritin Total Bilirubin AST ALT Alkaline Phosphatase Troponin I Free T4 Free T3 TSH 3rd Generation Digoxin 0.29 L B-Hydroxybutyrate Hepatitis A IgM Ab Hep Bs Antigen Hep B Core IgM Ab Hepatitis C Antibody 11/18/17 11/18/17 11/18/17 04:13 04:13 05:32 WBC Hgb Sodium Potassium Hemoglobin A1c Lactic Acid Calcium Magnesium Iron TIBC % Saturation Ferritin Total Bilirubin AST ALT Alkaline Phosphatase Troponin I 1.794 H* Free T4 1.14 Free T3 1.86 TSH 3rd Generation 0.0030 L Digoxin B-Hydroxybutyrate Hepatitis A IgM Ab Hep Bs Antigen Hep B Core IgM Ab Hepatitis C Antibody 11/19/17 11/19/17 11/20/17 05:25 08:34 04:28 WBC Hgb Sodium Potassium Hemoglobin A1c Lactic Acid Calcium Magnesium Iron TIBC % Saturation Ferritin Total Bilirubin 0.3 AST 627 H 511 H ALT 906 H 1074 H Alkaline Phosphatase 67 Troponin I Free T4 Free T3 TSH 3rd Generation Digoxin B-Hydroxybutyrate Hepatitis A IgM Ab Non-Reactive Hep Bs Antigen Non-Reactive Hep B Core IgM Ab Non-Reactive Hepatitis C Antibody Non-Reactive 11/21/17 11/21/17 11/21/17 03:35 03:35 03:35 WBC Hgb 9.2 L Sodium 144 Potassium Hemoglobin A1c Lactic Acid Calcium Magnesium Iron 35 L 34 L TIBC 169 L % Saturation 20 Ferritin Total Bilirubin AST 130 H ALT 707 H Alkaline Phosphatase Troponin I Free T4 Free T3 TSH 3rd Generation Digoxin B-Hydroxybutyrate Hepatitis A IgM Ab Hep Bs Antigen Hep B Core IgM Ab Hepatitis C Antibody 11/21/17 11/22/17 11/22/17 03:35 05:14 05:14 WBC Hgb 11.2 L Sodium 149 H Potassium Hemoglobin A1c Lactic Acid Calcium Magnesium Iron TIBC % Saturation Ferritin 754.17 H Total Bilirubin AST 66 H ALT 504 H Alkaline Phosphatase 64 Troponin I Free T4 Free T3 TSH 3rd Generation Digoxin B-Hydroxybutyrate Hepatitis A IgM Ab Hep Bs Antigen Hep B Core IgM Ab Hepatitis C Antibody 11/23/17 11/24/17 11/25/17 04:25 05:05 04:14 WBC Hgb Sodium 151 H 151 H Potassium 3.6 Hemoglobin A1c Lactic Acid Calcium 10.5 H Magnesium 2.1 Iron TIBC % Saturation Ferritin Total Bilirubin AST 18 ALT 324 H 139 H Alkaline Phosphatase 41 Troponin I Free T4 Free T3 TSH 3rd Generation Digoxin B-Hydroxybutyrate Hepatitis A IgM Ab Hep Bs Antigen Hep B Core IgM Ab Hepatitis C Antibody EKG Reviewed by me: Yes (Tele - SR with intermittent pacing) Phys Exam - Physical Examination Constitutional: NAD alert, responds to questions HEENT: PERRLA, oral pharynx no lesions Neck: no JVD, supple few basilar crackles Respiratory: no wheezing Cardiovascular: RRR Gastrointestinal: soft, non-tender, no distention, positive bowel sounds Musculoskeletal: no edema, pulses present Neurological: normal sensation, moves all 4 limbs A x O x 2 Skin: normal turgor, cap refill <2 seconds Dx/Plan (1) Acute metabolic encephalopathy Code(s): G93.41 - METABOLIC ENCEPHALOPATHY Status: Acute Comment: Likely multifactorial including metabolic component, serial monitoring, CT brain negative, ? withdrawal symptoms, minimize psychotropic meds, slow recovery (2) Acute hypernatremia Code(s): E87.0 - HYPEROSMOLALITY AND HYPERNATREMIA Status: Acute Comment: Continue D5W IV to increase free-H2O, serial Na+, improved (3) Septic shock due to Escherichia coli Code(s): A41.51 - SEPSIS DUE TO ESCHERICHIA COLI [E. COLI]; R65.21 - SEVERE SEPSIS WITH SEPTIC SHOCK Status: Acute Comment: Sepsis resolving, Continue Rocephin, sepsis protocol, low-volume E. coli on Ucx, await final blood cx results (4) Shock liver Code(s): K72.00 - ACUTE AND SUBACUTE HEPATIC FAILURE WITHOUT COMA Status: Acute Comment: Improved, Suspected given septic shock, serial monitoring, appears to be resolving (5) Acute respiratory failure with hypoxia Code(s): J96.01 - ACUTE RESPIRATORY FAILURE WITH HYPOXIA Status: Acute Comment: Extubated 11/21/17, Pulmonology following, supplemental O2 via NC (6) DM hyperosmolarity type II, uncontrolled Code(s): E11.00 - TYPE 2 DIAB W HYPROSM W/O NONKET HYPRGLY-HYPROS COMA ([facility]); E11.65 - TYPE 2 DIABETES MELLITUS WITH HYPERGLYCEMIA Status: Chronic Comment : A1C 7.2, ISS, Detemir 40u sc qam, serial accuchecks (7) SULEMAN (acute kidney injury) Code(s): N17.9 - ACUTE KIDNEY FAILURE, UNSPECIFIED Status: Acute Comment: resolving, Continue IVF's, avoid nephrotoxic meds and limit contrast exposure (8) CKD (chronic kidney disease) stage 3, GFR 30-59 ml/min Code(s): N18.3 - CHRONIC KIDNEY DISEASE, STAGE 3 (MODERATE) Status: Chronic (9) Cardiomyopathy Code(s): I42.9 - CARDIOMYOPATHY, UNSPECIFIED Status: Chronic Comment: EF 25- 30% range, Spironolactone 25mg BID, Coreg (10) Elevated troponin I level Code(s): R74.8 - ABNORMAL LEVELS OF OTHER SERUM ENZYMES Status: Acute Comment: Likely due to demand ischemic state in context of septic shock - Plan continue antibiotics, PT/OT, social work associate, respiratory therapy, out of bed/ ambulate, DVT proph w/SCDs Stable currently -: Limit psychotropic exposure -: Continue D5W IV for hypernatremia -: KCL supplementation -: PT for mobilization and ambulation * CM for SNF options * AM lab: BMP
[2017-11-26] MEDS: Insulin Regular 300 UNITS/3 ML VIAL SC PRN ×2 (00:01→15:44)
[2017-11-26] MEDS: Levothyroxine Sodium 100 MCG TAB PO SCH (05:01)
[2017-11-26 06:41] LABS: Anion Gap 12 mmol/L (10-20); BUN (Urea Nitrogen) 13 mg/dL (9.8-20.1); Calc. Creatinine Clearance 119 mL/min (70-130); Calcium 9.5 mg/dL (7.8-10.44); Carbon Dioxide 28 mmol/L (23-31); Chloride 101 mmol/L (98-107); Estimated GFR-MDRD Greater than 90; Glucose 123 mg/dL (83-110); Potassium 3.1 mmol/L (3.5-5.1); Sodium 138 mmol/L (136-145)
[2017-11-26] MEDS: Budesonide 0.5 MG/2 ML NEB NEB SCH (07:19)
[2017-11-26] MEDS ORDERED: Guaifenesin DM 100-10/5 ML UDCUP PO PRN (07:56)
[2017-11-26] MEDS: Spironolactone 25 MG TAB PO SCH ×2 (08:26→16:05)
[2017-11-26] MEDS: Carvedilol 6.25 MG TAB PO SCH ×2 (08:26→16:05)
[2017-11-26] MEDS: Lisinopril 10 MG TAB PO SCH ×2 (08:31→20:58)
[2017-11-26] MEDS: Digoxin 0.5 MG/2 ML AMP SLOW IVP SCH (08:31)
[2017-11-26] MEDS: Famotidine 20 MG TAB PO SCH ×2 (08:31→20:58)
[2017-11-26] MEDS: Insulin Detemir 100 UNITS/ML 40 UNITS in Pre-Filled Syringe 1 EACH SC SCH (08:33)
[2017-11-26] MEDS: cefTRIAXone\\ROCEPHIN 2 GM in Sodium Chloride 0.9% 100 ML IVPB SCH (08:33)
[2017-11-26] MEDS: DIFLUPREDNATE 0.05% R EYE SCH ×2 (08:34→22:00)
[2017-11-26] MEDS: PROLENSA 0.07% R EYE SCH (08:34)
[2017-11-26] MEDS: Enoxaparin Sodium 40 MG/0.4 ML SYRINGE SC SCH (08:34)
[2017-11-26] MEDS: BESIVANCE 0.6% R EYE SCH ×2 (08:34→21:59)
--- NOTE | 2017-11-26 12:24 | PRG ---
DATE OF SERVICE: 11/26/2017 SUBJECTIVE: Patient is extremely talkative, seems to be doing better. PHYSICAL EXAMINATION: VITAL SIGNS: Temperature 98.1, pulse 84, blood pressure 103/69. A 24 hour intake 3238, output 1290. HEENT: Unremarkable. NECK: No JVD. CHEST: Clear without wheeze or rhonchi. CARDIAC: S1 and S2 regular. ABDOMEN: Soft. EXTREMITIES: No edema. LABORATORY DATA: Sodium 138, potassium 3.1, chloride 101, CO2 28, BUN 13, creatinine 0.6, glucose 12 3. ASSESSMENT: 1. Continued improvement from urosepsis. 2. Encephalopathy, which appears to be resolved. 3. Deconditioning. 4. Hypokalemia. PLAN: The patient's free water will be stopped. Her potassium will be replaced. I think she can mo ve to the medical floor and she does not need a sitter at this time.
--- NOTE | 2017-11-26 20:11 | PDOC.PN ---
- Subjective Encounter Start Date: 11/26/17 Encounter Start Time: 18:00 Subjective: f/u for metabolic encephalopathy improving with supportive mgmt. -: Sepsis from UTI resolving and overall pt feels better. Intermittent -: confusion but ambulated in room and sat in chair. Tolerating po intake. - Objective Resuscitation Status: Resuscitation Status FULL:Full Resuscitation MAR Reviewed: Yes Vital Signs & Weight: Vital Signs (12 hours) Temp Pulse Pulse Pulse Resp BP BP 11/26/17 18:48 74 16 11/26/17 16:05 101/70 11/26/17 16:00 98.3 F 11/26/17 14:36 92 17 11/26/17 12:00 98.4 F 11/26/17 09:26 91 88 161/69 H 11/26/17 08:31 99 125/63 11/26/17 08:26 125/63 Pulse Ox Pulse Ox 11/26/17 18:48 96 11/26/17 16:05 11/26/17 16:00 11/26/17 14:36 11/26/17 12:00 11/26/17 09:26 98 11/26/17 08:31 11/26/17 08:26 Weight Admit Weight 220 lb 0.341 oz Weight 219 lb 5 oz Most Recent Monitor Data Heart Rate from ECG 82 NIBP 101/70 NIBP BP-Mean 87 Respiration from ECG 18 SpO2 95 I&O: 11/25/17 11/26/17 11/27/17 06:59 06:59 06:59 Intake Total 2215 3238 1241 Output Total 2936 1290 1155 Balance -721 1948 86 Result Diagrams: 11/25/17 04:14 11/26/17 06:12 Additional Labs: Accuchecks 11/26/17 11/26/17 11/26/17 15:44 03:56 00:00 POC Glucose 282 H 132 H 213 H 11/25/17 20:02 POC Glucose 157 H EKG Reviewed by me: Yes (Tele - SR with intermittent pacing) Phys Exam - Physical Examination Constitutional: NAD alert, responds to questions, follows commands HEENT: PERRLA, oral pharynx no lesions Neck: no JVD, supple Respiratory: no wheezing, clear to auscultation bilateral Cardiovascular: RRR Gastrointestinal: soft, non-tender, no distention, positive bowel sounds Musculoskeletal: no edema, pulses present Neurological: normal sensation, moves all 4 limbs A x O x 3 Psychiatric: A&O x 3 Skin: normal turgor, cap refill <2 seconds Dx/Plan (1) Acute metabolic encephalopathy Code(s): G93.41 - METABOLIC ENCEPHALOPATHY Status: Acute Comment: Likely multifactorial including metabolic component improving and resolving, serial monitoring, CT brain negative, ? withdrawal symptoms, minimize psychotropic medication exposure (2) Acute hypernatremia Code(s): E87.0 - HYPEROSMOLALITY AND HYPERNATREMIA Status: Acute Comment: Resolved (3) Septic shock due to Escherichia coli Code(s): A41.51 - SEPSIS DUE TO ESCHERICHIA COLI [E. COLI]; R65.21 - SEVERE SEPSIS WITH SEPTIC SHOCK Status: Acute Comment: Sepsis resolving, Continue Rocephin, sepsis protocol, low-volume E. coli on Ucx (4) Shock liver Code(s): K72.00 - ACUTE AND SUBACUTE HEPATIC FAILURE WITHOUT COMA Status: Acute Comment: Improved, Suspected given septic shock, serial monitoring, appears to be resolving (5) Acute respiratory failure with hypoxia Code(s): J96.01 - ACUTE RESPIRATORY FAILURE WITH HYPOXIA Status: Acute Comment: Extubated 11/21/17, Pulmonology following, supplemental O2 via NC (6) DM hyperosmolarity type II, uncontrolled Code(s): E11.00 - TYPE 2 DIAB W HYPROSM W/O NONKET HYPRGLY-HYPROS COMA ([facility]); E11.65 - TYPE 2 DIABETES MELLITUS WITH HYPERGLYCEMIA Status: Chronic Comment : A1C 7.2, ISS, Detemir 40u sc qam, serial accuchecks (7) SULEMAN (acute kidney injury) Code(s): N17.9 - ACUTE KIDNEY FAILURE, UNSPECIFIED Status: Acute Comment: resolving, Continue IVF's, avoid nephrotoxic meds and limit contrast exposure (8) CKD (chronic kidney disease) stage 3, GFR 30-59 ml/min Code(s): N18.3 - CHRONIC KIDNEY DISEASE, STAGE 3 (MODERATE) Status: Chronic (9) Cardiomyopathy Code(s): I42.9 - CARDIOMYOPATHY, UNSPECIFIED Status: Chronic Comment: EF 25- 30% range, Spironolactone 25mg BID, Coreg (10) Elevated troponin I level Code(s): R74.8 - ABNORMAL LEVELS OF OTHER SERUM ENZYMES Status: Acute Comment: Likely due to demand ischemic state in context of septic shock - Plan continue antibiotics, PT/OT, social worker assistant, out of bed/ambulate, DVT proph w/ SCDs Stable currently -: CM for SNF options -: KCL replacement -: PT for mobilization and ambulation -: Transfer to Medical floor * Likely can d/c to SNF when facility accepts
[2017-11-27] MEDS: Levothyroxine Sodium 100 MCG TAB PO SCH (05:22)
[2017-11-27] MEDS: Budesonide 0.5 MG/2 ML NEB NEB SCH (08:15)
--- NOTE | 2017-11-27 08:20 | PRG ---
DATE OF SERVICE: 11/27/2017 SUBJECTIVE: She is awake, alert, seems to be doing well. She has lost IV access. OBJECTIVE: VITAL SIGNS: Temperature 98.3, pulse 76, blood pressure 133/56. HEENT: Unremarkable. NECK: No JVD. LUNGS: Clear. CARDIAC: S1 and S2 regular. ABDOMEN: Soft. EXTREMITIES: No edema. LABORATORY DATA: No labs were obtained today. ASSESSMENT: 1. Urosepsis. 2. Resolved shock liver. 3. Resolving encephalopathy. PLAN: She has had over 7 days of antibiotics; therefore, antibiotics will be stopped. She does not need an IV. At this point, she mainly needs rehabilitation. She will be transferred out to the [facility] with a sitter. Her Price will be discontinued.
[2017-11-27] MEDS: Spironolactone 25 MG TAB PO SCH ×2 (09:40→17:11)
[2017-11-27] MEDS: Carvedilol 6.25 MG TAB PO SCH ×2 (09:40→17:10)
[2017-11-27] MEDS: Insulin Detemir 100 UNITS/ML 40 UNITS in Pre-Filled Syringe 1 EACH SC SCH (09:41)
[2017-11-27] MEDS: Digoxin 0.5 MG/2 ML AMP SLOW IVP SCH (09:41)
[2017-11-27] MEDS: Famotidine 20 MG TAB PO SCH ×2 (09:41→20:14)
[2017-11-27] MEDS: Enoxaparin Sodium 40 MG/0.4 ML SYRINGE SC SCH (09:41)
[2017-11-27] MEDS: Lisinopril 10 MG TAB PO SCH ×2 (09:42→20:14)
[2017-11-27] MEDS: BESIVANCE 0.6% R EYE SCH ×2 (09:43→20:15)
[2017-11-27] MEDS: PROLENSA 0.07% R EYE SCH (09:43)
[2017-11-27] MEDS: DIFLUPREDNATE 0.05% R EYE SCH ×2 (09:43→20:15)
[2017-11-27] MEDS: Digoxin 0.125 MG TAB PO SCH (09:55)
[2017-11-27] MEDS: Insulin Regular 300 UNITS/3 ML VIAL SC PRN ×2 (10:01→11:44)
[2017-11-27] MEDS: Acetaminophen 325 MG TAB PO PRN (13:33)
--- NOTE | 2017-11-27 17:41 | PDOC.PN ---
- Subjective Encounter Start Date: 11/27/17 Encounter Start Time: 13:45 -: old records requested/rev Pt seen and exmained, chart reviewed in its entirety, this is my first visit with this patient Pt talkative, a little confused. no F/C, no N/V/D/C, no CP or sOB. Anxiously awaiting Dr Burroughs's visit. case discussed with nursing and case management. referral to [facility] for Rehab, cleared for discharge by consultants when approved. 10 point ROs performed and neg for all systems except as per hPI - Objective Resuscitation Status: Resuscitation Status FULL:Full Resuscitation MAR Reviewed: Yes Vital Signs & Weight: Vital Signs (12 hours) Temp Pulse Pulse Pulse Resp BP BP 11/27/17 17:10 126/59 L 11/27/17 16:00 98.1 F 11/27/17 14:21 80 20 11/27/17 11:55 98.3 F 11/27/17 10:17 132/66 11/27/17 09:55 97 11/27/17 09:42 120/74 11/27/17 09:41 85 11/27/17 09:40 120/74 11/27/17 08:45 86 89 120/75 11/27/17 08:15 85 22 H 11/27/17 08:13 85 22 H 11/27/17 08:00 98.2 F 83 28 H BP Pulse Ox Pulse Ox Pulse Ox 11/27/17 17:10 11/27/17 16:00 11/27/17 14:21 11/27/17 11:55 11/27/17 10:17 131/60 11/27/17 09:55 11/27/17 09:42 11/27/17 09:41 11/27/17 09:40 11/27/17 08:45 108/58 L 97 97 11/27/17 08:15 11/27/17 08:13 11/27/17 08:00 98 Weight Admit Weight 220 lb 0.341 oz Weight 219 lb 5 oz Most Recent Monitor Data Heart Rate from ECG 79 NIBP 126/59 NIBP BP-Mean 88 Respiration from ECG 18 SpO2 97 I&O: 11/26/17 11/27/17 11/28/17 06:59 06:59 06:59 Intake Total 3238 2081 1400 Output Total 1290 3505 1395 Balance 1948 -1424 5 Result Diagrams: 11/25/17 04:14 11/26/17 06:12 Additional Labs: Accuchecks 11/27/17 11/27/17 11/27/17 16:12 11:44 11:37 POC Glucose 75 252 H 278 H 11/27/17 11/27/17 11/26/17 09:52 04:51 23:38 POC Glucose 244 H 86 97 11/26/17 20:58 POC Glucose 131 H Radiology Reviewed by me: Yes EKG Reviewed by me: Yes Phys Exam - Physical Examination Constitutional: NAD HEENT: PERRLA, moist MMs, sclera anicteric, oral pharynx no lesions Neck: no nodes, no JVD, supple, full ROM Respiratory: no wheezing, no rhonchi, clear to auscultation bilateral faint crackles in bilateral bases Cardiovascular: RRR, no significant murmur, no rub Gastrointestinal: soft, non-tender, no distention, positive bowel sounds Musculoskeletal: pulses present, edema present Neurological: non-focal, normal sensation, moves all 4 limbs Lymphatic: no nodes Psychiatric: A&O x 3 Skin: no rash, normal turgor, cap refill <2 seconds Dx/Plan (1) SULEMAN (acute kidney injury) Code(s): N17.9 - ACUTE KIDNEY FAILURE, UNSPECIFIED Status: Resolved Comment : resolving, Continue IVF's, avoid nephrotoxic meds and limit contrast exposure (2) Acute hypernatremia Code(s): E87.0 - HYPEROSMOLALITY AND HYPERNATREMIA Status: Resolved Comment : Resolved (3) Acute metabolic encephalopathy Code(s): G93.41 - METABOLIC ENCEPHALOPATHY Status: Acute Comment: Likely multifactorial including metabolic component improving and resolving, serial monitoring, CT brain negative, ? withdrawal symptoms, minimize psychotropic medication exposure. improving daily (4) Acute respiratory failure with hypoxia Code(s): J96.01 - ACUTE RESPIRATORY FAILURE WITH HYPOXIA Status: Resolved Comment: Extubated 11/21/17, Pulmonology following, supplemental O2 via NC (5) NSTEMI (non-ST elevated myocardial infarction) Code(s): I21.4 - NON-ST ELEVATION (NSTEMI) MYOCARDIAL INFARCTION Status: Resolved (6) Non-sustained ventricular tachycardia Code(s): I47.2 - VENTRICULAR TACHYCARDIA Status: Resolved (7) Physical deconditioning Code(s): R53.81 - OTHER MALAISE Status: Chronic (8) Septic shock due to Escherichia coli Code(s): A41.51 - SEPSIS DUE TO ESCHERICHIA COLI [E. COLI]; R65.21 - SEVERE SEPSIS WITH SEPTIC SHOCK Status: Resolved Comment: Sepsis resolved, Continue Rocephin, sepsis protocol, low-volume E. coli on Ucx. complete abx (9) Shock liver Code(s): K72.00 - ACUTE AND SUBACUTE HEPATIC FAILURE WITHOUT COMA Status: Resolved Comment: Improved, Suspected given septic shock, serial monitoring, appears to be resolving (10) UTI (urinary tract infection) Status: Acute Qualifiers: Urinary tract infection type: acute cystitis Hematuria presence: without hematuria Qualified Code(s): N30.00 - Acute cystitis without hematuria (11) DM hyperosmolarity type II, uncontrolled Code(s): E11.00 - TYPE 2 DIAB W HYPROSM W/O NONKET HYPRGLY-HYPROS COMA ([facility]); E11.65 - TYPE 2 DIABETES MELLITUS WITH HYPERGLYCEMIA Status: Chronic Qualifiers: Diabetes mellitus termite treater helper insulin use: without skilled nursing use Diabetes mellitus complication detail: without coma Qualified Code(s): E11.00 - Type 2 diabetes mellitus with hyperosmolarity without nonketotic hyperglycemic- hyperosmolar coma ([facility]) Comment: A1C 7.2, ISS, Detemir 40u sc qam, serial accuchecks - Plan cont current plan of care, PT/OT, respiratory therapy, out of bed/ambulate * .
[2017-11-28] MEDS: Acetaminophen 325 MG TAB PO PRN (05:04)
[2017-11-28] MEDS: Levothyroxine Sodium 100 MCG TAB PO SCH (05:05)
[2017-11-28] MEDS: Budesonide 0.5 MG/2 ML NEB NEB SCH (07:04)
[2017-11-28] MEDS: Carvedilol 6.25 MG TAB PO SCH ×2 (08:29→16:49)
[2017-11-28] MEDS: Digoxin 0.125 MG TAB PO SCH (08:30)
[2017-11-28] MEDS: Spironolactone 25 MG TAB PO SCH ×2 (08:30→16:49)
[2017-11-28] MEDS: Enoxaparin Sodium 40 MG/0.4 ML SYRINGE SC SCH (08:30)
[2017-11-28] MEDS: Insulin Detemir 100 UNITS/ML 40 UNITS in Pre-Filled Syringe 1 EACH SC SCH (08:31)
[2017-11-28] MEDS: Famotidine 20 MG TAB PO SCH ×2 (08:31→20:21)
[2017-11-28] MEDS: Lisinopril 10 MG TAB PO SCH ×2 (08:32→20:20)
[2017-11-28] MEDS: BESIVANCE 0.6% R EYE SCH ×2 (08:33→20:22)
[2017-11-28] MEDS: DIFLUPREDNATE 0.05% R EYE SCH ×2 (08:35→20:23)
[2017-11-28] MEDS: PROLENSA 0.07% R EYE SCH (08:36)
--- NOTE | 2017-11-28 10:26 | PRG ---
DATE OF SERVICE: 11/28/2017 SUBJECTIVE: The patient is doing better from a mental status standpoint. OBJECTIVE: VITAL SIGNS: Temperature is 98.2, pulse 84, blood pressure 139/91, O2 sat 94%. HEENT: Unremarkable. NECK: No JVD. CHEST: Fairly clear. CARDIAC: S1 and S2 regular. ABDOMEN: Soft. EXTREMITIES: No edema. ASSESSMENT: 1. Status post intubation for septic shock and urosepsis. 2. Status post shock liver. 3. Improving encephalopathy. PLAN: The patient is probably ready for the next level of care, which I assume is probably going to be a shelter with rehabilitation. I doubt that she could endure 3 hours daily rehabilitation at the inpatient rehabilitation unit. Antibiotics have been stopped that she has had more than 7 da ys. The main issue now is just deconditioning. No further pulmonary recommendations. We will sign off. Please recall if further assistance needed.
[2017-11-28] MEDS: Insulin Regular 300 UNITS/3 ML VIAL SC PRN (13:16)
--- NOTE | 2017-11-28 21:54 | PDOC.PN ---
- Subjective Encounter Start Date: 11/28/17 Encounter Start Time: 12:15 PT rhyserred to the floor last evening. very talkative but just seems 'off' . concerned more about her carb load and sodium amount on her lunch tray d convinced her homemade yogurt would sell well here in the hospital. She discussed her strong desire to meet the foodservice team and help them improve the palatability and selection of their menu. no Fc, no N/V/D/c, denies dysuria. 10 point ROS performed and neg for all systems except as above - Objective Resuscitation Status: Resuscitation Status FULL:Full Resuscitation MAR Reviewed: Yes Vital Signs & Weight: Vital Signs (12 hours) Temp Pulse Resp BP BP Pulse Ox 11/28/17 20:20 129/74 11/28/17 20:00 98.6 F 68 20 129/74 95 11/28/17 19:06 76 18 97 11/28/17 16:49 135/81 11/28/17 16:00 98.2 F 64 20 148/85 H 94 L 11/28/17 13:48 69 18 98 11/28/17 12:00 97.9 F 77 94 H 135/81 20 L Weight Admit Weight 220 lb 0.341 oz Weight 219 lb 5 oz Most Recent Monitor Data Heart Rate from ECG 79 NIBP 126/59 NIBP BP-Mean 88 Respiration from ECG 18 SpO2 97 I&O: 11/27/17 11/28/17 11/29/17 06:59 06:59 06:59 Intake Total 2081 1400 1800 Output Total 3505 1970 Balance -1424 -570 1800 Result Diagrams: 11/25/17 04:14 11/26/17 06:12 Additional Labs: Accuchecks 11/28/17 11/28/17 11/28/17 20:14 16:12 11:25 POC Glucose 124 H 143 H 310 H 11/28/17 11/28/17 05:59 01:04 POC Glucose 137 H 170 H Phys Exam - Physical Examination Constitutional: NAD HEENT: PERRLA, moist MMs, sclera anicteric, oral pharynx no lesions Neck: no nodes, no JVD, supple, full ROM Respiratory: no wheezing, no rales, no rhonchi, clear to auscultation bilateral Cardiovascular: RRR, no significant murmur, no rub Gastrointestinal: soft, non-tender, no distention, positive bowel sounds Musculoskeletal: pulses present, edema present Neurological: non-focal, normal sensation, moves all 4 limbs Lymphatic: no nodes Psychiatric: normal affect, A&O x 3 Skin: no rash, normal turgor, cap refill <2 seconds Dx/Plan (1) SULEMAN (acute kidney injury) Code(s): N17.9 - ACUTE KIDNEY FAILURE, UNSPECIFIED Status: Resolved Comment : resolving, Continue IVF's, avoid nephrotoxic meds and limit contrast exposure. AM labs (2) Acute hypernatremia Code(s): E87.0 - HYPEROSMOLALITY AND HYPERNATREMIA Status: Resolved Comment : Resolved (3) Acute metabolic encephalopathy Code(s): G93.41 - METABOLIC ENCEPHALOPATHY Status: Acute Comment: Likely multifactorial including metabolic component improving and resolving, serial monitoring, CT brain negative, ? withdrawal symptoms, minimize psychotropic medication exposure. improving daily (4) Acute respiratory failure with hypoxia Code(s): J96.01 - ACUTE RESPIRATORY FAILURE WITH HYPOXIA Status: Resolved Comment: Extubated 11/21/17, Pulmonology following, supplemental O2 via NC (5) NSTEMI (non-ST elevated myocardial infarction) Code(s): I21.4 - NON-ST ELEVATION (NSTEMI) MYOCARDIAL INFARCTION Status: Resolved (6) Non-sustained ventricular tachycardia Code(s): I47.2 - VENTRICULAR TACHYCARDIA Status: Resolved (7) Physical deconditioning Code(s): R53.81 - OTHER MALAISE Status: Chronic (8) Septic shock due to Escherichia coli Code(s): A41.51 - SEPSIS DUE TO ESCHERICHIA COLI [E. COLI]; R65.21 - SEVERE SEPSIS WITH SEPTIC SHOCK Status: Resolved Comment: Sepsis resolved, Continue Rocephin, sepsis protocol, low-volume E. coli on Ucx. complete abx (9) Shock liver Code(s): K72.00 - ACUTE AND SUBACUTE HEPATIC FAILURE WITHOUT COMA Status: Resolved Comment: Improved, Suspected given septic shock, serial monitoring, appears to be resolving (10) UTI (urinary tract infection) Status: Acute Qualifiers: Urinary tract infection type: acute cystitis Hematuria presence: without hematuria Qualified Code(s): N30.00 - Acute cystitis without hematuria (11) DM hyperosmolarity type II, uncontrolled Code(s): E11.00 - TYPE 2 DIAB W HYPROSM W/O NONKET HYPRGLY-HYPROS COMA ([facility]); E11.65 - TYPE 2 DIABETES MELLITUS WITH HYPERGLYCEMIA Status: Chronic Qualifiers: Diabetes mellitus watermaster insulin use: without mcfp use Diabetes mellitus complication detail: without coma Qualified Code(s): E11.00 - Type 2 diabetes mellitus with hyperosmolarity without nonketotic hyperglycemic- hyperosmolar coma ([facility]) Comment: A1C 7.2, ISS, Detemir 40u sc qam, serial accuchecks - Plan * .
[2017-11-29] MEDS: Levothyroxine Sodium 100 MCG TAB PO SCH (04:48)
[2017-11-29] MEDS: Budesonide 0.5 MG/2 ML NEB NEB SCH (07:00)
[2017-11-29 07:01] LABS: #Eosinphils 0.1 thou/uL (0.0-0.7); #Lymphocytes 2.4 thou/uL (1.20-3.40); #Monocytes 0.8 thou/uL (0.11-0.59); %Basophils 0.4 % (0.0-1.0); %Eosinophils 1.5 % (0.0-10.0); %Lymphocytes 25.4 % (21.0-51.0); %Monocytes 8.2 % (0.0-10.0); %Neutrophils 64.6 % (42.0-75.0); Hemoglobin 11.7 g/dL (12.0-16.0); Mean Corpuscular HGB CONC 32.9 g/dL (32.0-36.0); Mean Corpuscular Hemoglobin 29.6 pg (27.0-31.0); Mean Platelet Volume 7.7 fL (7.4-10.4); Platelet Count 269 thou/uL (130-400); RBC Distribution Width 14.2 % (11.5-14.5); Red Blood Cell (RBC) Count 3.96 mill/uL (4.20-5.40); White Blood Cell (WBC) Count 9.3 thou/uL (4.8-10.8)
[2017-11-29 07:17] LABS: Anion Gap 13 mmol/L (10-20); BUN (Urea Nitrogen) 6 mg/dL (9.8-20.1); Calc. Creatinine Clearance 112 mL/min (70-130); Calcium 9.4 mg/dL (7.8-10.44); Carbon Dioxide 23 mmol/L (23-31); Chloride 103 mmol/L (98-107); Estimated GFR-MDRD 86; Glucose 179 mg/dL (83-110); Magnesium 1.8 mg/dL (1.6-2.6); Potassium 3.1 mmol/L (3.5-5.1); Sodium 136 mmol/L (136-145)
[2017-11-29 07:25] VITALS: BP 134/81; TEMP 98.7
[2017-11-29] MEDS: Famotidine 20 MG TAB PO SCH (08:06)
[2017-11-29] MEDS: Lisinopril 10 MG TAB PO SCH (08:06)
[2017-11-29] MEDS: Digoxin 0.125 MG TAB PO SCH (08:06)
[2017-11-29] MEDS: Carvedilol 6.25 MG TAB PO SCH (08:07)
[2017-11-29] MEDS: Enoxaparin Sodium 40 MG/0.4 ML SYRINGE SC SCH (08:07)
[2017-11-29] MEDS: Spironolactone 25 MG TAB PO SCH (08:07)
[2017-11-29] MEDS: Insulin Detemir 100 UNITS/ML 40 UNITS in Pre-Filled Syringe 1 EACH SC SCH (08:07)
[2017-11-29] MEDS: PROLENSA 0.07% R EYE SCH (08:08)
[2017-11-29] MEDS: BESIVANCE 0.6% R EYE SCH (08:09)
[2017-11-29] MEDS: DIFLUPREDNATE 0.05% R EYE SCH (08:09)
[2017-11-29] MEDS: Potassium Chloride 20 MEQ TAB PO SCH ×2 (08:29→12:08)
--- NOTE | 2017-12-02 13:40 | DIS ---
DATE OF ADMISSION: 11/18/2017 DATE OF DISCHARGE: 11/29/2017 DISCHARGE DIAGNOSES: 1. Acute kidney injury, resolved. 2. Acute hyponatremia. 3. Acute metabolic encephalopathy. 4. Acute respiratory failure with hypoxemia. 5. Non-ST elevation myocardial infarction. 6. Nonsustained ventricular tachycardia. 7. Physical deconditioning. 8. Escherichia coli septic shock. 9. Shock liver without mention of coma. 10. Urinary tract infection. 11. Diabetes mellitus type 2 with hyperglycemia, uncontrolled. CONSULTATIONS: 1. Pulmonary Critical Care, Dr. Tommy Lawson, 11/18/2017. 2. Cardiology, Dr. Arsh Huerat, 11/18/2017. 3. Gastroenterology, Dr. Dalton Yanez, 11/22/2017. PROCEDURES: 1. CT scan of the brain, 11/21/2017, that showed no acute intracranial findings. 2. Abdominal ultrasound, 11/23/2017, that showed right-sided pleural effusion, otherwise unremarkabl e right upper quadrant ultrasound. 3. Echocardiogram, 11/18/2017, that showed EF of 25% to 30%, akinetic inferior septal hardin. 4. Pacer wire in the right ventricle, mild to moderate MR, and mild TR. HISTORY AND PHYSICAL: Ms. Sommer is a 77-year-old female with a history of cardiovascular disease a nd permanent pacemaker placement with overdrive pacing for V-tach and chronic systolic CHF, who prese nted to the emergency department for altered mental status. She was seen at an outside facility, where she was found to have urinary tract infection, had been morrissey ving some dysuria for about 4 days prior to admission. She tried to self-treat with cranberry juice at home. She presented to the emergency department for evaluation, where she was found to be in septic shock w ith elevated lactate, fever, tachycardia, and was placed on an empiric vancomycin and gentamicin. Overnight, 11/17/2017 to 11/18/2017, the patient developed acute shaking overnight with increased sys tolic blood pressure and subsequently was watched. She was seen by Pulmonary Critical Care on the same day and had a central line placement to the right femoral vein due to poor IV access required for vasopressors. She was seen by Cardiology and felt t o have a non-ST elevation SD secondary to demand from her septic shock requiring pressor support and her known history of nonischemic cardiomyopathy. He recommended heparin for 24 more hours and then jose j durbininue her regular DVT prophylaxis. By 11/19/2017, Hospitalist Service was taken over by Dr. Dedrick Townsend. The patient was on vancomycin and Rocephin and remained on pressors. She did develop respiratory compensation, had to be intubate d overnight. By 11/20/2017, the patient remained with acute respiratory failure, on mechanical ventilation and was then weanable after trial of propofol. She was easily agitatable, was on IV insulin for glucose nor malization. From 11/20/2017 to 11/22/2017, the patient remained largely the same. She was able to be extubated, but still remained encephalopathic, was agitated, on wrist restraints on 11/22/[address] scan of the brain was unremarkable and sepsis continued to resolve. By 11/23/2017, she was starting to improve. She became more talkative between and . She wa s seen by Gastroenterology on the and followed. It was felt to be secondary to shock liver and recommended to continue monitoring. The patient slowly continued through 11/27/2017. On 11/27/2017, I did take over the case. The patient was talkative, but still a little confused. Crystal harmon had had no fevers or chills. She was anxious, awaiting Dr. Burroughs's visit as he has had saved her multiple times in the past. A referral was made to [facility] for rehabilitation and the patient wa s cleared for discharge by consultants once approved. By 11/28/2017, the patient may transfer to the floor. She was very talkative, but seemed slightly of normal mental status. 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 Medically, she was stable. She is afebrile with stable vital signs. Her labs had normalized and crystal harmon was medically ready for discharge. On 11/29/2017, she was more alert and oriented. She has been approved for rehab and was transferred to [facility] for ongoing care. PHYSICAL EXAMINATION: The patient was seen and examined on the day of discharge. Discharge plan and disposition was discussed with the patient face to face at the bedside. DISCHARGE ACTIVITY: Per cardiopulmonary limits. DISCHARGE DIET: Diabetic, heart healthy, low sodium diet recommended, Glucerna b.i.d. with meals per dietary recommendations. DISCHARGE THERAPY: Occupational therapy and physical therapy were ordered. DISCHARGE MEDICATIONS: 1. Flexeril 10 mg p.o. t.i.d. p.r.n. muscle spasm. 2. Tramadol 50 mg 2 tablets p.o. t.i.d. p.r.n. pain. 3. Lamotrigine 200 mg p.o. daily. 4. Levothyroxine 200 mcg daily. 5. Atorvastatin 80 mg p.o. at bedtime. 6. Lisinopril 30 mg p.o. daily. 7. Digoxin 125 mcg p.o. daily. 8. Isosorbide mononitrate ER 30 mg p.o. daily. 9. Carvedilol 25 mg p.o. b.i.d. 10. Budesonide 0.5 mg nebulized daily. 11. Lansoprazole 30 mg p.o. daily. 12. Vascepa 2 capsules oral b.i.d. with meals. 13. Trazodone 100 mg p.o. at bedtime. 14. Combivent 2 puffs inhaled 4 times daily. 15. Torsemide 2 tablets daily. 16. Spironolactone 25 mg daily. 17. DuoNebs 3 mL q.6 hours. 18. Bromfenac one drop right eye daily. 19. Besifloxacin 1 drop right eye b.i.d. 20. Difluprednate 1 drop right eye b.i.d. DISCHARGE CONDITION: Stable. DISPOSITION: Will be discharged to [facility] for rehabilitation. FOLLOWUP APPOINTMENT: 1. Primary care physician, Dr. Marifer Campbell, within a week. 2. Pulmonary Critical Care per their recommendations.
--- NOTE | 2017-12-26 15:04 | EKG ---
Test Reason : Blood Pressure : / mmHG Vent. Rate : 126 BPM Atrial Rate : 126 BPM P-R Int : 144 ms QRS Dur : 116 ms QT Int : 314 ms P-R-T Axes : 062 -66 081 degrees QTc Int : 454 ms Sinus tachycardia with occasional Premature ventricular complexes Possible Left atrial enlargement Left anterior fascicular block Septal infarct , age undetermined Abnormal ECG Confirmed by JANES LEAL ([id number]), editor department CHANTE JAIME ([id number]) on 12/26/2017 3:03:44 PM Referred By: Confirmed By:JANES LEAL
--- NOTE | 2017-12-26 15:04 | EKG ---
Test Reason : Blood Pressure : / mmHG Vent. Rate : 129 BPM Atrial Rate : 129 BPM P-R Int : 144 ms QRS Dur : 118 ms QT Int : 308 ms P-R-T Axes : 060 -63 079 degrees QTc Int : 451 ms Sinus tachycardia with Fusion complexes Possible Left atrial enlargement Left axis deviation Septal infarct , age undetermined Abnormal ECG Confirmed by JANES LEAL ([id number]), content editor CHANTE JAIME ([id number]) on 12/26/2017 3:03:43 PM Referred By: Confirmed By:JANES LEAL
== END 2017-11-29 12:17 | DRG 871 ==
LOC: ERS 22:59 → IMCU/EMU 23:57 → CCU 11-18 07:55 → T4-A 11-27 17:42
PROVIDERS: ADMIT Internal Medicine; ATTEND Internal Medicine
PROC: 5A1945Z Respiratory Ventilation, 24-96 Consecutive Hours (ICD-10-PCS; principal; 2017-11-18)
PROC: 06HM33Z Insertion of Infusion Device into Right Femoral Vein, Percutaneous Approach (ICD-10-PCS; 2017-11-18)
PROC: 0BH17EZ Insertion of Endotracheal Airway into Trachea, Via Natural or Artificial Opening (ICD-10-PCS; 2017-11-18)
DX: A41.51 Sepsis due to Escherichia coli [E. coli] (principal); J96.01 Acute respiratory failure with hypoxia; K72.00 Acute and subacute hepatic failure without coma; I21.4 Non-ST elevation (NSTEMI) myocardial infarction; E11.00 Type 2 diabetes mellitus with hyperosmolarity without nonketotic hyperglycemic-hyperosmolar coma (NKHHC); R65.21 Severe sepsis with septic shock; G93.41 Metabolic encephalopathy; I42.9 Cardiomyopathy, unspecified; E83.42 Hypomagnesemia; I50.23 Acute on chronic systolic (congestive) heart failure; I47.2 Ventricular tachycardia; N17.9 Acute kidney failure, unspecified; E87.0 Hyperosmolality and hypernatremia; N30.00 Acute cystitis without hematuria; E11.65 Type 2 diabetes mellitus with hyperglycemia; Z95.0 Presence of cardiac pacemaker; Z79.4 Long term (current) use of insulin; E11.22 Type 2 diabetes mellitus with diabetic chronic kidney disease; N18.3 Chronic kidney disease, stage 3 (moderate); E86.0 Dehydration; E03.9 Hypothyroidism, unspecified; E87.6 Hypokalemia
CPT/HCPCS: 36415; 36416; 51701; 70450; 71045; 76705; 80048; 80053; 80061; 80074; 80076; 80162; 80202; 81003; 81015; 82010; 82140; 82728; 82805; 83036; 83540; 83550; 83605; 83735; 83880; 84439; 84443; 84481; 84484; 85025; 85610; 85730; 87040; 87077; 87086; 87186; 87804; 93005; 93010; 93306; 94002; 94003; 94640; 94660; 96361; 96365; 96375; A4216; A4353; G8978-GP-CN; G8979-GP-CK; G8987-GO-CJ; G8988-GO-CI; G8996-GN-CN; G8997-GN-CK; J0330; J0696; J1160; J1580; J1644; J1650; J1815; J1940; J2060; J2250; J2270; J2704; J2765; J3370; J3475; J3480; J7050; J7620; J7626; S0028

== ENCOUNTER 2018-11-06 09:06 | Outpatient (CLI) | payer MEDICARE ==
[~2018-11-06 09:06] MED LIST: Iopamidol 370 76% 100 ML VIAL ONE
--- NOTE | 2018-11-06 12:24 | CT ---
CT ABDOMEN AND PELVIS WITH AND WITHOUT IV CONTRAST: Date: 11/06/18 HISTORY: Cystic kidney disease. FINDINGS: Correlation made with CT stone protocol of 10/23/18. The lung bases are clear. No calcified gallstones are seen. The liver has a 12.0 mm low density lesion with internal calcifications in the dome. The spleen, pancreas, and adrenal glands are normal. No calculi are seen in the kidneys, ureters, or urinary bladder. No hydroureteronephrosis noted in ei ther side. Tiny hyperdense foci are seen in the renal cortices, likely hemorrhagic cysts. Postcontras t images demonstrate low density lesions, the larger ones demonstrate no postcontrast enhancement, me asuring 15.0 mm on the right and 13.0 mm on the left kidney. In addition to this, there is an approxi mately 2.0 cm exophytic mass arising from the inferior pole of the left kidney which demonstrates pos tcontrast enhancement. No free air, free fluid, or lymphadenopathy noted in the abdomen or pelvis. There are vascular calcif ications without evidence of aneurysmal dilatation of the abdominal aorta. Degenerative changes are p resent in the spine. A fat-containing umbilical hernia with calcification in the sac are again seen. A 2.3 cm right adnexal cystic mass is seen, likely ovarian. Uterus is present. IMPRESSION: 1. Approximately 2.0 cm exophytic mass arising from the inferior pole of the left kidney, suspicious for malignancy. 2. Other lesions in the kidneys are likely cysts. POS: [facility]
== END 2018-11-06 09:07 | disposition home or self-care (01) ==
LOC: SCSCT 09:06
PROVIDERS: ATTEND Urology
DX: Q61.9 Cystic kidney disease, unspecified (principal); E11.22 Type 2 diabetes mellitus with diabetic chronic kidney disease; N18.9 Chronic kidney disease, unspecified; N28.9 Disorder of kidney and ureter, unspecified
CPT/HCPCS: 74178; Q9967

== ENCOUNTER 2021-07-03 17:44 | Inpatient (IN) | payer MEDICARE ==
[2021-07-03 21:13] VITALS: BMI 29.8
[2021-07-03] MEDS ORDERED: Acetaminophen 325 MG TAB PO PRN (21:40)
[2021-07-03] MEDS ORDERED: Ondansetron PF 4 MG/2 ML Vial IVP PRN (21:40)
[2021-07-03] MEDS ORDERED: hydrALAZINE 20 MG/ML VIAL SLOW IVP PRN (21:57)
[2021-07-03] MEDS ORDERED: traMADol HCl 50 MG TAB PO PRN (21:58)
[2021-07-03] MEDS ORDERED: Torsemide 20 MG TAB PO SCH (22:15)
[2021-07-04 04:55] LABS: #Basophils 0.1 thou/uL (0.0-0.2); #Eosinphils 0.2 thou/uL (0.0-0.7); #Lymphocytes 3.2 thou/uL (1.20-3.40); #Monocytes 0.7 thou/uL (0.11-0.59); #Neutrophils 2.4 thou/uL (1.40-6.50); %Eosinophils 2.9 % (0.0-10.0); %Lymphocytes 48.8 % (21.0-51.0); %Monocytes 10.4 % (0.0-10.0); %Neutrophils 36.9 % (42.0-75.0); Hemoglobin 13.3 g/dL (12.0-16.0); Mean Corpuscular Hemoglobin 31.7 pg (27.0-31.0); Mean Corpuscular Volume 90.6 fL (78.0-98.0); Mean Platelet Volume 7.3 fL (7.4-10.4); Platelet Count 190 thou/uL (130-400); RBC Distribution Width 12.3 % (11.5-14.5); Red Blood Cell (RBC) Count 4.22 mill/uL (4.20-5.40); White Blood Cell (WBC) Count 6.5 thou/uL (4.8-10.8)
[2021-07-04 05:24] LABS: Troponin I 0.018 ng/mL (< 0.028)
[2021-07-04 05:37] LABS: ALT (SGPT) 39 U/L (8-55); AST (SGOT) 33 U/L (5-34); Albumin 3.3 g/dL (3.4-4.8); Alkaline Phosphatase 49 U/L (40-110); Anion Gap 14 mmol/L (10-20); BUN (Urea Nitrogen) 25 mg/dL (9.8-20.1); Bilirubin, Total 0.4 mg/dL (0.2-1.2); Calc. Creatinine Clearance 75 mL/min (70-130); Calcium 9.9 mg/dL (7.8-10.44); Carbon Dioxide 24 mmol/L (23-31); Chloride 105 mmol/L (98-107); Globulin 3.1 g/dL (2.4-3.5); Glucose 106 mg/dL (83-110); Potassium 3.5 mmol/L (3.5-5.1); Protein, Total 6.4 g/dL (5.8-8.1); Sodium 139 mmol/L (136-145)
[2021-07-04] MEDS ORDERED: Levothyroxine Sodium 100 MCG TAB PO SCH (06:00)
[2021-07-04] MEDS: Carvedilol 25 MG TAB PO SCH ×2 (08:44→21:40)
[2021-07-04] MEDS: Icosapent Ethyl 1 GM CAPSULE PO SCH ×2 (08:44→17:02)
[2021-07-04] MEDS: Spironolactone 25 MG TAB PO SCH (08:45)
[2021-07-04] MEDS: Digoxin 0.125 MG TAB PO SCH (08:45)
[2021-07-04] MEDS ORDERED: Famotidine/PF 20 mg/2ml Vial SLOW IVP SCH (09:00)
[2021-07-04] MEDS ORDERED: Rivaroxaban 10 MG TAB PO SCH (17:00)
[2021-07-04] MEDS ORDERED: Dextrose 5% in Water 1,000 ML IV PRN (19:37)
[2021-07-04] MEDS ORDERED: Dextrose 50% Abboject 50 ML SYRINGE SLOW IVP PRN (19:37)
[2021-07-04] MEDS ORDERED: Atorvastatin Calcium 40 MG TAB PO SCH (21:00)
[2021-07-04] MEDS ORDERED: Lantus 1000 UNITS/10 ML VIAL SC SCH (21:00)
[2021-07-04] MEDS ORDERED: Torsemide 20 MG TAB PO SCH (21:00)
[2021-07-05 05:39] LABS: Anion Gap 13 mmol/L (10-20); BUN (Urea Nitrogen) 23 mg/dL (9.8-20.1); Calc. Creatinine Clearance 68 mL/min (70-130); Carbon Dioxide 27 mmol/L (23-31); Chloride 102 mmol/L (98-107); Glucose 171 mg/dL (83-110); Magnesium 1.9 mg/dL (1.6-2.6); Potassium 3.9 mmol/L (3.5-5.1); Sodium 138 mmol/L (136-145)
[2021-07-05 05:42] LABS: Hemoglobin 13.3 g/dL (12.0-16.0); Mean Corpuscular HGB CONC 34.4 g/dL (32.0-36.0); Mean Corpuscular Hemoglobin 31.2 pg (27.0-31.0); Mean Corpuscular Volume 90.8 fL (78.0-98.0); Mean Platelet Volume 7.6 fL (7.4-10.4); Platelet Count 194 thou/uL (130-400); RBC Distribution Width 12.2 % (11.5-14.5); Red Blood Cell (RBC) Count 4.26 mill/uL (4.20-5.40); White Blood Cell (WBC) Count 5.3 thou/uL (4.8-10.8)
[2021-07-05 05:43] LABS: Eosinophils 3 % (0-10); Lymphocytes 67 % (21-51); MDiff Complete? YES; Monocytes 6 % (0-10); Neutrophil 21 % (42-75); Platelet Morphology Comment Appears Adequate; RBC Morphology Normal; Reactive Lymphocytes 3 % (0-10)
[2021-07-05] MEDS ORDERED: Levothyroxine 175 MCG TAB PO SCH (06:00)
[2021-07-05] MEDS ORDERED: Regadenoson 0.4 MG/5 ML SYRINGE ONE (10:20)
[2021-07-05] MEDS: Carvedilol 25 MG TAB PO SCH (11:31)
[2021-07-05] MEDS: Spironolactone 25 MG TAB PO SCH (11:31)
[2021-07-05] MEDS: Icosapent Ethyl 1 GM CAPSULE PO SCH (11:31)
[2021-07-05] MEDS: Digoxin 0.125 MG TAB PO SCH (11:32)
[2021-07-05 16:26] VITALS: BP 134/77; TEMP 97.4
== END 2021-07-05 18:15 | disposition home or self-care (01) | DRG 313 ==
LOC: 2SW 17:44 → OBSVTOIN 07-05 15:24
PROVIDERS: ADMIT Internal Medicine; ATTEND Family Medicine
DX: R07.89 Other chest pain (principal); I42.9 Cardiomyopathy, unspecified; I50.22 Chronic systolic (congestive) heart failure; Z20.822 Contact with and (suspected) exposure to COVID-19; E11.69 Type 2 diabetes mellitus with other specified complication; F31.9 Bipolar disorder, unspecified; I11.0 Hypertensive heart disease with heart failure; E78.5 Hyperlipidemia, unspecified; E03.9 Hypothyroidism, unspecified; J42 Unspecified chronic bronchitis; M48.00 Spinal stenosis, site unspecified; Z96.653 Presence of artificial knee joint, bilateral; Z96.612 Presence of left artificial shoulder joint; I25.10 Atherosclerotic heart disease of native coronary artery without angina pectoris; K21.9 Gastro-esophageal reflux disease without esophagitis; Z99.81 Dependence on supplemental oxygen; Z88.5 Allergy status to narcotic agent; Z79.899 Other long term (current) drug therapy; Z79.01 Long term (current) use of anticoagulants; Z79.890 Hormone replacement therapy; Z98.890 Other specified postprocedural states; Z95.810 Presence of automatic (implantable) cardiac defibrillator; Z87.891 Personal history of nicotine dependence
CPT/HCPCS: 36415; 36416; 78452; 80048; 80053; 83735; 84443; 84484; 85025; 93017; 93306; 96374; A9500; G0378; J1815; J2785; S0028

== ENCOUNTER 2023-09-20 07:34 | Observation (INO) | payer MEDICARE ==
[2023-09-20 07:59] LABS: #Eosinphils 0.2 thou/uL (0.0-0.7); #Monocytes 0.6 thou/uL (0.11-0.59); #Neutrophils 2.1 thou/uL (1.40-6.50); %Basophils 0.3 % (0.0-1.0); %Lymphocytes 50.9 % (21.0-51.0); %Neutrophils 35.5 % (42.0-75.0); Hemoglobin 11.3 g/dL (12.0-16.0); Mean Corpuscular HGB CONC 33.2 g/dL (32.0-36.0); Mean Corpuscular Hemoglobin 31.6 pg (27.0-31.0); Mean Platelet Volume 9.7 fL (7.4-10.4); Platelet Count 220 10x3/uL (130-400); RBC Distribution Width 13.5 % (11.5-14.5); Red Blood Cell (RBC) Count 3.58 mill/uL (4.20-5.40); White Blood Cell (WBC) Count 5.9 10x3/uL (4.8-10.8)
[2023-09-20 08:16] LABS: ALT (SGPT) 16 U/L (8-55); AST (SGOT) 17 U/L (5-34); Albumin 3.7 g/dL (3.4-4.8); Alkaline Phosphatase 54 U/L (40-110); Anion Gap 16 mmol/L (10-20); BUN (Urea Nitrogen) 47 mg/dL (9.8-20.1); Bilirubin, Total 0.5 mg/dL (0.2-1.2); Calc. Creatinine Clearance 0 mL/min (70-130); Calcium 10.6 mg/dL (7.8-10.44); Carbon Dioxide 25 mmol/L (23-31); Chloride 98 mmol/L (98-107); Estimated GFR 24; Globulin 3.6 g/dL (2.4-3.5); Glucose 261 mg/dL (83-110); Lipase 51 U/L (8-78); Potassium 4.5 mmol/L (3.5-5.1); Protein, Total 7.3 g/dL (5.8-8.1); Sodium 134 mmol/L (136-145)
[2023-09-20 08:19] LABS: Troponin I 0.061 ng/mL (< 0.028)
[2023-09-20] MEDS ORDERED: Aspirin Chewable 81 MG TAB ONE (08:45)
[2023-09-20] MEDS ORDERED: Nitroglycerin 2% Ointment 1 INCH/1 GM Packet ONE (09:24)
[2023-09-20] MEDS ORDERED: Ondansetron ODT 4 MG TAB PO PRN (10:00)
[2023-09-20] MEDS ORDERED: Acetaminophen 325 MG TAB PO PRN (10:00)
[2023-09-20] MEDS ORDERED: Cyclobenzaprine 10 MG TAB PO PRN (10:06)
[2023-09-20] MEDS ORDERED: Ipratropium/Albuterol 3 ML NEB NEB PRN (10:06)
[2023-09-20] MEDS ORDERED: traMADol HCl 50 MG TAB PO PRN (10:06)
[2023-09-20] MEDS ORDERED: Dextrose 50% Abboject 50 ML SYRINGE IVP PRN (11:00)
[2023-09-20] MEDS ORDERED: Glucagon 1 MG/ML KIT IM PRN (11:00)
[2023-09-20] MEDS ORDERED: Insulin Glargine 30 UNITS/0.3 ML VIAL SC SCH (11:00)
[2023-09-20] MEDS ORDERED: Dextrose 5% in Water 1,000 ML IV PRN ×2 (11:00→12:08)
[2023-09-20] MEDS ORDERED: HumaLOG 300 UNITS/3 ML VIAL SC PRN (12:08)
[2023-09-20] MEDS: Icosapent Ethyl 1 GM CAPSULE PO SCH (17:44)
[2023-09-20] MEDS: Sacubitril 49 MG/Valsartan 51 MG TABLET PO SCH (21:21)
[2023-09-20] MEDS: Torsemide 20 MG TAB PO SCH (21:22)
[2023-09-20] MEDS: Atorvastatin Calcium 40 MG TAB PO SCH (21:22)
[2023-09-20] MEDS: Insulin Glargine 30 UNITS/0.3 ML VIAL SC SCH (21:27)
[2023-09-20 21:38] VITALS: BMI 36.9
[2023-09-21 01:12] LABS: Creatinine, Urine 54.81 mg/dL (47-110)
[2023-09-21] MEDS ORDERED: Levothyroxine 150 MCG TAB PO SCH (06:00)
[2023-09-21] MEDS: Levothyroxine Sodium 125 MCG TAB PO SCH (06:22)
[2023-09-21 06:41] LABS: #Eosinphils 0.2 thou/uL (0.0-0.7); #Monocytes 0.6 thou/uL (0.11-0.59); #Neutrophils 3.7 thou/uL (1.40-6.50); %Basophils 0.3 % (0.0-1.0); %Eosinophils 2.9 % (0.0-10.0); %Monocytes 8.4 % (0.0-10.0); %Neutrophils 48.9 % (42.0-75.0); Hematocrit 38.4 % (36.0-47.0); Hemoglobin 12.4 g/dL (12.0-16.0); Mean Corpuscular HGB CONC 32.3 g/dL (32.0-36.0); Mean Corpuscular Hemoglobin 30.9 pg (27.0-31.0); Mean Corpuscular Volume 95.8 fl (78.0-98.0); Mean Platelet Volume 9.6 fL (7.4-10.4); Platelet Count 261 10x3/uL (130-400); RBC Distribution Width 13.7 % (11.5-14.5); Red Blood Cell (RBC) Count 4.01 mill/uL (4.20-5.40); White Blood Cell (WBC) Count 7.5 10x3/uL (4.8-10.8)
[2023-09-21 07:08] LABS: Anion Gap 15 mmol/L (10-20); BUN (Urea Nitrogen) 41 mg/dL (9.8-20.1); Calc. Creatinine Clearance 50 mL/min (70-130); Calcium 10.6 mg/dL (7.8-10.44); Carbon Dioxide 25 mmol/L (23-31); Chloride 101 mmol/L (98-107); Estimated GFR 37; Potassium 4.1 mmol/L (3.5-5.1); Sodium 137 mmol/L (136-145)
[2023-09-21 07:27] LABS: Critical Call Chemistry NUR.SD13@0725; Glucose 42 mg/dL (83-110)
[2023-09-21] MEDS: Ezetimibe 10 MG TAB PO SCH (08:18)
[2023-09-21] MEDS: Magnesium Oxide 400 MG TAB PO SCH (08:18)
[2023-09-21] MEDS: Spironolactone 25 MG TAB PO SCH (08:18)
[2023-09-21] MEDS: Icosapent Ethyl 1 GM CAPSULE PO SCH ×2 (08:18→17:44)
[2023-09-21] MEDS ORDERED: Enoxaparin 40 MG (0.4 mL) SYRINGE SC SCH (09:00)
[2023-09-21] MEDS ORDERED: Insulin Glargine 30 UNITS/0.3 ML VIAL SC SCH ×2 (09:00)
[2023-09-21] MEDS ORDERED: Ezetimibe 10 MG TAB PO SCH (09:00)
[2023-09-21] MEDS ORDERED: Regadenoson 0.4 MG/5 ML SYRINGE ONE (10:08)
[2023-09-21] MEDS: Isosorbide Mononitrate 30 MG ER.TAB PO SCH (12:21)
[2023-09-21] MEDS: Digoxin 0.125 MG TAB PO SCH (12:21)
[2023-09-21] MEDS: Sacubitril 49 MG/Valsartan 51 MG TABLET PO SCH ×2 (12:22→20:18)
[2023-09-21] MEDS: Torsemide 20 MG TAB PO SCH (20:17)
[2023-09-21] MEDS: Atorvastatin Calcium 40 MG TAB PO SCH (20:18)
[2023-09-21] MEDS: Insulin Glargine 30 UNITS/0.3 ML VIAL SC SCH (21:13)
[2023-09-22] MEDS: Levothyroxine Sodium 125 MCG TAB PO SCH (06:13)
[2023-09-22] MEDS: Isosorbide Mononitrate 30 MG ER.TAB PO SCH (08:12)
[2023-09-22] MEDS: Sacubitril 49 MG/Valsartan 51 MG TABLET PO SCH (08:12)
[2023-09-22] MEDS: Spironolactone 25 MG TAB PO SCH (08:12)
[2023-09-22] MEDS: Digoxin 0.125 MG TAB PO SCH (08:12)
[2023-09-22] MEDS: Icosapent Ethyl 1 GM CAPSULE PO SCH (08:12)
[2023-09-22] MEDS: Magnesium Oxide 400 MG TAB PO SCH (08:12)
[2023-09-22] MEDS: Ezetimibe 10 MG TAB PO SCH (08:12)
[2023-09-22 08:14] LABS: Anion Gap 18 mmol/L (10-20); BUN (Urea Nitrogen) 34 mg/dL (9.8-20.1); Calc. Creatinine Clearance 56 mL/min (70-130); Calcium 9.6 mg/dL (7.8-10.44); Carbon Dioxide 19 mmol/L (23-31); Chloride 103 mmol/L (98-107); Estimated GFR 42; Glucose 128 mg/dL (83-110); Potassium 4.6 mmol/L (3.5-5.1); Sodium 135 mmol/L (136-145)
[2023-09-22] MEDS ORDERED: Carvedilol 25 MG TAB PO SCH (09:00)
[2023-09-22 12:32] VITALS: BP 128/60; TEMP 97.6
== END 2023-09-22 16:28 | disposition home or self-care (01) ==
LOC: ERS 07:34 → ERHOLD 09:47 → 2SW 20:33
PROVIDERS: ADMIT Emergency Medicine; ATTEND Emergency Medicine
DX: I42.8 Other cardiomyopathies (principal); E78.5 Hyperlipidemia, unspecified; I25.10 Atherosclerotic heart disease of native coronary artery without angina pectoris; N28.89 Other specified disorders of kidney and ureter; I50.1 Left ventricular failure, unspecified; G31.84 Mild cognitive impairment of uncertain or unknown etiology; E87.1 Hypo-osmolality and hyponatremia; E03.9 Hypothyroidism, unspecified; I11.0 Hypertensive heart disease with heart failure; I50.20 Unspecified systolic (congestive) heart failure; E83.52 Hypercalcemia; E11.649 Type 2 diabetes mellitus with hypoglycemia without coma; I48.91 Unspecified atrial fibrillation; M19.90 Unspecified osteoarthritis, unspecified site; J44.9 Chronic obstructive pulmonary disease, unspecified; Z95.0 Presence of cardiac pacemaker; Z90.11 Acquired absence of right breast and nipple; Z96.653 Presence of artificial knee joint, bilateral; Z90.49 Acquired absence of other specified parts of digestive tract; Z98.49 Cataract extraction status, unspecified eye; Z98.890 Other specified postprocedural states; Z87.891 Personal history of nicotine dependence; Z88.5 Allergy status to narcotic agent; Z88.8 Allergy status to other drugs, medicaments and biological substances; Z79.899 Other long term (current) drug therapy
CPT/HCPCS: 71045; 78452; 80048 ×2; 80053; 82570; 82962 ×3; 83690; 83880; 84484 ×2; 84540; 85025 ×2; 93005; 93017; 94760 ×3; 96361; 96374; 99285; A9502; G0378 ×3; J2785; 36415; 36416; 96360; J1815; J7999